=== PATIENT | male | born 1955 | race Caucasian/White ===

== ENCOUNTER 2016-10-11 18:08 | Inpatient (IN) ==
[2016-10-11] MEDS ORDERED: Ipratropium/Albuterol Neb 3 ML IH ONE ×2 (18:12→21:58)
[2016-10-11] MEDS ORDERED: methylPREDNISolone 125 MG/2 ML VIAL IVP ONE (18:12)
[2016-10-11] MEDS ORDERED: Albuterol 2.5 MG/3 ML NEBULIZER IH ONE (18:12)
--- NOTE | 2016-10-11 18:16 | Emergency Department Note ---
Disposition Clinical Impression: Respiratory failure with hypercapnia Qualifiers: Chronicity: acute on chronic Qualified Code(s): J96.22 - Acute and chronic respiratory failure with hypercapnia Pneumonia Qualifiers: Pneumonia type: due to unspecified organism Laterality: left Lung location: lower lobe of lung Qualified Code(s): J18.1 - Lobar pneumonia, unspecified organism Disposition: Admitted As Inpatient Condition: Fair Referrals: Rowdy Tinajero DO [Primary Care Provider] - Forms: ED Satisfaction Letter Time of Disposition: 22:12 Altered Mental Status HPI - General Chief Complaint: ED Altered Mental Status Stated Complaint: AMS Time Seen by Provider: 10/11/16 18:11 Source: EMS Mode of arrival: EMS Limitations: altered mental status Nursing Notes Reviewed: Yes Vital Signs Reviewed: Yes - History of Present Illness HPI Narrative: 61-year-old white male was seen here earlier today for a headache. He followed up with his primary care provider outside the emergency department. He was discharged from there to home. He returns today with increased lethargy. He has severe COPD, he is on home oxygen. He is confused and lethargic and could not provide any additional history. 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 confirmed by: family member (Father) Context: COPD Associated symptoms: Reports: other Treatments prior to arrival: oxygen - Related Data Home Medications Medication Instructions Recorded Confirmed Albuterol Neb [Proventil Neb] 2.5 mg IH Q4HR PRN 08/28/15 10/11/16 Albuterol Sulfate [Albuterol 2 puff IH Q4H PRN 08/28/15 10/11/16 Inhaler] Fluticasone/Salmeterol [Advair 1 puff PO BID 08/28/15 10/11/16 100-50 Diskus] Lovastatin 40 mg PO DAILY 08/28/15 10/11/16 Omeprazole [PriLOSEC] 20 mg PO DAILY 08/28/15 10/11/16 Tiotropium [Spiriva] 18 mcg IH DAILY 08/28/15 10/11/16 traZODone [TraZODone] 50 mg PO HS PRN 08/28/15 10/11/16 Insulin Glargine [Lantus] 12 unit SQ HS 09/29/15 10/11/16 Ibuprofen [Motrin] 600 mg PO Q8HR PRN 12/02/15 10/11/16 Famotidine [Heartburn Prevention] 20 mg PO HS 05/24/16 10/11/16 Furosemide [Lasix] 80 mg PO BID 05/24/16 10/11/16 Potassium Chloride [K-Tab ER] 20 meq PO DAILY 05/24/16 10/11/16 Cetirizine HCl [All Day Allergy] 10 mg PO DAILY 05/25/16 10/11/16 Guaifenesin [Iophen Nr] 200 mg PO Q4H PRN 05/25/16 10/11/16 Sennosides [Senna] 17.2 mg PO HS 05/25/16 10/11/16 Previous Rx's Medication Instructions Recorded predniSONE [PredniSONE] 40 mg PO DAILY 5 Days 05/27/16 Albuterol Sulfate [Albuterol 2 puff IH Q6HR PRN #1 hfa.aer.ad 06/27/16 Inhaler] predniSONE [PredniSONE] 10 mg PO DAILY #20 tablet 06/27/16 Allergies Allergy/AdvReac Type Severity Reaction Status Date / Time No Known Allergies Allergy Verified 10/11/16 07:33 Limitations: ROS unobtainable due to patients medical condition (Altered mental status) Past Medical History - Past Medical History Medical history: Reports: cancer, CHF, COPD, diabetes, GERD, hyperlipidemia, hypertension, other Surgical history: Reports: sinus surgery, other Psychiatric history: Reports: anxiety, depression - Social History Smoking Status: Former smoker Smokeless Tobacco Status: No Alcohol use: Reports: none Drug use: Reports: none Physical Exam - General Limitations: altered mental status General appearance: lethargic, other (Arousable, hard of hearing,) - Head Head exam: atraumatic, normocephalic - Eye Eye exam: Present: PERRL, EOMI - ENT ENT exam: normal oropharynx, mucous membranes moist, TM's normal bilaterally - Neck Neck exam: Present: normal inspection, full ROM, trachea midline. Absent: tenderness - Respiratory Respiratory exam: Present: respiratory distress (Moderately dyspneic), wheezes ( Bilateral moderate expiratory), prolonged expiratory phase - Cardiovascular Cardiovascular exam: Present: regular rate, normal rhythm, normal heart sounds - Abdominal Exam Abdominal exam: Present: soft, Non-Tender, normal bowel sounds. Absent: organomegaly, mass - Extremities Exam Extremities exam: Present: normal inspection. Absent: calf tenderness - Back Exam Back exam: Present: normal inspection - Neurological Exam Neurological exam: Present: other (Allergic but arousable. Hard of hearing. Mumbles a few words that are understandable. No facial asymmetry. Tongue is midline. He moves all extremities spontaneously.) - Psychiatric Psychiatric exam: Present: depressed, flat affect - Skin Skin exam: Present: warm, dry. Absent: cyanosis, diaphoresis Course - Reevaluation(s) Reevaluation #1: Clinically improved. His blood gases improved. He is more alert and asking for something to eat. His heart rate is still around 125 to 1:30. He is moving air better. I spoke with Dr. Roberts. He has accepted the patient for admission. Time: 22:10 Vital Signs Temperature 98.7 F 10/11/16 18:10 Pulse Rate 138 10/11/16 18:10 Respiratory Rate 22 10/11/16 18:10 Blood Pressure 133/98 10/11/16 18:10 O2 Sat by Pulse Oximetry 94 10/11/16 18:10 Temperature 98.7 F 10/11/16 20:53 Pulse Rate 137 10/11/16 20:53 Respiratory Rate 20 10/11/16 20:53 Blood Pressure 137/86 10/11/16 20:53 O2 Sat by Pulse Oximetry 94 10/11/16 20:53 Oxygen Delivery Oxygen Delivery Bipap Altered Mental Status - MDM Narrative Medical decision making narrative: Differential includes but is not limited to intracerebral hemorrhage, subarachnoid hemorrhage, respiratory failure, overmedicated - Lab Data Lab results reviewed: Yes I reviewed the patient's lab results. Result diagrams: 10/11/16 18:26 10/11/16 18:26 Lab Results 10/11/16 10/11/16 10/11/16 Range/Units 18:26 18:26 19:20 WBC 9.7 (4.3-11.1) K/mcL RBC 4.91 (4.19-5.50) M/mcL Hgb 14.0 (12.9-16.9) g/dL Hct 45.5 (37.5-50.1) % MCV 92.7 (83.0-100.0) fL MCH 28.5 (28.0-33.3) pg MCHC 30.8 L (31.6-35.5) g/dL RDW 13.6 (11.5-14.5) % Plt Count 229 (140-400) K/mcL MPV 9.6 (9.4-12.4) fL Immature Gran % 0.4 (0-4) % Seg Neutrophils % 79.1 % Lymphocytes % 11.9 % Monocytes % 7.0 % Eosinophils % 1.3 % Basophils % 0.3 % Neutrophils # 7.7 (1.6-8.9) K/mcL Lymphocytes # 1.2 (0.6-4.6) K/mcL Monocytes # 0.7 (0.0-1.3) K/mcL Eosinophils # 0.1 (0.0-0.6) K/mcL Basophils # 0.0 (0.0-0.2) K/mcL ABG pH 7.24 L (7.32-7.45) pH Units ABG pCO2 100 H* (35-45) mmHg ABG pO2 77 L (85-104) mmHg ABG HCO3 42.3 H (21-27) mEQ/L ABG Total CO2 45.3 H (20-26) mEq/L ABG O2 Saturation 91 L (95-98) % ABG Base Excess 14.8 H (-2.0 to 3.0) mEq/L VBG Lactic Acid (0.5-2.2) mmol/L Respiration Rate Liter Flow 4 L/MIN Blood Gas Modality NC Inspired O2 36 % Inspiratory BiPAP cm H2O Expiratory BiPAP cm H2O Sodium 144 (136-145) mEq/L Potassium 4.7 H (3.5-4.5) mEq/L Chloride 96 L (98-109) mEq/L Carbon Dioxide 39 H (19-29) mEq/L BUN 15 (8-26) mg/dL Creatinine 0.84 (0.72-1.25) mg/dL Est GFR ( Amer) > 60 (> 60) Est GFR (Non-Af Amer) > 60 (> 60) BUN/Creatinine Ratio 18 (6-26) Glucose 215 H (70-99) mg/dL Calculated Osmolality 305 H (280-300) Calcium 9.4 (8.6-10.8) mg/dL Total Bilirubin 0.3 (0.2-1.2) mg/dL AST 26 (5-34) Units/L ALT 29 (0-55) Units/L Alkaline Phosphatase 86 (38-126) Units/L Serum Total Protein 7.1 (6.0-8.3) g/dL Albumin 3.6 (3.5-5.0) g/dL Globulin 3.5 (2.4-3.5) g/dL Albumin/Globulin Ratio 1.0 L (1.1-2.2) 10/11/16 10/11/16 Range/Units 21:13 21:41 WBC (4.3-11.1) K/mcL RBC (4.19-5.50) M/mcL Hgb (12.9-16.9) g/dL Hct (37.5-50.1) % MCV (83.0-100.0) fL MCH (28.0-33.3) pg MCHC (31.6-35.5) g/dL RDW (11.5-14.5) % Plt Count (140-400) K/mcL MPV (9.4-12.4) fL Immature Gran % (0-4) % Seg Neutrophils % % Lymphocytes % % Monocytes % % Eosinophils % % Basophils % % Neutrophils # (1.6-8.9) K/mcL Lymphocytes # (0.6-4.6) K/mcL Monocytes # (0.0-1.3) K/mcL Eosinophils # (0.0-0.6) K/mcL Basophils # (0.0-0.2) K/mcL ABG pH 7.27 L (7.32-7.45) pH Units ABG pCO2 93 H* (35-45) mmHg ABG pO2 70 L (85-104) mmHg ABG HCO3 42.5 H (21-27) mEQ/L ABG Total CO2 45.4 H (20-26) mEq/L ABG O2 Saturation 89 L (95-98) % ABG Base Excess 15.6 H (-2.0 to 3.0) mEq/L VBG Lactic Acid 1.2 (0.5-2.2) mmol/L Respiration Rate 14 Liter Flow L/MIN Blood Gas Modality Bipap Inspired O2 40 % Inspiratory BiPAP 14 cm H2O Expiratory BiPAP 6 cm H2O Sodium (136-145) mEq/L Potassium (3.5-4.5) mEq/L Chloride (98-109) mEq/L Carbon Dioxide (19-29) mEq/L BUN (8-26) mg/dL Creatinine (0.72-1.25) mg/dL Est GFR ( Amer) (> 60) Est GFR (Non-Af Amer) (> 60) BUN/Creatinine Ratio (6-26) Glucose (70-99) mg/dL Calculated Osmolality (280-300) Calcium (8.6-10.8) mg/dL Total Bilirubin (0.2-1.2) mg/dL AST (5-34) Units/L ALT (0-55) Units/L Alkaline Phosphatase (38-126) Units/L Serum Total Protein (6.0-8.3) g/dL Albumin (3.5-5.0) g/dL Globulin (2.4-3.5) g/dL Albumin/Globulin Ratio (1.1-2.2) - Radiology Data Radiology results reviewed: Yes I reviewed the patient's radiology results. ITS Impressions Chest X-Ray 10/11/16 18:12 IMPRESSION: Interval increase in partially loculated right pleural effusion with basilar volume loss. Probable left basilar infiltrate. D/ / Felipe Goetz MD / Felipe Goetz MD Interpreting Provider: Felipe Goetz MD Head CT 10/11/16 18:12 IMPRESSION: No acute intracranial abnormality. D/ / Dru Mayo MD / Dru Mayo MD Interpreting Provider: Dru Mayo MD - EKG Data EKG attestation: Yes I reviewed and interpreted this EKG. EKG results narrative: His tachycardia, rate of 140, right ventricular hypertrophy, age indeterminate anterior infarct. Rhythm strip shows sinus tachycardia with rate 140, MI interval 131 ms, QRS of 94 ms with no other ectopy as interpreted by me. TPA Checklist - LKW: 3-4.5 hrs Add. Contraindications Patient/family understanding: The patient/family members have been counseled and understood the risk, benefit , and alternatives of treatment. Critical Care Time Critical Care Time: Yes Total Critical Care Time: 30 Attestation: Critical care time includes my initial evaluation, reevaluation, consultation with the hospitalist, review of lab, ABGs, EKG, x-ray. No procedures were performed.
[2016-10-11 18:36] LABS: Basophils % 0.3 %; Eosinophils # 0.1 K/mcL (0.0-0.6); Eosinophils % 1.3 %; Hematocrit 45.5 % (37.5-50.1); Immature Granulocytes % 0.4 % (0-4); Lymphocytes # 1.2 K/mcL (0.6-4.6); Lymphocytes % 11.9 %; Mean Corpuscular HGB Conc 30.8 g/dL (31.6-35.5); Mean Corpuscular Hemoglobin 28.5 pg (28.0-33.3); Mean Corpuscular Volume 92.7 fL (83.0-100.0); Mean Platelet Volume 9.6 fL (9.4-12.4); Monocytes # 0.7 K/mcL (0.0-1.3); Neutrophils # 7.7 K/mcL (1.6-8.9); Platelet Count 229 K/mcL (140-400); Red Blood Count 4.91 M/mcL (4.19-5.50); Red Cell Distribution Width 13.6 % (11.5-14.5); Segmented Neutrophils % 79.1 %
[2016-10-11 18:54] LABS: Alanine Aminotransferase 29 Units/L (0-55); Albumin 3.6 g/dL (3.5-5.0); Alkaline Phosphatase 86 Units/L (38-126); Aspartate Amino Transferase 26 Units/L (5-34); BUN/Creatinine Ratio 18 (6-26); Bilirubin,Total 0.3 mg/dL (0.2-1.2); Blood Urea Nitrogen 15 mg/dL (8-26); Calcium 9.4 mg/dL (8.6-10.8); Carbon Dioxide 39 mEq/L (19-29); Chloride 96 mEq/L (98-109); Globulin 3.5 g/dL (2.4-3.5); Glucose 215 mg/dL (70-99); Osmolality,Calculated 305 (280-300); Potassium 4.7 mEq/L (3.5-4.5); Sodium 144 mEq/L (136-145); Total Protein 7.1 g/dL (6.0-8.3); eGFR For African Americans > 60 (> 60); eGFR For Non-African Americans > 60 (> 60)
[2016-10-11 19:29] LABS: ABG PH 7.24 pH Units (7.32-7.45)
[2016-10-11 19:31] LABS: ABG Base Excess 14.8 mEq/L (-2.0 to 3.0); ABG HCO3 42.3 mEQ/L (21-27); ABG Oxygen Saturation 91 % (95-98); ABG PCO2 100 mmHg (35-45); ABG PO2 77 mmHg (85-104); ABG TCO2 45.3 mEq/L (20-26); Blood Gas FiO2 36 %; Blood Gas Liter Flow 4 L/MIN
[2016-10-11] MEDS ORDERED: Azithromycin 500 MG in D5% in Water 250 ML IVPB ONE (20:58)
[2016-10-11 21:52] LABS: ABG PH 7.27 pH Units (7.32-7.45)
[2016-10-11 21:54] LABS: ABG PCO2 93 mmHg (35-45); ABG PO2 70 mmHg (85-104)
[2016-10-11 21:55] LABS: ABG Base Excess 15.6 mEq/L (-2.0 to 3.0); ABG HCO3 42.5 mEQ/L (21-27); ABG Oxygen Saturation 89 % (95-98); ABG TCO2 45.4 mEq/L (20-26); Blood Gas BiPAP(E) 6 cm H2O; Blood Gas BiPAP(I) 14 cm H2O; Blood Gas FiO2 40 %; Blood Gas Respiration Rate 14
[2016-10-12] MEDS ORDERED: Albuterol 2.5 MG/3 ML NEBULIZER IH PRN (00:04)
[2016-10-12] MEDS ORDERED: Naloxone 0.4 MG/ML INJ IVP PRN (00:04)
[2016-10-12] MEDS ORDERED: Ipratropium/Albuterol Neb 3 ML AER SCH (00:04)
[2016-10-12] MEDS ORDERED: traZODone 50 MG TABLET PO PRN (00:04)
[2016-10-12] MEDS ORDERED: Azithromycin 500 MG in D5% in Water 250 ML IVPB SCH ×2 (00:04→22:00)
[2016-10-12] MEDS ORDERED: MethylPREDNISolone 40 MG/ML VIAL IVP ONE (00:04)
[2016-10-12] MEDS ORDERED: Loratadine 10 MG TABLET PO SCH (09:00)
[2016-10-12] MEDS: Acetaminophen 325 MG TABLET PO PRN ×2 (09:27→18:11)
[2016-10-12] MEDS: Furosemide 40 MG TABLET PO SCH ×2 (09:28→17:47)
[2016-10-12] MEDS: Ipratropium/Albuterol Neb 3 ML AER PRN ×3 (09:29→22:09)
--- NOTE | 2016-10-12 12:32 | Internal Med History&Physical ---
Date of Encounter: 10/12/16 Time of Encounter: 11:40 Assessment and Plan (1) Acute respiratory failure with hypercapnia Current visit: No Status: Acute He has been started on Rocephin and Zithromax. I will order chest CT to further evaluate. (2) HTN (hypertension) Current visit: No Status: Chronic Blood pressures are well controlled on Lasix. Qualifiers: Hypertension type: essential hypertension Qualified Code(s): I10 - Essential (primary) hypertension (3) Type 2 diabetes mellitus Current visit: No Status: Chronic We will check hemoglobin A1c in a.m. We will do Accu-Cheks with SSI. 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 [facility] We will do repeat chest CT as per above. Qualifiers: Laterality: right Lung location: unspecified part of lung Qualified Code( s): C34.91 - Malignant neoplasm of unspecified part of right bronchus or lung Internal Medicine - H&P: HPI Chief complaint: Dyspnea Admitted From: Home Plans for Post Hospital Care: Home History of present illness: Mr. Tamez is a 61 year old male who came to emergency room earlier the day of admission complaining of dyspnea. He was directed to go to his PCP office. He was seen there but reports no treatment given. He returned to emergency room a few hours later complaining of worsening dyspnea. He was evaluated and found to have right pleural effusion and evidence acute respiratory insufficiency with hypercapnia on ABG. [facility]. He was hospitalized last at [facility] December 2015 with dyspnea. He was hospitalized May 2016 at [facility] with exacerbation of COPD. He has history of lung cancer but does not know the cell type. He reported he had chemotherapy and radiation therapy at [facility]. He does not recall when his last appointment was at [facility] and does not think he has a future appointment pending. He smoked from age [age] up to 4 packs per day. He has a diagnosis of COPD and wears oxygen 29/11. He describes what seems to be a thoracentesis procedure done at [facility] several months ago but was told there was no malignancy found in cytology of fluid. Past Med Surg Social Fam HX - Past Medical History Medical history: cancer, CHF, COPD, diabetes, GERD, hyperlipidemia, hypertension , other Psychiatric history: anxiety, depression - Past Surgical History Surgical History: sinus surgery, other - Social History Smoking Status: Former smoker Smokeless Tobacco Status: No Alcohol use: none Drug use: none - Family History Father Adopted: No Family Member Ethnicity: Non- Living Status: Hx Family Cardiac Disorders: No Hx Family Respiratory Disorders: Yes Hx Family Cancer: No Hx Family GI Disorders: No Hx Family Endocrine Disorder: No Hx Family Neuromuscular Disorders: No Hx Family Neurologic Disorders: No Hx Family HEENT Disorders: No Hx Family Autoimmune Disorders: No Internal Medicine - H&P: Meds Albuterol Neb [Proventil Neb] 2.5 mg IH Q4HR PRN 08/28/15 [History] Albuterol Sulfate [Albuterol Inhaler] 2 puff IH Q4H PRN 08/28/15 [History] Fluticasone/Salmeterol [Advair 100-50 Diskus] 1 puff PO BID 08/28/15 [History] Lovastatin 40 mg PO DAILY 08/28/15 [History] Omeprazole [PriLOSEC] 20 mg PO DAILY 08/28/15 [History] Tiotropium [Spiriva] 18 mcg IH DAILY 08/28/15 [History] traZODone [TraZODone] 50 mg PO HS PRN 08/28/15 [History] Insulin Glargine [Lantus] 12 unit SQ HS 09/29/15 [History] Ibuprofen [Motrin] 600 mg PO Q8HR PRN 12/02/15 [History] Famotidine [Heartburn Prevention] 20 mg PO HS 05/24/16 [History] Furosemide [Lasix] 80 mg PO BID 05/24/16 [History] Potassium Chloride [K-Tab ER] 20 meq PO DAILY 05/24/16 [History] Cetirizine HCl [All Day Allergy] 10 mg PO DAILY 05/25/16 [History] Sennosides [Senna] 17.2 mg PO HS 05/25/16 [History] Albuterol Sulfate [Albuterol Inhaler] 2 puff IH Q6HR PRN #1 hfa.aer.ad 06/27/16 [Rx] Allergies No Known Allergies Allergy (Verified 10/11/16 07:33) All Systems PM: A 10-system review of systems was performed and is negative for pertinent findings except as documented above in the HPI. Review of systems: Review of systems is obtained primarily from old records. He is very hard of hearing. Gen.: His weight had increased from 81.647 kg at the February 2015 [facility] hospitalization to admission weight of 99.337 kg December 2015. It has declined to 90.718 kg now.. Cardiovascular: He denies MT hypertension heart failure angina DVT or pulmonary embolus Respiratory: As per history of present illness GI: He has no known disorder of his liver gallbladder or exocrine pancreas : There is no known hematuria dysuria or kidney stones Neurologic: No history of large distribution strokes or seizures. He does have severe hearing loss Endocrine: He has been diagnosed with DM 2 with his most recent hemoglobin A1c being 8.5% on 08/30/2015. He has hyperlipidemia. TSH was suppressed at 0.277 on 08/30/2015. Hematology/oncology: There is no known blood disorders. He had lung cancer as per history of present illness. There are no other known malignancies. Psychiatric: He has major depressive disorder and panic attacks. Musk skeletal: He has DJD but no known gout or osteoporosis - Constitutional Vitals: Temp Pulse Resp BP Pulse Ox 98.3 F 117 18 106/68 91 10/12/16 10:21 10/12/16 10:21 10/12/16 10:21 10/12/16 10:21 10/12/16 10:21 Exam: Gen.: He is a well-developed overweight male lying in bed who appears in mild respiratory distress, especially when talking HEENT: Head is atraumatic and normal cephalic. Eyes: EOMI. There is no scleral icterus. Mouth: Mucosa is moist. Neck: Supple and nontender. There is no thyromegaly or adenopathy noted. He has a large jowl Heart: Regular and tachycardic at a rate approximately 116/m Lungs: No wheezes or crackles are heard. He has diminished breath sounds diffusely. Abdomen: He has a large abdomen. It is nontender to palpation. No masses or guarding noted. Extremities: There is no cyanosis edema or clubbing noted. Dorsalis pedis and posterior tibial pulses are trace to 1+ palpable bilaterally. His feet are warm to touch. Neurologic: Mental status: He is very hard of hearing making conversation difficult. He seems to be a fair historian at best. He does not remember several details of his history. Cranial nerves: Smile is symmetric. Forehead wrinkles bilaterally. Tongue protrudes midline. EOMI. Motor: There is no pronator drift. Cerebellar: Finger to nose is intact bilaterally. Skin: Warm and dry. He has areas of scaling on his arms Internal Med - H&P Results - Labs CBC & Chem 7: 10/11/16 18:26 10/11/16 18:26
[2016-10-12] MEDS ORDERED: D5% in Water 1,000 ML IVC PRN (14:13)
[2016-10-12] MEDS ORDERED: Dextrose Gel 15 GM PO PRN ×2 (14:13)
[2016-10-12] MEDS ORDERED: *HR* Dextrose 50 % in Water (Syg) 50 ML SYRINGE IVP PRN (14:13)
[2016-10-12] MEDS ORDERED: Mag Hydrox/Al Hydrox/Simeth 30 ML UDC PO PRN (17:32)
[2016-10-12] MEDS: *HR* Enoxaparin 40 MG/0.4 ML SYRINGE SQ SCH (17:47)
[2016-10-12] MEDS: Insulin LISPRO 300 UNITS/3 ML VIAL SQ SCH (17:48)
[2016-10-12] MEDS ORDERED: Ondansetron 4 MG/2 ML VIAL IVP PRN (20:53)
[2016-10-12] MEDS ORDERED: Famotidine 20 MG TABLET PO SCH (21:00)
[2016-10-12] MEDS ORDERED: Insulin LISPRO 300 UNITS/3 ML VIAL SQ SCH (21:00)
[2016-10-12] MEDS ORDERED: Insulin DETEMIR 100 UNIT/ML X5UNITS SQ SCH (21:00)
[2016-10-12] MEDS ORDERED: NON-FORMULARY MEDICATION 1 EACH EACH (Insulin Glargine [Lantus] 12 UNIT) SQ SCH (21:00)
[2016-10-12] MEDS ORDERED: Sennosides 8.6 MG TABLET PO SCH (21:00)
[2016-10-12] MEDS: *HR* HYDROcodone/Acet 5/325 mg TABLET PO PRN (21:08)
--- NOTE | 2016-10-12 23:55 | Electrocardiograph Report ---
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
[2016-10-13] MEDS: *HR* HYDROcodone/Acet 5/325 mg TABLET PO PRN (05:02)
[2016-10-13] MEDS: *HR* Enoxaparin 40 MG/0.4 ML SYRINGE SQ SCH (05:02)
[2016-10-13 05:35] LABS: Basophils % 0.3 %; Eosinophils % 0.5 %; Hematocrit 40.3 % (37.5-50.1); Hemoglobin 12.5 g/dL (12.9-16.9); Immature Granulocytes % 0.2 % (0-4); Lymphocytes # 1.7 K/mcL (0.6-4.6); Lymphocytes % 19.2 %; Mean Corpuscular Hemoglobin 28.4 pg (28.0-33.3); Mean Corpuscular Volume 91.6 fL (83.0-100.0); Mean Platelet Volume 10.6 fL (9.4-12.4); Monocytes # 0.9 K/mcL (0.0-1.3); Monocytes % 9.6 %; Neutrophils # 6.2 K/mcL (1.6-8.9); Platelet Count 210 K/mcL (140-400); Red Cell Distribution Width 13.7 % (11.5-14.5); Segmented Neutrophils % 70.2 %
[2016-10-13 06:00] LABS: BUN/Creatinine Ratio 24 (6-26); Blood Urea Nitrogen 19 mg/dL (8-26); Calcium 9.3 mg/dL (8.6-10.8); Chloride 89 mEq/L (98-109); Glucose 159 mg/dL (70-99); Osmolality,Calculated 302 (280-300); Potassium 3.5 mEq/L (3.5-4.5); Sodium 143 mEq/L (136-145); eGFR For African Americans > 60 (> 60); eGFR For Non-African Americans > 60 (> 60)
[2016-10-13 06:21] LABS: Thyroid Stimulating Hormone 1.374 mcIU/mL (0.350-4.840)
[2016-10-13 06:47] LABS: Carbon Dioxide 42 mEq/L (19-29)
[2016-10-13 07:33] VITALS: BP 116/71
[2016-10-13] MEDS: Insulin LISPRO 300 UNITS/3 ML VIAL SQ SCH (07:39)
[2016-10-13] MEDS: Furosemide 40 MG TABLET PO SCH (07:39)
[2016-10-13 10:05] LABS: Hemoglobin A1C 8.3 %
--- NOTE | 2016-10-13 10:10 | Discharge Summary ---
Date of Encounter: 10/13/16 Time of Encounter: 09:55 - Discharge Diagnosis (1) Acute respiratory failure with hypercapnia Priority: Primary Status: Acute (2) HTN (hypertension) Priority: Secondary Status: Chronic Qualifiers: Hypertension type: essential hypertension Qualified Code(s): I10 - Essential (primary) hypertension (3) Type 2 diabetes mellitus Priority: Secondary Status: Chronic Qualifiers: Diabetes mellitus complication status: with hyperglycemia Diabetes mellitus intermediate card tender insulin use: with intermediate card tender use Qualified Code(s): E11.65 - Type 2 diabetes mellitus with hyperglycemia; 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 (4) Lung cancer Priority: Secondary Status: Chronic Qualifiers: Laterality: right Lung location: unspecified part of lung Qualified Code( s): C34.91 - Malignant neoplasm of unspecified part of right bronchus or lung - Discharge Medications Prescriptions: Cefuroxime PO [Ceftin] 500 mg PO Q12HR #6 tablet Azithromycin [Zithromax] 250 mg PO DAILY #3 tablet Lactobacillus [Culturelle] 1 each PO BID #6 cap.sprink Home Medications: Albuterol Neb [Proventil Neb] 2.5 mg IH Q4HR PRN 08/28/15 [History] Albuterol Sulfate [Albuterol Inhaler] 2 puff IH Q4H PRN 08/28/15 [History] Fluticasone/Salmeterol [Advair 100-50 Diskus] 1 puff PO BID 08/28/15 [History] Lovastatin 40 mg PO DAILY 08/28/15 [History] Omeprazole [PriLOSEC] 20 mg PO DAILY 08/28/15 [History] Tiotropium [Spiriva] 18 mcg IH DAILY 08/28/15 [History] traZODone [TraZODone] 50 mg PO HS PRN 08/28/15 [History] Insulin Glargine [Lantus] 12 unit SQ HS 09/29/15 [History] Ibuprofen [Motrin] 600 mg PO Q8HR PRN 12/02/15 [History] Famotidine [Heartburn Prevention] 20 mg PO HS 05/24/16 [History] Furosemide [Lasix] 80 mg PO BID 05/24/16 [History] Potassium Chloride [K-Tab ER] 20 meq PO DAILY 05/24/16 [History] Sennosides [Senna] 17.2 mg PO HS 05/25/16 [History] Albuterol Sulfate [Albuterol Inhaler] 2 puff IH Q6HR PRN #1 hfa.aer.ad 06/27/16 [Rx] Azithromycin [Zithromax] 250 mg PO DAILY #3 tablet 10/13/16 [Rx] Cefuroxime PO [Ceftin] 500 mg PO Q12HR #6 tablet 10/13/16 [Rx] Lactobacillus [Culturelle] 1 each PO BID #6 cap.sprink 10/13/16 [Rx] Allergies/Adverse Reactions: Allergies No Known Allergies Allergy (Verified 10/11/16 07:33) Date of admission: 10/12/16 14:06 Primary care physician: Rowdy Tinajero DO - Patient Status Disposition: Home, Self-Care Condition: Fair Overall status at discharge: patient is progressing back to baseline - Discharge Instructions Follow Up With: Rowdy Tinajero DO [Primary Care Provider] - 1 week - Diet and Activity Activity: resume usual activities as tolerated Diet: advance to your usual diet Hospital course: Mr. Tamez is a 61 year old male who came to emergency room earlier the day of admission complaining of dyspnea. He was directed to go to his PCP office. He was seen there but reports no treatment given. He returned to emergency room a few hours later complaining of worsening dyspnea. He was evaluated and found to have right pleural effusion and evidence acute respiratory insufficiency with hypercapnia on ABG. He was stabilized and admitted to [facility] floor for ongoing care needs. Initial orders were written by the emergency room physician. I saw him on October 12 and performed the history and physical. He was started on Rocephin and Zithromax. Chest CT was ordered to further evaluate. The CT showed a large right pleural effusion worsened from previous CT of 05/25/2016. There was a persistent somewhat masslike consolidation in the right middle and right lower lobes in the perihilar region mildly worsened from previous CT. Clinically the patient improved with less dyspnea when I saw him on October 13. Attempts made to obtain records from [facility] oncology were unsuccessful. When I saw him on October 13 I felt he was stable for discharge home. I recommended he follow with his PCP Dr. Tinajero within 1 week. He is uncertain about any future appointments with [facility] oncologists. He will receive 3 additional days of antibiotic and probiotics at discharge for possible pneumonia. - Time Spent with Patient Total time spent providing and/or coordinating discharge services: - Constitutional Vitals: Temp Pulse Resp BP Pulse Ox 98.7 F 104 20 116/71 94 10/13/16 06:36 10/13/16 07:32 10/13/16 07:32 10/13/16 07:32 10/13/16 07:32
== END 2016-10-13 11:39 | disposition home or self-care (01) | DRG 133 ==
LOC: EMEROOPIK 18:08 → INPPIK 18:08
PROVIDERS: ADMIT Internal Medicine; ATTEND Internal Medicine

== ENCOUNTER 2017-03-28 09:06 | Observation (INO) ==
[2017-03-28] MEDS ORDERED: Albuterol 2.5 MG/3 ML NEBULIZER IH ONE (09:13)
[2017-03-28] MEDS ORDERED: Ipratropium/Albuterol Neb 3 ML IH ONE (09:13)
[2017-03-28] MEDS ORDERED: methylPREDNISolone 125 MG/2 ML VIAL IVP ONE (09:13)
[2017-03-28] MEDS ORDERED: Ondansetron 4 MG/2 ML VIAL IVP ONE (09:13)
--- NOTE | 2017-03-28 09:18 | Emergency Department Note ---
Disposition Clinical Impression: COPD exacerbation UTI (urinary tract infection) Qualifiers: Urinary tract infection type: acute cystitis Hematuria presence: without hematuria Qualified Code(s): N30.00 - Acute cystitis without hematuria Disposition: Admitted As Inpatient Condition: Good Referrals: Rowdy Tinajero DO [Primary Care Provider] - Forms: ED Satisfaction Letter Time of Disposition: 13:53 SOB HPI - General Chief Complaint: ED Shortness of Breath/Dyspnea Stated Complaint: MADDISON Time Seen by Provider: 03/28/17 09:10 Source: patient, EMS Mode of arrival: EMS Limitations: no limitations Nursing Notes Reviewed: Yes Vital Signs Reviewed: Yes - History of Present Illness 61-year-old white male with history of COPD, CHF, cancer presents with a three- day history of increased difficulty breathing, increased cough. His cough is nonproductive. He denies chest pain. He states she is nauseated and sore in his upper abdomen. He states he has some numbness around his mouth. He is on 3 L of oxygen at home. He denies fever. Pt Subjective Complaint: shortness of breath, cough Onset (ago): day(s) Context: recent illness Severity: moderate Consistency/Duration: constant Improves with: oxygen Worsens with: lying flat Known history of: COPD, congestive heart failure, other (Cancer) Associated symptoms: Reports: nausea/vomiting Treatment prior to arrival: oxygen Cough present: Yes Cough Description: Involuntary Cough Frequency: Intermittent Sputum production: No Sputum Amount: None - Related Data Home oxygen amount: 3 liters Home Medications Medication Instructions Recorded Confirmed Albuterol Neb [Proventil Neb] 2.5 mg IH Q4HR PRN 08/28/15 03/28/17 Albuterol Sulfate [Albuterol 2 puff IH Q4H PRN 08/28/15 03/28/17 Inhaler] Fluticasone/Salmeterol [Advair 1 puff PO BID 08/28/15 03/28/17 100-50 Diskus] Lovastatin 40 mg PO DAILY 08/28/15 03/28/17 Omeprazole [PriLOSEC] 20 mg PO DAILY 08/28/15 03/28/17 Tiotropium [Spiriva] 18 mcg IH DAILY 08/28/15 03/28/17 traZODone [TraZODone] 50 mg PO HS PRN 08/28/15 03/28/17 Insulin Glargine [Lantus] 12 unit SQ HS 09/29/15 03/28/17 Ibuprofen [Motrin] 600 mg PO Q8HR PRN 12/02/15 03/28/17 Famotidine [Heartburn Prevention] 20 mg PO HS 05/24/16 03/28/17 Furosemide [Lasix] 80 mg PO BID 05/24/16 03/28/17 Potassium Chloride [K-Tab ER] 20 meq PO DAILY 05/24/16 03/28/17 Sennosides [Senna] 17.2 mg PO HS 05/25/16 03/28/17 Previous Rx's Medication Instructions Recorded Albuterol Sulfate [Albuterol 2 puff IH Q6HR PRN #1 hfa.aer.ad 06/27/16 Inhaler] Earl/Poly/Jaylan OINT [Triple 1 appl TP TID #30 tube 11/15/16 Antibiotic Ointment] Tramadol HCl [Ultram] 50 mg PO QID #8 tab 11/15/16 Azithromycin [Azithromycin 6-Tab 250 mg PO PER PKG DI #6 tab 12/30/16 Pack] Allergies Allergy/AdvReac Type Severity Reaction Status Date / Time No Known Allergies Allergy Verified 10/11/16 07:33 All systems ED: reviewed and negative except as stated. Constitutional: Denies: fever, chills Eyes: Denies: eye discharge ENT ED: Denies: ear pain, throat pain Cardiovascular: Denies: chest pain Respiratory: Reports: cough, dyspnea. Denies: sputum production Gastrointestinal: Reports: abdominal pain, nausea. Denies: vomiting Genitourinary: Denies: urgency, dysuria, frequency Musculoskeletal: Reports: back pain (Low back midline) Integumentary: Denies: rash Neurological: Reports: headache, weakness, numbness (Around his mouth) Past Medical History - Past Medical History Medical history: Reports: cancer, CHF, COPD, diabetes, GERD, hyperlipidemia, hypertension, other Surgical history: Reports: sinus surgery, other Psychiatric history: Reports: anxiety, depression - Social History Smoking Status: Former smoker Smokeless Tobacco Status: No Alcohol use: Reports: none Drug use: Reports: none Physical Exam - General Limitations: no limitations General appearance: alert, in no apparent distress - Head Head exam: atraumatic, normocephalic - Eye Eye exam: Present: PERRL, EOMI. Absent: scleral icterus, conjunctival injection - ENT ENT exam: normal oropharynx, mucous membranes moist, TM's normal bilaterally - Neck Neck exam: Present: normal inspection, full ROM, trachea midline. Absent: lymphadenopathy - Respiratory Respiratory exam: Present: wheezes (Mild bilateral expiratory), prolonged expiratory phase. Absent: respiratory distress, accessory muscle use - Cardiovascular Cardiovascular exam: Present: tachycardia. Absent: systolic murmur, diastolic murmur, gallop - Abdominal Exam Abdominal exam: Present: soft, Non-Tender, other (Obese). Absent: distention, guarding, rebound, organomegaly, mass - Extremities Exam Extremities exam: Present: normal inspection, full ROM, normal capillary refill. Absent: tenderness, pedal edema, calf tenderness - Neurological Exam Neurological exam: Present: alert, oriented X3. Absent: motor sensory deficit - Psychiatric Psychiatric exam: Present: normal affect, normal mood - Skin Skin exam: Present: warm, dry, intact, normal color. Absent: cyanosis, diaphoresis Course - Reevaluation(s) Reevaluation #1: Critical CO2 called of 44. Time: 10:23 Vital Signs Temperature 98.3 F 03/28/17 09:09 Pulse Rate 88 03/28/17 09:09 Respiratory Rate 18 03/28/17 09:09 Blood Pressure 130/79 03/28/17 09:09 O2 Sat by Pulse Oximetry 90 03/28/17 09:09 Temperature 98.3 F 03/28/17 09:09 Pulse Rate 75 03/28/17 12:23 Respiratory Rate 76 03/28/17 12:23 Blood Pressure 123/76 03/28/17 12:23 O2 Sat by Pulse Oximetry 98 03/28/17 12:23 Oxygen Delivery Oxygen Delivery Room Air Shortness of Breath/Dyspnea - Differential Diagnosis Likely: acute exacerbation of chronic obstructive airways disease, congestive heart failure, pneumonia, pulmonary embolism, pneumothorax, arrhythmia - Lab Data Lab results reviewed: Yes I reviewed the patient's lab results. Result diagrams: 03/28/17 09:31 03/28/17 09:31 Lab Results 03/28/17 03/28/17 03/28/17 Range/Units 09:31 09:31 09:31 WBC 9.8 (4.3-11.1) K/mcL RBC 4.57 (4.19-5.50) M/mcL Hgb 12.8 L (12.9-16.9) g/dL Hct 39.8 (37.5-50.1) % MCV 87.1 (83.0-100.0) fL MCH 28.0 (28.0-33.3) pg MCHC 32.2 (31.6-35.5) g/dL RDW 13.2 (11.5-14.5) % Plt Count 249 (140-400) K/mcL MPV 9.9 (9.4-12.4) fL Immature Gran % 0.5 (0-4) % Seg Neutrophils % 74.3 % Lymphocytes % 14.7 % Monocytes % 8.3 % Eosinophils % 1.9 % Basophils % 0.3 % Neutrophils # 7.3 (1.6-8.9) K/mcL Lymphocytes # 1.4 (0.6-4.6) K/mcL Monocytes # 0.8 (0.0-1.3) K/mcL Eosinophils # 0.2 (0.0-0.6) K/mcL Basophils # 0.0 (0.0-0.2) K/mcL Sodium 142 (136-145) mEq/L Potassium 4.2 (3.5-4.5) mEq/L Chloride 89 L (98-109) mEq/L Carbon Dioxide 44 H* (19-29) mEq/L BUN 10 (8-26) mg/dL Creatinine 0.73 (0.72-1.25) mg/dL Est GFR ( Amer) > 60 (> 60) Est GFR (Non-Af Amer) > 60 (> 60) BUN/Creatinine Ratio 14 (6-26) Glucose 209 H (70-99) mg/dL Calculated Osmolality 299 (280-300) Lactic Acid 1.1 (0.5-2.2) mmol/L Calcium 9.4 (8.6-10.8) mg/dL Total Bilirubin 0.4 (0.2-1.2) mg/dL AST 26 (5-34) Units/L ALT 18 (0-55) Units/L Alkaline Phosphatase 116 (38-126) Units/L Troponin I (0-0.03) ng/mL B-Natriuretic Peptide (0-100) pg/mL Serum Total Protein 7.3 (6.0-8.3) g/dL Albumin 3.1 L (3.5-5.0) g/dL Globulin 4.2 H (2.4-3.5) g/dL Albumin/Globulin Ratio 0.7 L (1.1-2.2) Lipase 7 L (8-78) Units/L Urine Color (Yellow) Urine Clarity (Clear) Urine pH (5.0-8.0) pH Units Ur Specific Estill (1.010-1.025) Urine Protein (Neg-Trace) mg/dL Urine Glucose (UA) (Normal) mg/dL Urine Ketones (Negative) mg/dL Urine Blood (Negative) Urine Nitrite (Negative) Urine Bilirubin (Negative) Urine Urobilinogen (Normal) mg/dL Ur Leukocyte Esterase (Negative) Urine Microscopic WBC (0-3) per hpf Ur Squamous Epith Cells (None-Few) per lpf Urine Bacteria (None-Few) per hpf Urine Mucus (Few) Ur Culture Indicated? (NO) 03/28/17 03/28/17 03/28/17 Range/Units 09:31 09:31 10:21 WBC (4.3-11.1) K/mcL RBC (4.19-5.50) M/mcL Hgb (12.9-16.9) g/dL Hct (37.5-50.1) % MCV (83.0-100.0) fL MCH (28.0-33.3) pg MCHC (31.6-35.5) g/dL RDW (11.5-14.5) % Plt Count (140-400) K/mcL MPV (9.4-12.4) fL Immature Gran % (0-4) % Seg Neutrophils % % Lymphocytes % % Monocytes % % Eosinophils % % Basophils % % Neutrophils # (1.6-8.9) K/mcL Lymphocytes # (0.6-4.6) K/mcL Monocytes # (0.0-1.3) K/mcL Eosinophils # (0.0-0.6) K/mcL Basophils # (0.0-0.2) K/mcL Sodium (136-145) mEq/L Potassium (3.5-4.5) mEq/L Chloride (98-109) mEq/L Carbon Dioxide (19-29) mEq/L BUN (8-26) mg/dL Creatinine (0.72-1.25) mg/dL Est GFR ( Amer) (> 60) Est GFR (Non-Af Amer) (> 60) BUN/Creatinine Ratio (6-26) Glucose (70-99) mg/dL Calculated Osmolality (280-300) Lactic Acid (0.5-2.2) mmol/L Calcium (8.6-10.8) mg/dL Total Bilirubin (0.2-1.2) mg/dL AST (5-34) Units/L ALT (0-55) Units/L Alkaline Phosphatase (38-126) Units/L Troponin I 0.00 (0-0.03) ng/mL B-Natriuretic Peptide 116 H (0-100) pg/mL Serum Total Protein (6.0-8.3) g/dL Albumin (3.5-5.0) g/dL Globulin (2.4-3.5) g/dL Albumin/Globulin Ratio (1.1-2.2) Lipase (8-78) Units/L Urine Color Yellow (Yellow) Urine Clarity Clear (Clear) Urine pH 8.5 H (5.0-8.0) pH Units Ur Specific Estill 1.015 (1.010-1.025) Urine Protein Negative (Neg-Trace) mg/dL Urine Glucose (UA) Normal (Normal) mg/dL Urine Ketones Negative (Negative) mg/dL Urine Blood Negative (Negative) Urine Nitrite Negative (Negative) Urine Bilirubin Negative (Negative) Urine Urobilinogen >=8.0 H (Normal) mg/dL Ur Leukocyte Esterase Trace H (Negative) Urine Microscopic WBC 5-15 H (0-3) per hpf Ur Squamous Epith Cells Few (None-Few) per lpf Urine Bacteria Few (None-Few) per hpf Urine Mucus Few (Few) Ur Culture Indicated? YES A (NO) - Radiology Data Radiology results reviewed: Yes I reviewed the patient's radiology results. Impressions Chest X-Ray 03/28/17 09:13 IMPRESSION: Stable chronic pleural-parenchymal changes, no acute process demonstrated D/ / Timbo Correa MD / Timbo Correa MD Interpreting Provider: Timbo Correa MD Chest CTA 03/28/17 11:19 IMPRESSION: 1. Limited study as discussed. There are no large central pulmonary emboli. Peripheral pulmonary emboli cannot be excluded 2. Stable CT appearance of the chest with large right pleural effusion, stable parenchymal opacities in the right lung, and postoperative changes on the left D/ / Timbo Correa MD / Timbo Correa MD Interpreting Provider: Timbo Correa MD - EKG Data EKG attestation: Yes I reviewed and interpreted this EKG. EKG results narrative: Sinus tachycardia, rate of 108, right ventricular hypertrophy, nonspecific ST-T changes. Rhythm strip shows sinus tachycardia with rate 108, [place] interval 140 ms , QRS of 84 ms with no other ectopy as interpreted by me. This is compared to a tracing dated 12/30/16, no significant change other than the sinus tachycardia.
[2017-03-28 09:43] LABS: Basophils % 0.3 %; Eosinophils # 0.2 K/mcL (0.0-0.6); Eosinophils % 1.9 %; Hematocrit 39.8 % (37.5-50.1); Hemoglobin 12.8 g/dL (12.9-16.9); Immature Granulocytes % 0.5 % (0-4); Lymphocytes # 1.4 K/mcL (0.6-4.6); Lymphocytes % 14.7 %; Mean Corpuscular HGB Conc 32.2 g/dL (31.6-35.5); Mean Corpuscular Volume 87.1 fL (83.0-100.0); Mean Platelet Volume 9.9 fL (9.4-12.4); Monocytes # 0.8 K/mcL (0.0-1.3); Monocytes % 8.3 %; Neutrophils # 7.3 K/mcL (1.6-8.9); Platelet Count 249 K/mcL (140-400); Red Blood Count 4.57 M/mcL (4.19-5.50); Red Cell Distribution Width 13.2 % (11.5-14.5); Segmented Neutrophils % 74.3 %
[2017-03-28 10:01] LABS: Alanine Aminotransferase 18 Units/L (0-55); Albumin 3.1 g/dL (3.5-5.0); Albumin/Globulin Ratio 0.7 (1.1-2.2); Alkaline Phosphatase 116 Units/L (38-126); Aspartate Amino Transferase 26 Units/L (5-34); BUN/Creatinine Ratio 14 (6-26); Bilirubin,Total 0.4 mg/dL (0.2-1.2); Blood Urea Nitrogen 10 mg/dL (8-26); Calcium 9.4 mg/dL (8.6-10.8); Chloride 89 mEq/L (98-109); Globulin 4.2 g/dL (2.4-3.5); Glucose 209 mg/dL (70-99); Lipase 7 Units/L (8-78); Osmolality,Calculated 299 (280-300); Potassium 4.2 mEq/L (3.5-4.5); Sodium 142 mEq/L (136-145); Total Protein 7.3 g/dL (6.0-8.3); eGFR For African Americans > 60 (> 60); eGFR For Non-African Americans > 60 (> 60)
[2017-03-28 10:22] LABS: Carbon Dioxide 44 mEq/L (19-29)
[2017-03-28 10:27] LABS: Bilirubin,Urine Negative (Negative); Blood,Urine Negative (Negative); Clarity,Urine Clear (Clear); Color,Urine Yellow (Yellow); Glucose,Urine (UA) Normal (Normal); Ketones,Urine Negative (Negative); Leukocyte Esterase,Urine Trace (Negative); Nitrite,Urine Negative (Negative); PH,Urine 8.5 pH Units (5.0-8.0); Protein,Urine Negative (Neg-Trace); Specific Gravity,Urine 1.015 (1.010-1.025); Urobilinogen,Urine >=8.0 mg/dL (Normal)
[2017-03-28 10:43] LABS: Bacteria,Urine Few per hpf (None-Few); Mucus,Urine Few (Few); Squamous Epithelial Cell,Urine Few per lpf (None-Few)
[2017-03-28] MEDS ORDERED: traZODone 50 MG TABLET PO PRN ×2 (15:16→15:32)
[2017-03-28] MEDS ORDERED: methylPREDNISolone 125 MG/2 ML VIAL IVP SCH (15:16)
[2017-03-28] MEDS ORDERED: Albuterol 2.5 MG/3 ML NEBULIZER IH PRN ×2 (15:16→16:00)
[2017-03-28] MEDS ORDERED: Ibuprofen 600 MG TABLET PO PRN ×2 (15:16→15:32)
[2017-03-28] MEDS ORDERED: Naloxone 0.4 MG/ML INJ IVP PRN (15:32)
--- NOTE | 2017-03-28 15:41 | Electrocardiograph Report ---
[address] [address] Test Date: 2017-03-28 Pat Name: Dru Tamez Department: [id number] Room: [facility] Gender: M Envelope Maker: [id number] : 1955 Requested By: Huang Crawley Order Number: [id number] Reading MD: Willie Dsouza Measurements Intervals [place] Rate: 108 P: 72 CT: 140 QRS: 136 QRSD: 84 T: 57 QT: 340 QTc: 403 Interpretive Statements SINUS TACHYCARDIA POSSIBLE RIGHT VENTRICULAR HYPERTROPHY Electronically Signed On 03-28-2017 15:39:39 EST by Willie Dsouza
[2017-03-28] MEDS ORDERED: traMADol 50 MG TABLET PO SCH (17:00)
[2017-03-28] MEDS ORDERED: Furosemide 40 MG TABLET PO SCH (17:00)
[2017-03-28] MEDS: Furosemide 40 MG TABLET PO SCH (17:15)
[2017-03-28] MEDS: traMADol 50 MG TABLET PO SCH ×2 (17:15→20:34)
[2017-03-28] MEDS: methylPREDNISolone 125 MG/2 ML VIAL IVP SCH (17:17)
[2017-03-28] MEDS ORDERED: Insulin DETEMIR 100 UNIT/ML X5UNITS SQ SCH ×2 (21:00)
[2017-03-28] MEDS ORDERED: Sennosides 8.6 MG TABLET PO SCH ×2 (21:00)
[2017-03-28] MEDS ORDERED: NON-FORMULARY MEDICATION 1 EACH EACH (Insulin Glargine [Lantus] 12 UNIT) SQ SCH (21:00)
[2017-03-28] MEDS ORDERED: Famotidine 20 MG TABLET PO SCH ×2 (21:00)
[2017-03-28] MEDS ORDERED: Insulin LISPRO 300 UNITS/3 ML VIAL SQ SCH (22:00)
[2017-03-29] MEDS: methylPREDNISolone 125 MG/2 ML VIAL IVP SCH ×2 (00:54→10:20)
[2017-03-29 07:00] VITALS: BP 118/68
[2017-03-29] MEDS ORDERED: Insulin LISPRO 300 UNITS/3 ML VIAL SQ SCH (07:30)
[2017-03-29] MEDS: Furosemide 40 MG TABLET PO SCH (08:10)
[2017-03-29] MEDS: traMADol 50 MG TABLET PO SCH (08:10)
--- NOTE | 2017-03-29 11:38 | Internal Med History&Physical ---
Date of Encounter: 03/29/17 Time of Encounter: 11:05 Assessment and Plan (1) COPD (chronic obstructive pulmonary disease) Current visit: No Status: Acute He was started on Rocephin and Solu-Medrol with nebulizer treatments through emergency room. Qualifiers: COPD type: COPD with acute exacerbation Qualified Code(s): J44.1 - Chronic obstructive pulmonary disease with (acute) exacerbation (2) UTI (urinary tract infection) Current visit: Yes Status: Acute He was started on Rocephin through emergency room. Qualifiers: Urinary tract infection type: acute cystitis Hematuria presence: without hematuria Qualified Code(s): N30.00 - Acute cystitis without hematuria Internal Medicine - H&P: HPI Chief complaint: Dyspnea Admitted From: Home Plans for Post Hospital Care: Home History of present illness: Mr. Tamez is a 61 year old male who came to emergency room stating he had increased dyspnea over the last 3 days. There was minimal cough and no chest pain. He was evaluated in emergency room and felt to have exacerbation of COPD and possible UTI. He was admitted to [facility] for ongoing care needs. Chest CT in the emergency room showed stable appearance compared to 10/30/2016 CT with large right pleural effusion. He has had 2 thoracentesis procedures the past for right pleural effusion but does not know definite results but believes he was told there was no malignancy found in cytology fluid. He has history of lung cancer but does not know the cell type. He reported he had chemotherapy and radiation therapy at [facility]. His family believes he was seen approximately 2 months ago by oncologists. He smoked from age [age] up to 4 packs per day. He has a diagnosis of COPD and wears oxygen 29/11. Past Med Surg Social Fam HX - Past Medical History Medical history: cancer, CHF, COPD, diabetes, GERD, hyperlipidemia, hypertension , other Psychiatric history: anxiety, depression - Past Surgical History Surgical History: sinus surgery, other - Social History Smoking Status: Former smoker Smokeless Tobacco Status: No Alcohol use: none Drug use: none - Family History Father Adopted: No Family Member Ethnicity: Non- Living Status: Hx Family Cardiac Disorders: No Hx Family Respiratory Disorders: Yes Hx Family Cancer: No Hx Family GI Disorders: No Hx Family Endocrine Disorder: No Hx Family Neuromuscular Disorders: No Hx Family Neurologic Disorders: No Hx Family HEENT Disorders: No Hx Family Autoimmune Disorders: No Internal Medicine - H&P: Meds Albuterol Neb [Proventil Neb] 2.5 mg IH Q4HR PRN 08/28/15 [History] Albuterol Sulfate [Albuterol Inhaler] 2 puff IH Q4H PRN 08/28/15 [History] Fluticasone/Salmeterol [Advair 100-50 Diskus] 1 puff PO BID 08/28/15 [History] Lovastatin 40 mg PO DAILY 08/28/15 [History] Omeprazole [PriLOSEC] 20 mg PO DAILY 08/28/15 [History] Tiotropium [Spiriva] 18 mcg IH DAILY 08/28/15 [History] traZODone [TraZODone] 50 mg PO HS PRN 08/28/15 [History] Insulin Glargine [Lantus] 12 unit SQ HS 09/29/15 [History] Ibuprofen [Motrin] 600 mg PO Q8HR PRN 12/02/15 [History] Famotidine [Heartburn Prevention] 20 mg PO HS 05/24/16 [History] Furosemide [Lasix] 80 mg PO BID 05/24/16 [History] Potassium Chloride [K-Tab ER] 20 meq PO DAILY 05/24/16 [History] Sennosides [Senna] 17.2 mg PO HS 05/25/16 [History] Albuterol Sulfate [Albuterol Inhaler] 2 puff IH Q6HR PRN #1 hfa.aer.ad 06/27/16 [Rx] Earl/Poly/Jaylan OINT [Triple Antibiotic Ointment] 1 appl TP TID #30 tube 11/15/16 [ Rx] Tramadol HCl [Ultram] 50 mg PO QID #8 tab 11/15/16 [Rx] Azithromycin [Azithromycin 6-Tab Pack] 250 mg PO PER PKG DI #6 tab 12/30/16 [Rx] 3 Allergy/AdvReac Type Severity Reaction Status Date / Time No Known Allergies Allergy Verified 10/11/16 07:33 All Systems PM: A 10-system review of systems was performed and is negative for pertinent findings except as documented above in the HPI. Review of systems: Review of systems from his October 2016 [facility] hospitalization were reviewed and revised as below Gen.: His weight has increased from 81.647 kg at the February 2015 [facility] hospitalization to admission weight of 100.471 kg on admission now Cardiovascular: He denies MD hypertension heart failure angina DVT or pulmonary embolus Respiratory: As per history of present illness GI: He has no known disorder of his liver gallbladder or exocrine pancreas : There is no known hematuria dysuria or kidney stones Neurologic: No history of large distribution strokes or seizures. He does have severe hearing loss Endocrine: He has been diagnosed with DM 2 approximately 2014 with his most recent hemoglobin A1c being 8.3% on 10/13/2016. He has hyperlipidemia. TSH was suppressed at 0.277 on 08/30/2015 but was normal at 1.374 on 10/13/2016. Hematology/oncology: There is no known blood disorders. He had lung cancer as per history of present illness. There are no other known malignancies. Psychiatric: He has major depressive disorder and panic attacks. [place] skeletal: He has DJD but no known gout or osteoporosis - Constitutional Vitals: Temp Pulse Resp BP Pulse Ox 98.1 F 111 16 118/68 93 03/29/17 06:59 03/29/17 06:59 03/29/17 06:59 03/29/17 06:59 03/29/17 06:59 Exam: Gen.: He is well-developed overweight male who appears in no severe distress HEENT: Head is atraumatic and normocephalic. Eyes: EOMI. There is no scleral icterus. Mouth: Mucosa is moist. Neck: Supple and nontender. There is no thyromegaly or adenopathy noted. Heart: Regular without murmurs gallops or ectopics Lungs: No wheezes or crackles are heard. Abdomen: Soft and nontender. No masses or guarding are noted. Extremities: There is no cyanosis edema or clubbing noted. Dorsalis pedis and posterior tibial pulses are trace palpable bilaterally. Neurologic: Mental status: He is able to answer a few questions but is extremely hard of hearing. Cranial nerves: Smile is symmetric. Forehead wrinkles bilaterally. Tongue protrudes midline. EOMI. Motor: There is no pronator drift. Cerebellar: Finger to nose is intact bilaterally. Skin: Warm and dry Internal Med - H&P Results - Labs CBC & Chem 7: 03/28/17 09:31 03/28/17 09:31
--- NOTE | 2017-03-29 11:57 | Discharge Summary ---
Date of Encounter: 03/29/17 Time of Encounter: 11:05 - Discharge Diagnosis (1) COPD (chronic obstructive pulmonary disease) Priority: Primary Status: Acute Qualifiers: COPD type: COPD with acute exacerbation Qualified Code(s): J44.1 - Chronic obstructive pulmonary disease with (acute) exacerbation (2) UTI (urinary tract infection) Priority: Secondary Status: Acute Qualifiers: Urinary tract infection type: acute cystitis Hematuria presence: without hematuria Qualified Code(s): N30.00 - Acute cystitis without hematuria - Discharge Medications Prescriptions: Lactobacillus [Culturelle] 1 each PO BID #6 cap.sprink levoFLOXacin [Levaquin] 500 mg PO DAILY #3 tablet Home Medications: Albuterol Neb [Proventil Neb] 2.5 mg IH Q4HR PRN 08/28/15 [History] Albuterol Sulfate [Albuterol Inhaler] 2 puff IH Q4H PRN 08/28/15 [History] Fluticasone/Salmeterol [Advair 100-50 Diskus] 1 puff PO BID 08/28/15 [History] Lovastatin 40 mg PO DAILY 08/28/15 [History] Omeprazole [PriLOSEC] 20 mg PO DAILY 08/28/15 [History] Tiotropium [Spiriva] 18 mcg IH DAILY 08/28/15 [History] traZODone [TraZODone] 50 mg PO HS PRN 08/28/15 [History] Insulin Glargine [Lantus] 12 unit SQ HS 09/29/15 [History] Ibuprofen [Motrin] 600 mg PO Q8HR PRN 12/02/15 [History] Famotidine [Heartburn Prevention] 20 mg PO HS 05/24/16 [History] Furosemide [Lasix] 80 mg PO BID 05/24/16 [History] Potassium Chloride [K-Tab ER] 20 meq PO DAILY 05/24/16 [History] Sennosides [Senna] 17.2 mg PO HS 05/25/16 [History] Albuterol Sulfate [Albuterol Inhaler] 2 puff IH Q6HR PRN #1 hfa.aer.ad 06/27/16 [Rx] Earl/Poly/Jaylan OINT [Triple Antibiotic Ointment] 1 appl TP TID #30 tube 11/15/16 [ Rx] Tramadol HCl [Ultram] 50 mg PO QID #8 tab 11/15/16 [Rx] Azithromycin [Azithromycin 6-Tab Pack] 250 mg PO PER PKG DI #6 tab 12/30/16 [Rx] Lactobacillus [Culturelle] 1 each PO BID #6 cap.sprink 03/29/17 [Rx] levoFLOXacin [Levaquin] 500 mg PO DAILY #3 tablet 03/29/17 [Rx] Allergies/Adverse Reactions: 3 Allergy/AdvReac Type Severity Reaction Status Date / Time No Known Allergies Allergy Verified 10/11/16 07:33 Date of admission: 03/28/17 13:59 Primary care physician: Rowdy Tinajero DO - Patient Status Disposition: Home, Self-Care Condition: Good Overall status at discharge: patient is progressing back to baseline - Discharge Instructions Follow Up With: Rowdy Tinajero DO [Primary Care Provider] - 1 week - Diet and Activity Activity: resume usual activities as tolerated Diet: advance to your usual diet Hospital course: Mr. Tamez is a 61 year old male who came to emergency room stating he had increased dyspnea over the last 3 days. There was minimal cough and no chest pain. He was evaluated in emergency room and felt to have exacerbation of COPD and possible UTI. He was admitted to [facility] floor for ongoing care needs. Initial orders were written by the emergency room physician. I saw him on March 29 and performed a history physical and discharge. He was started on Rocephin empirically through emergency room. Solu-Medrol was also given. When I saw him I felt he was likely near his baseline. I reviewed his lab work showing normal WBC without left shift on initial CBC. Reviewed his chest CT report showing stability since the October 2016 study. His vital signs remained stable during hospitalization. Urine culture was ordered but results were not back at time of discharge. He will discharged with Levaquin and lactobacillus for 3 additional days to treat UTI and possible pneumonia. I encouraged the patient and his family to obtain more information about his lung cancer status at his next visit with oncologist. They do not know the cell type or remission status etc. They are uncertain if previous thoracentesis showed malignant pleural effusion. He will follow with his PCP Dr. Tinajero within 1 week. - Time Spent with Patient Total time spent providing and/or coordinating discharge services: - Constitutional Vitals: Temp Pulse Resp BP Pulse Ox 98.1 F 111 16 118/68 93 03/29/17 06:59 03/29/17 06:59 03/29/17 06:59 03/29/17 06:59 03/29/17 06:59
== END 2017-03-29 13:05 | disposition home or self-care (01) ==
LOC: INPPIK 09:06 → EMEROOPIK 09:06 → INPPIK 15:05
PROVIDERS: ADMIT Internal Medicine; ATTEND Internal Medicine

== ENCOUNTER 2017-05-05 03:21 | Observation (INO) ==
[2017-05-05] MEDS ORDERED: Ipratropium/Albuterol Neb 3 ML IH ONE (03:46)
[2017-05-05] MEDS ORDERED: Albuterol 2.5 MG/3 ML NEBULIZER IH ONE (03:46)
[2017-05-05] MEDS ORDERED: methylPREDNISolone 125 MG/2 ML VIAL IVP ONE (03:46)
--- NOTE | 2017-05-05 03:50 | Emergency Department Note ---
Disposition Clinical Impression: COPD exacerbation Pneumonia Qualifiers: Pneumonia type: due to unspecified organism Laterality: bilateral Lung location : lower lobe of lung Qualified Code(s): J18.9 - Pneumonia, unspecified organism Disposition: Admitted As Inpatient Condition: Good Referrals: Rowdy Tinajero DO [Primary Care Provider] - Forms: ED Satisfaction Letter Time of Disposition: 05:38 SOB HPI - General Chief Complaint: ED Shortness of Breath/Dyspnea Stated Complaint: Dyspnea onset 2 weeks Time Seen by Provider: 05/05/17 03:45 Source: patient, EMS Mode of arrival: EMS Limitations: no limitations Nursing Notes Reviewed: Yes Vital Signs Reviewed: Yes - History of Present Illness 61-year-old male who presents with cough and difficulty breathing for 3 weeks. He states got gradually worse. He states his worse at night. He has sharp pain in his chest when he coughs when he breathes deep. His cough is nonproductive. Pt Subjective Complaint: shortness of breath, cough Onset (ago): week(s) (3) Context: recent illness Severity: severe Consistency/Duration: constant Improves with: oxygen, bronchodilators Worsens with: lying flat, exertion, coughing Known history of: COPD Associated symptoms: Reports: denies other symptoms Treatment prior to arrival: oxygen, bronchodilator Cough present: Yes Cough Description: Involuntary Cough Frequency: Intermittent Sputum production: No Sputum Amount: None - Related Data Home oxygen amount: 3 liters Home Medications Medication Instructions Recorded Confirmed Albuterol Neb [Proventil Neb] 2.5 mg IH Q4HR PRN 08/28/15 03/28/17 Albuterol Sulfate [Albuterol 2 puff IH Q4H PRN 08/28/15 03/28/17 Inhaler] Fluticasone/Salmeterol [Advair 1 puff PO BID 08/28/15 03/28/17 100-50 Diskus] Lovastatin 40 mg PO DAILY 08/28/15 03/28/17 Omeprazole [PriLOSEC] 20 mg PO DAILY 08/28/15 03/28/17 Tiotropium [Spiriva] 18 mcg IH DAILY 08/28/15 03/28/17 traZODone [TraZODone] 50 mg PO HS PRN 08/28/15 03/28/17 Insulin Glargine [Lantus] 12 unit SQ HS 09/29/15 03/28/17 Ibuprofen [Motrin] 600 mg PO Q8HR PRN 12/02/15 03/28/17 Famotidine [Heartburn Prevention] 20 mg PO HS 05/24/16 03/28/17 Furosemide [Lasix] 80 mg PO BID 05/24/16 03/28/17 Potassium Chloride [K-Tab ER] 20 meq PO DAILY 05/24/16 03/28/17 Sennosides [Senna] 17.2 mg PO HS 05/25/16 03/28/17 Previous Rx's Medication Instructions Recorded Albuterol Sulfate [Albuterol 2 puff IH Q6HR PRN #1 hfa.aer.ad 06/27/16 Inhaler] Earl/Poly/Jaylan OINT [Triple 1 appl TP TID #30 tube 11/15/16 Antibiotic Ointment] Tramadol HCl [Ultram] 50 mg PO QID #8 tab 11/15/16 Azithromycin [Azithromycin 6-Tab 250 mg PO PER PKG DI #6 tab 12/30/16 Pack] Lactobacillus [Culturelle] 1 each PO BID #6 cap.sprink 03/29/17 levoFLOXacin [Levaquin] 500 mg PO DAILY #3 tablet 03/29/17 Allergies Allergy/AdvReac Type Severity Reaction Status Date / Time No Known Allergies Allergy Verified 10/11/16 07:33 All systems ED: reviewed and negative except as stated. Constitutional: Denies: fever, chills Eyes: Denies: eye discharge ENT ED: Denies: ear pain, throat pain Cardiovascular: Reports: chest pain Respiratory: Reports: cough, dyspnea, wheezes. Denies: sputum production Gastrointestinal: Denies: abdominal pain, nausea, vomiting Musculoskeletal: Denies: back pain Integumentary: Denies: rash Neurological: Denies: headache, weakness, numbness, paresthesias Psychiatric: Reports: anxiety Past Medical History - Past Medical History Medical history: Reports: cancer, CHF, COPD, diabetes, GERD, hyperlipidemia, hypertension, other Surgical history: Reports: sinus surgery, other Psychiatric history: Reports: anxiety, depression - Social History Smoking Status: Former smoker Smokeless Tobacco Status: No Alcohol use: Reports: none Drug use: Reports: none Physical Exam - General Limitations: no limitations General appearance: alert, in no apparent distress - Head Head exam: atraumatic, normocephalic - Eye Eye exam: Present: PERRL, EOMI. Absent: scleral icterus, conjunctival injection - ENT ENT exam: normal oropharynx, mucous membranes moist, TM's normal bilaterally - Neck Neck exam: Present: normal inspection, full ROM, trachea midline. Absent: tenderness, lymphadenopathy - Respiratory Respiratory exam: Present: respiratory distress, wheezes (Moderate lateral expiratory diffuse), accessory muscle use, prolonged expiratory phase - Cardiovascular Cardiovascular exam: Present: normal rhythm, tachycardia. Absent: systolic murmur, diastolic murmur, gallop - Abdominal Exam Abdominal exam: Present: soft, Non-Tender, normal bowel sounds. Absent: distention, organomegaly, mass - Extremities Exam Extremities exam: Present: normal inspection, full ROM, normal capillary refill. Absent: tenderness, pedal edema, calf tenderness - Neurological Exam Neurological exam: Present: alert, oriented X3. Absent: motor sensory deficit - Psychiatric Psychiatric exam: Present: agitated, anxious - Skin Skin exam: Present: warm, dry, intact, normal color. Absent: cyanosis, diaphoresis Course - Reevaluation(s) Reevaluation #1: Moving air better, still has bronchospasm. He is tachycardic at 156. Discussed with Dr. Roberts. He accepts patient for admission. Time: 05:37 Vital Signs Temperature 97.5 F L 05/05/17 03:24 Pulse Rate 121 05/05/17 03:24 Respiratory Rate 20 05/05/17 03:24 Blood Pressure 115/83 05/05/17 03:24 O2 Sat by Pulse Oximetry 96 05/05/17 03:24 Temperature 97.5 F L 05/05/17 03:24 Pulse Rate 140 05/05/17 05:25 Respiratory Rate 16 05/05/17 05:25 Blood Pressure 133/95 05/05/17 05:25 O2 Sat by Pulse Oximetry 94 05/05/17 05:25 Oxygen Delivery Oxygen Delivery Nasal Cannula Shortness of Breath/Dyspnea - [facility] Narrative Medical decision making narrative: Clinically he has COPD exacerbation. He has some infiltrate changes which are consistent with pneumonia or atelectasis. He was given IV Rocephin and azithromycin. He has been given a total of 6 hand-held nebulizers and IV Solu- Medrol. He is moving air better, but he has persistent tachycardia and bronchospasm. He remained to [facility]. He will be admitted for further treatment. - Differential Diagnosis Likely: acute exacerbation of chronic obstructive airways disease, congestive heart failure, pneumonia, asthma with exacerbation, pulmonary embolism, pneumothorax, arrhythmia - Lab Data Result diagrams: 05/05/17 03:45 05/05/17 03:45 Lab Results 05/05/17 05/05/17 05/05/17 Range/Units 03:45 03:45 03:45 WBC 10.3 (4.3-11.1) K/mcL RBC 4.58 (4.19-5.50) M/mcL Hgb 12.5 L (12.9-16.9) g/dL Hct 39.9 (37.5-50.1) % MCV 87.1 (83.0-100.0) fL MCH 27.3 L (28.0-33.3) pg MCHC 31.3 L (31.6-35.5) g/dL RDW 14.0 (11.5-14.5) % Plt Count 247 (140-400) K/mcL MPV 10.4 (9.4-12.4) fL Immature Gran % 0.5 (0-4) % Seg Neutrophils % 74.9 % Lymphocytes % 10.4 % Monocytes % 11.7 % Eosinophils % 2.1 % Basophils % 0.4 % Neutrophils # 7.7 (1.6-8.9) K/mcL Lymphocytes # 1.1 (0.6-4.6) K/mcL Monocytes # 1.2 (0.0-1.3) K/mcL Eosinophils # 0.2 (0.0-0.6) K/mcL Basophils # 0.0 (0.0-0.2) K/mcL Sodium 142 (136-145) mEq/L Potassium 3.4 L (3.5-4.5) mEq/L Chloride 93 L (98-109) mEq/L Carbon Dioxide 37 H (19-29) mEq/L BUN 11 (8-26) mg/dL Creatinine 0.77 (0.72-1.25) mg/dL Est GFR ( Amer) > 60 (> 60) Est GFR (Non-Af Amer) > 60 (> 60) BUN/Creatinine Ratio 14 (6-26) Glucose 172 H (70-99) mg/dL Calculated Osmolality 297 (280-300) Lactic Acid 1.0 (0.5-2.2) mmol/L Calcium 9.4 (8.6-10.8) mg/dL Total Bilirubin 0.6 (0.2-1.2) mg/dL AST 25 (5-34) Units/L ALT 30 (0-55) Units/L Alkaline Phosphatase 107 (38-126) Units/L Troponin I (0-0.03) ng/mL B-Natriuretic Peptide (0-100) pg/mL Serum Total Protein 7.1 (6.0-8.3) g/dL Albumin 3.2 L (3.5-5.0) g/dL Globulin 3.9 H (2.4-3.5) g/dL Albumin/Globulin Ratio 0.8 L (1.1-2.2) 05/05/17 05/05/17 Range/Units 03:45 03:45 WBC (4.3-11.1) K/mcL RBC (4.19-5.50) M/mcL Hgb (12.9-16.9) g/dL Hct (37.5-50.1) % MCV (83.0-100.0) fL MCH (28.0-33.3) pg MCHC (31.6-35.5) g/dL RDW (11.5-14.5) % Plt Count (140-400) K/mcL MPV (9.4-12.4) fL Immature Gran % (0-4) % Seg Neutrophils % % Lymphocytes % % Monocytes % % Eosinophils % % Basophils % % Neutrophils # (1.6-8.9) K/mcL Lymphocytes # (0.6-4.6) K/mcL Monocytes # (0.0-1.3) K/mcL Eosinophils # (0.0-0.6) K/mcL Basophils # (0.0-0.2) K/mcL Sodium (136-145) mEq/L Potassium (3.5-4.5) mEq/L Chloride (98-109) mEq/L Carbon Dioxide (19-29) mEq/L BUN (8-26) mg/dL Creatinine (0.72-1.25) mg/dL Est GFR ( Amer) (> 60) Est GFR (Non-Af Amer) (> 60) BUN/Creatinine Ratio (6-26) Glucose (70-99) mg/dL Calculated Osmolality (280-300) Lactic Acid (0.5-2.2) mmol/L Calcium (8.6-10.8) mg/dL Total Bilirubin (0.2-1.2) mg/dL AST (5-34) Units/L ALT (0-55) Units/L Alkaline Phosphatase (38-126) Units/L Troponin I 0.01 (0-0.03) ng/mL B-Natriuretic Peptide 35 (0-100) pg/mL Serum Total Protein (6.0-8.3) g/dL Albumin (3.5-5.0) g/dL Globulin (2.4-3.5) g/dL Albumin/Globulin Ratio (1.1-2.2)
[2017-05-05 03:52] LABS: Basophils % 0.4 %; Eosinophils # 0.2 K/mcL (0.0-0.6); Eosinophils % 2.1 %; Hematocrit 39.9 % (37.5-50.1); Hemoglobin 12.5 g/dL (12.9-16.9); Immature Granulocytes % 0.5 % (0-4); Lymphocytes # 1.1 K/mcL (0.6-4.6); Lymphocytes % 10.4 %; Mean Corpuscular HGB Conc 31.3 g/dL (31.6-35.5); Mean Corpuscular Hemoglobin 27.3 pg (28.0-33.3); Mean Corpuscular Volume 87.1 fL (83.0-100.0); Mean Platelet Volume 10.4 fL (9.4-12.4); Monocytes # 1.2 K/mcL (0.0-1.3); Monocytes % 11.7 %; Neutrophils # 7.7 K/mcL (1.6-8.9); Platelet Count 247 K/mcL (140-400); Red Blood Count 4.58 M/mcL (4.19-5.50); Segmented Neutrophils % 74.9 %
[2017-05-05 04:10] LABS: Alanine Aminotransferase 30 Units/L (0-55); Albumin 3.2 g/dL (3.5-5.0); Albumin/Globulin Ratio 0.8 (1.1-2.2); Alkaline Phosphatase 107 Units/L (38-126); Aspartate Amino Transferase 25 Units/L (5-34); BUN/Creatinine Ratio 14 (6-26); Bilirubin,Total 0.6 mg/dL (0.2-1.2); Blood Urea Nitrogen 11 mg/dL (8-26); Calcium 9.4 mg/dL (8.6-10.8); Carbon Dioxide 37 mEq/L (19-29); Chloride 93 mEq/L (98-109); Globulin 3.9 g/dL (2.4-3.5); Glucose 172 mg/dL (70-99); Osmolality,Calculated 297 (280-300); Potassium 3.4 mEq/L (3.5-4.5); Sodium 142 mEq/L (136-145); Total Protein 7.1 g/dL (6.0-8.3); eGFR For African Americans > 60 (> 60); eGFR For Non-African Americans > 60 (> 60)
[2017-05-05] MEDS ORDERED: Ipratropium/Albuterol Neb 3 ML IH STA (04:58)
[2017-05-05] MEDS ORDERED: Albuterol 2.5 MG/3 ML NEBULIZER IH STA (04:58)
[2017-05-05] MEDS ORDERED: Azithromycin 500 MG in D5% in Water 250 ML IVPB ONE ×2 (05:33→06:08)
[2017-05-05] MEDS ORDERED: Ibuprofen 600 MG TABLET PO PRN (06:08)
[2017-05-05] MEDS ORDERED: traZODone 50 MG TABLET PO PRN (06:08)
[2017-05-05] MEDS: Furosemide 40 MG TABLET PO SCH ×2 (09:04→17:28)
[2017-05-05] MEDS: Lactobacillus 1 EACH CAP.SPRINK PO SCH ×2 (09:04→21:40)
[2017-05-05] MEDS: traMADol 50 MG TABLET PO SCH ×4 (09:05→21:40)
[2017-05-05] MEDS: Albuterol 2.5 MG/3 ML NEBULIZER IH PRN ×3 (10:30→22:38)
[2017-05-05] MEDS ORDERED: *HR* Propranolol 1 MG/ML VIAL IVP ONE (14:45)
--- NOTE | 2017-05-05 14:50 | Internal Med History&Physical ---
Date of Encounter: 05/05/17 Time of Encounter: 14:15 Assessment and Plan (1) COPD exacerbation Current visit: Yes Status: Acute He was given Rocephin, Solu-Medrol and Zithromax in the emergency room. We will continue these and monitor progress. (2) Anemia Current visit: Yes Status: Acute We will order anemia testing in a.m. Qualifiers: Anemia type: unspecified type Qualified Code(s): D64.9 - Anemia, unspecified (3) Tachycardia Current visit: No Status: Acute Give IV beta shell to slow rate and further assess. (4) Lung cancer Current visit: No Status: Chronic Cell type unknown. Remission status unknown Qualifiers: Laterality: right Lung location: unspecified part of lung Qualified Code( s): C34.91 - Malignant neoplasm of unspecified part of right bronchus or lung Internal Medicine - H&P: HPI Chief complaint: Dyspnea and cough Admitted From: Emergency Dept Plans for Post Hospital Care: Home History of present illness: Mr. Tamez is a 61 year old male came to emergency room stating had increased dyspnea and cough over the past 2 weeks. The cough is productive of white phlegm. He complains of sore throat and overall weakness. He was evaluated in emergency room and felt to have exacerbation of COPD with possible pneumonia. He was admitted to [facility] floor for ongoing care needs. He was hospitalized at [facility] approximately 5 weeks ago with diagnosis of COPD. He has history of lung cancer but does not know the cell type. He reports having chemotherapy and radiation therapy at [facility]. He was last seen approximately October 2016 by oncologist with next appointment October 2017. He smoked from age [age] up to 4 packs per day. He has a diagnosis of COPD and wears oxygen 24/7. He had chest CT scan done at the March 2017 admission showing stability since October 2016 CT scan with large right pleural effusion. He has had 2 thoracentesis procedures in the past but does not know definite results. He believes he was told there was no malignancy found on fluid cytology. Past Med Surg Social Fam HX - Past Medical History Medical history: cancer, CHF, COPD, diabetes, GERD, hyperlipidemia, hypertension , other Psychiatric history: anxiety, depression - Past Surgical History Surgical History: sinus surgery, other - Social History Smoking Status: Former smoker Smokeless Tobacco Status: No Alcohol use: none Drug use: none - Family History Father Adopted: No Family Member Ethnicity: Non- Living Status: Hx Family Cardiac Disorders: No Hx Family Respiratory Disorders: Yes Hx Family Cancer: No Hx Family GI Disorders: No Hx Family Endocrine Disorder: No Hx Family Neuromuscular Disorders: No Hx Family Neurologic Disorders: No Hx Family HEENT Disorders: No Hx Family Autoimmune Disorders: No Internal Medicine - H&P: Meds Albuterol Neb [Proventil Neb] 2.5 mg IH Q4HR PRN 08/28/15 [History] Fluticasone/Salmeterol [Advair 100-50 Diskus] 1 puff PO BID 08/28/15 [History] Lovastatin 40 mg PO DAILY 08/28/15 [History] Omeprazole [PriLOSEC] 20 mg PO DAILY 08/28/15 [History] Tiotropium [Spiriva] 18 mcg IH DAILY 08/28/15 [History] traZODone [TraZODone] 50 mg PO HS PRN 08/28/15 [History] Insulin Glargine [Lantus] 12 unit SQ HS 09/29/15 [History] Ibuprofen [Motrin] 600 mg PO Q8HR PRN 12/02/15 [History] Famotidine [Heartburn Prevention] 20 mg PO HS 05/24/16 [History] Furosemide [Lasix] 80 mg PO BID 05/24/16 [History] Potassium Chloride [K-Tab ER] 20 meq PO DAILY 05/24/16 [History] Sennosides [Senna] 17.2 mg PO HS 05/25/16 [History] Albuterol Sulfate [Albuterol Inhaler] 2 puff IH Q6HR PRN #1 hfa.aer.ad 06/27/16 [Rx] Tramadol HCl [Ultram] 50 mg PO QID #8 tab 11/15/16 [Rx] Lactobacillus [Culturelle] 1 each PO BID #6 cap.sprink 03/29/17 [Rx] 3 Allergy/AdvReac Type Severity Reaction Status Date / Time No Known Allergies Allergy Verified 05/05/17 05:39 All Systems PM: A 10-system review of systems was performed and is negative for pertinent findings except as documented above in the HPI. Review of systems: Review of systems from his March 2017 [facility] hospitalization were reviewed and revised as below Gen.: His weight has increased from 81.647 kg at the February 2015 [facility] hospitalization to admission weight of 96.388 kg on admission now Cardiovascular: He denies [place] hypertension heart failure angina DVT or pulmonary embolus Respiratory: As per history of present illness GI: He has no known disorder of his liver gallbladder or exocrine pancreas : There is no known hematuria dysuria or kidney stones Neurologic: No history of large distribution strokes or seizures. He does have severe hearing loss Endocrine: He has been diagnosed with DM 2 approximately 2014 with his most recent hemoglobin A1c being 8.3% on 10/13/2016. He has hyperlipidemia. TSH was suppressed at 0.277 on 08/30/2015 but was normal at 1.374 on 10/13/2016. Hematology/oncology: There is no known blood disorders. He had lung cancer as per history of present illness. There are no other known malignancies. Psychiatric: He has major depressive disorder and panic attacks. [place] skeletal: He has DJD but no known gout or osteoporosis - Constitutional Vitals: Temp Pulse Resp BP Pulse Ox 98.4 F 144 16 97/64 90 05/05/17 11:49 05/05/17 11:49 05/05/17 13:56 05/05/17 11:49 05/05/17 13:56 Exam: Gen.: He is well-developed overweight male sitting in bed who appears dyspneic and coughs frequently. HEENT: Head is atraumatic and normocephalic. Eyes: EOMI. There is no scleral icterus. Mouth: Mucosa is moist. Neck: Supple and nontender. There is no thyromegaly or adenopathy noted. Heart: Regular without murmurs gallops or ectopics. Rate is 140/m Lungs: He has diminished breath sounds diffusely. No egophony or wheezing is heard. Abdomen: Has a large abdomen. There is mild tenderness to palpation the right lower quadrant that appears to be in the wall musculature. There is a small umbilical hernia which is easily reducible. Extremities: He has trace edema bilaterally in the lower anterior shins. Dorsalis pedis and posterior tibial pulses are trace to 1+ palpable bilaterally. Neurologic: Mental status: He is talkative and a good historian. Cranial nerves : Smile is symmetric. Forehead wrinkles bilaterally. Tongue protrudes midline. EOMI. Motor: There is no pronator drift. Cerebellar: Finger to nose is intact bilaterally. Skin: Warm and dry Internal Med - H&P Results - Labs CBC & Chem 7: 05/05/17 03:45 05/05/17 03:45 - VTE Reasons for not Prescribing Prophylaxis: Refused by patient
[2017-05-05] MEDS: Benzonatate 100 MG CAPSULE PO SCH ×2 (17:25→21:40)
[2017-05-05] MEDS ORDERED: Insulin DETEMIR 100 UNIT/ML X5UNITS SQ SCH (21:00)
[2017-05-05] MEDS ORDERED: Famotidine 20 MG TABLET PO SCH (21:00)
[2017-05-05] MEDS ORDERED: NON-FORMULARY MEDICATION 1 EACH EACH (Insulin Glargine [Lantus] 12 UNIT) SQ SCH (21:00)
[2017-05-06] MEDS: Albuterol 2.5 MG/3 ML NEBULIZER IH PRN (02:18)
[2017-05-06 05:47] LABS: Basophils % 0.3 %; Eosinophils % 0.2 %; Hematocrit 35.8 % (37.5-50.1); Hemoglobin 11.4 g/dL (12.9-16.9); Immature Granulocytes % 0.5 % (0-4); Lymphocytes # 1.2 K/mcL (0.6-4.6); Mean Corpuscular HGB Conc 31.8 g/dL (31.6-35.5); Mean Corpuscular Hemoglobin 27.6 pg (28.0-33.3); Mean Corpuscular Volume 86.7 fL (83.0-100.0); Monocytes # 1.5 K/mcL (0.0-1.3); Monocytes % 14.6 %; Neutrophils # 7.5 K/mcL (1.6-8.9); Platelet Count 243 K/mcL (140-400); Red Blood Count 4.13 M/mcL (4.19-5.50); Red Cell Distribution Width 14.3 % (11.5-14.5); Segmented Neutrophils % 72.4 %
[2017-05-06 06:05] LABS: BUN/Creatinine Ratio 19 (6-26); Blood Urea Nitrogen 16 mg/dL (8-26); Calcium 9.4 mg/dL (8.6-10.8); Chloride 91 mEq/L (98-109); Glucose 209 mg/dL (70-99); Magnesium 1.8 mg/dL (1.6-2.6); Osmolality,Calculated 299 (280-300); Potassium 3.7 mEq/L (3.5-4.5); Sodium 141 mEq/L (136-145); eGFR For African Americans > 60 (> 60); eGFR For Non-African Americans > 60 (> 60)
[2017-05-06 06:30] LABS: Carbon Dioxide 41 mEq/L (19-29)
[2017-05-06] MEDS: Lactobacillus 1 EACH CAP.SPRINK PO SCH (07:28)
[2017-05-06] MEDS: Furosemide 40 MG TABLET PO SCH (07:28)
[2017-05-06] MEDS: Benzonatate 100 MG CAPSULE PO SCH (07:28)
[2017-05-06] MEDS: traMADol 50 MG TABLET PO SCH (07:28)
[2017-05-06] MEDS ORDERED: cefTRIAXone 1,000 MG in Water for inj. (sterile) 10 ML IVP SCH (09:00)
[2017-05-06] MEDS ORDERED: Azithromycin 500 MG in D5% in Water 250 ML IVPB SCH ×2 (09:00→10:00)
--- NOTE | 2017-05-06 09:22 | Electrocardiograph Report ---
[address] [address] Test Date: 2017-05-05 Pat Name: Dru Tamez Department: [id number] Room: [facility] Gender: M Drafter Refrigeration: [place] : 1955 Requested By: Huang Crawley Order Number: [id number] Reading MD: Giuliana Luke Measurements Intervals [place] Rate: 132 P: 57 CO: 141 QRS: 131 QRSD: 86 T: 48 QT: 301 QTc: 379 Interpretive Statements SINUS TACHYCARDIA PATTERN CONSISTENT WITH PULMONARY DISEASE POSSIBLE RIGHT VENTRICULAR HYPERTROPHY Electronically Signed On 05-06-2017 9:21:00 EST by Giuliana Luke
[2017-05-06 10:06] LABS: Folate 20.9 ng/mL (3.0-16.0)
[2017-05-06 10:27] VITALS: BP 123/73
[2017-05-06 11:09] LABS: % Iron Saturation 24 % (20-55); Ferritin > 1350 ng/ml (20-250); Iron 64 mcg/dL (65-175); Transferrin 194 mg/dL (203-362)
--- NOTE | 2017-05-06 12:07 | Discharge Summary ---
Date of Encounter: 05/06/17 Time of Encounter: 11:55 - Discharge Diagnosis (1) COPD exacerbation Priority: Primary Status: Acute (2) Anemia Priority: Secondary Status: Acute Qualifiers: Anemia type: unspecified type Qualified Code(s): D64.9 - Anemia, unspecified (3) Tachycardia Priority: Secondary Status: Acute (4) Lung cancer Priority: Secondary Status: Chronic Qualifiers: Laterality: right Lung location: unspecified part of lung Qualified Code( s): C34.91 - Malignant neoplasm of unspecified part of right bronchus or lung - Discharge Medications Prescriptions: Cefuroxime PO [Ceftin] 500 mg PO Q12HR #6 tablet Azithromycin [Zithromax] 250 mg PO DAILY #3 tablet Benzonatate [Tessalon] 100 mg PO TID #9 capsule Lactobacillus [Culturelle] 1 each PO BID #6 cap.sprink Metoprolol XL (24 HR) Succ [Toprol XL] 25 mg PO DAILY #30 tab.er.24h Home Medications: Albuterol Neb [Proventil Neb] 2.5 mg IH Q4HR PRN 08/28/15 [History] Fluticasone/Salmeterol [Advair 100-50 Diskus] 1 puff PO BID 08/28/15 [History] Lovastatin 40 mg PO DAILY 08/28/15 [History] Omeprazole [PriLOSEC] 20 mg PO DAILY 08/28/15 [History] Tiotropium [Spiriva] 18 mcg IH DAILY 08/28/15 [History] traZODone [TraZODone] 50 mg PO HS PRN 08/28/15 [History] Insulin Glargine [Lantus] 12 unit SQ HS 09/29/15 [History] Ibuprofen [Motrin] 600 mg PO Q8HR PRN 12/02/15 [History] Famotidine [Heartburn Prevention] 20 mg PO HS 05/24/16 [History] Potassium Chloride [K-Tab ER] 20 meq PO DAILY 05/24/16 [History] Sennosides [Senna] 17.2 mg PO HS 05/25/16 [History] Albuterol Sulfate [Albuterol Inhaler] 2 puff IH Q6HR PRN #1 hfa.aer.ad 06/27/16 [Rx] Tramadol HCl [Ultram] 50 mg PO QID #8 tab 07/10/17 [Rx] Azithromycin [Zithromax] 250 mg PO DAILY #3 tablet 05/06/17 [Rx] Benzonatate [Tessalon] 100 mg PO TID #9 capsule 05/06/17 [Rx] Cefuroxime PO [Ceftin] 500 mg PO Q12HR #6 tablet 05/06/17 [Rx] Furosemide [Lasix] 40 mg PO BID #0 05/06/17 [Rx] Lactobacillus [Culturelle] 1 each PO BID #6 cap.sprink 05/06/17 [Rx] Metoprolol XL (24 HR) Succ [Toprol XL] 25 mg PO DAILY #30 tab.er.24h 05/06/17 [ Rx] Allergies/Adverse Reactions: 3 Allergy/AdvReac Type Severity Reaction Status Date / Time No Known Allergies Allergy Verified 05/05/17 05:39 Date of admission: 05/05/17 05:47 Primary care physician: Rowdy Tinajero DO - Patient Status Disposition: Home, Self-Care Condition: Good Overall status at discharge: patient is progressing back to baseline - Discharge Instructions Follow Up With: Rowdy Tinajero DO [Primary Care Provider] - 1 week - Diet and Activity Activity: resume usual activities as tolerated, wear oxygen at all times Diet: advance to your usual diet Hospital course: Mr. Tamez is a 61 year old male who came to emergency room stating had increased dyspnea and cough over the past 2 weeks. The cough is productive of white phlegm. He complains of sore throat and overall weakness. He was evaluated in emergency room and felt to have exacerbation of COPD with possible pneumonia. He was admitted to [facility] floor for ongoing care needs. Initial orders were written by the emergency room physician. I saw him on May 05 and performed the history and physical. He was started on Rocephin , Zithromax, and Solu-Medrol in the emergency room. He remained afebrile during his hospital stay. He felt improved when I saw him on May 06 and will be discharged home. He will follow with his PCP Dr. Tinajero within 1 week. He will continue with antibiotic, probiotic and Tessalon Perles for 3 additional days at discharge. Anemia testing showed iron 64, transferrin saturation 24%, transferrin 194, ferritin greater than 1350, B12 171, and folate 20.9. He will be prescribed OTC B12 1000 mcg daily at discharge. He had tachycardia and was given IV beta shell which slowed his rate. He will continue with oral Toprol-XL 25 mg daily at discharge. Supplemental potassium was given and hypokalemia normalized with potassium 3.7 on day of discharge. His Lasix dose will be reduced to 40 mg twice a day since he has no evidence of failure and BNP peptide was normal at 35 on admission. On May 06 he was stable for discharge home. He will follow with Dr. Tinajero within 1 week. - Time Spent with Patient Total time spent providing and/or coordinating discharge services: - Constitutional Vitals: Temp Pulse Resp BP Pulse Ox 97.7 F 110 18 123/73 94 05/06/17 10:23 05/06/17 10:23 05/06/17 10:23 05/06/17 10:23 05/06/17 10:23 - VTE Reasons for not Prescribing Prophylaxis: Refused by patient
== END 2017-05-06 14:47 | disposition home or self-care (01) ==
LOC: EMEROOPIK 03:21 → INPPIK 03:21
PROVIDERS: ADMIT Internal Medicine; ATTEND Internal Medicine

== ENCOUNTER 2018-07-14 17:09 | Observation (INO) ==
[2018-07-14] MEDS ORDERED: Ipratropium/Albuterol Neb 3 ML IH ONE ×2 (17:33→19:15)
--- NOTE | 2018-07-14 17:35 | Emergency Department Note ---
Disposition Clinical Impression: Community acquired pneumonia Disposition: Admitted As Inpatient Condition: Fair Referrals: Nancy Gama CNP [Primary Care Provider] - Forms: ED Satisfaction Letter Time of Disposition: 18:56 SOB HPI - General Chief Complaint: ED Shortness of Breath/Dyspnea Stated Complaint: SHORT OF BREATH X1 WEEK Time Seen by Provider: 07/14/18 17:15 Source: patient Mode of arrival: ambulatory Limitations: no limitations Nursing Notes Reviewed: Yes Vital Signs Reviewed: Yes - History of Present Illness 63-year-old male who presents emergency room with increasing stress breath cough congestion fever chills aches he denies though any blurred vision double vision loss vision states she is bringing up yellow-green phlegm patient states he is not getting any relief with his aerosol treatments he denies diarrhea melena hematochezia hematemesis he denies numbness tingling weakness denies any recent weight gain or weight loss patient states is been getting worse over the past couple of days to the point today where he is unable to get out moving around he has get get been getting some relief with doing his aerosol treatments all review systems are they are otherwise negative with complete entire review Pt Subjective Complaint: shortness of breath, cough Onset (ago): day(s) Context: recent illness Severity: moderate Consistency/Duration: intermittent, gradually worsening Improves with: oxygen, bronchodilators Worsens with: exertion, movement Known history of: COPD, diabetes, recurrent pneumonia Associated symptoms: Reports: fever, cough, wheezing, sputum production. Denies: chest pain, pain with inspiration, orthopnea, lower extremity pain, polyuria, polydipsia, parasthesias, palpitations, hemoptysis, diaphoresis, nausea/vomiting, syncope, abdominal pain, sense of impending doom Treatment prior to arrival: oxygen, bronchodilator Cough present: Yes Cough Description: Involuntary, Productive, Strong Cough Frequency: Intermittent Sputum production: Yes Sputum Amount: Small Sputum Color: Yellow - Related Data Home Medications Medication Instructions Recorded Confirmed Albuterol Neb [Proventil Neb] 2.5 mg IH Q4HR PRN 08/28/15 12/10/17 Lovastatin 40 mg PO DAILY 08/28/15 12/10/17 Omeprazole [PriLOSEC] 20 mg PO DAILY 08/28/15 12/10/17 Tiotropium [Spiriva] 18 mcg IH DAILY 08/28/15 12/10/17 Insulin Glargine [Lantus] 25 unit SQ HS 09/29/15 12/10/17 Ibuprofen [Motrin] 600 mg PO Q8HR PRN 12/02/15 12/10/17 Sennosides [Senna] 17.2 mg PO HS 05/25/16 12/10/17 Bumetanide 2 mg PO DAILY 07/26/17 12/10/17 Guaifenesin [Mucinex] 600 mg PO BID 07/26/17 12/10/17 Amoxicillin/Clavulanate [Augmentin] 875 mg PO BIDWM 07/14/18 07/14/18 Benzonatate 100 mg PO TID 07/14/18 07/14/18 Furosemide [Lasix] 80 mg PO 07/14/18 Nystatin [Nystatin Suspension] 100,000 unit PO 07/14/18 07/14/18 Polyvinyl Alcohol [Artificial 1 drop RIGHT EYE QID 07/14/18 07/14/18 Tears] Previous Rx's Medication Instructions Recorded Albuterol Sulfate [Albuterol 2 puff IH Q6HR PRN #1 hfa.aer.ad 06/27/16 Inhaler] Metoprolol XL (24 HR) Succ [Toprol 25 mg PO DAILY #30 tab.er.24h 05/06/17 Xl] Potassium Chloride 10 meq PO BIDWM #60 tab.er.prt 07/28/17 Allergies Allergy/AdvReac Type Severity Reaction Status Date / Time No Known Allergies Allergy Verified 12/10/17 17:19 All systems ED: reviewed and negative except as stated. Review of Systems: As Per HPI Constitutional: Reports: fever, weakness. Denies: chills Eyes: Denies: eye pain, eye discharge ENT ED: Denies: ear pain, throat pain Cardiovascular: Reports: dyspnea on exertion. Denies: chest pain, palpitations Respiratory: Reports: cough, dyspnea, wheezes, sputum production. Denies: hemoptysis Gastrointestinal: Denies: abdominal pain, nausea Genitourinary: Denies: urgency, dysuria, frequency Musculoskeletal: Denies: back pain, neck pain Integumentary: Denies: rash, abrasion Neurological: Denies: headache, weakness Psychiatric: Denies: anxiety Endocrine: Denies: fatigue Hematological/Lymphatic: Denies: easy bleeding Allergic/Immunologic: Denies: facial swelling Past Medical History - Past Medical History Attestation: Yes The following information was validated with the patient. Source: patient, old records reviewed, nursing notes reviewed Medical history: Reports: cancer, CHF, COPD, diabetes, GERD, hyperlipidemia, hypertension, other Surgical history: Reports: sinus surgery Psychiatric history: Reports: anxiety, depression - Social History Smoking Status: Former smoker Smokeless Tobacco Status: No Alcohol use: Reports: none Drug use: Reports: none Physical Exam - General Limitations: no limitations General appearance: alert, in no apparent distress, anxious - Head Head exam: atraumatic, normocephalic, normal inspection - Eye Eye exam: Present: normal appearance, PERRL, EOMI - ENT ENT exam: normal exam, normal oropharynx, mucous membranes moist, TM's normal bilaterally, normal external ear exam - Neck Neck exam: Present: normal inspection, full ROM, trachea midline - Chest Chest inspection: Present: normal inspection, symmetric chest wall rise - Respiratory Respiratory exam: Present: wheezes, prolonged expiratory phase - Cardiovascular Cardiovascular exam: Present: tachycardia, normal heart sounds - Abdominal Exam Abdominal exam: Present: soft, Non-Tender, normal bowel sounds - Extremities Exam Extremities exam: Present: normal inspection, full ROM, normal capillary refill. Absent: tenderness, pedal edema, joint swelling, calf tenderness - Expanded Lower Extremity Exam Neurovascular/Tendon exam: Present: normal capillary refill, normal fine/light touch Gait: observed and normal - Back Exam Back exam: Present: normal inspection, full ROM. Absent: muscle spasm - Neurological Exam Neurological exam: Present: alert, oriented X3, CN II-XII intact - Psychiatric Psychiatric exam: Present: normal affect, normal mood - Skin Skin exam: Present: warm, dry, intact, normal color Course Course Narrative: Patient was seen and evaluated examinations performed she was given an aerosol treatment 2 patient's heart rate did go up a little bit with this he then started having the choking coughing to try to bring up some more phlegm and we gave him some additional treatments he was admitted transfer to [facility]. Lites were started he did not meet sepsis criteria as result we did give him fluid hydration upon his ideal body weight approximately 150 pounds transferred to [facility] service of Vital Signs Temperature 98.6 F 07/14/18 17:12 Pulse Rate 119 07/14/18 17:12 Respiratory Rate 18 07/14/18 17:12 Blood Pressure 150/92 07/14/18 17:12 O2 Sat by Pulse Oximetry 94 07/14/18 17:12 Temperature 98.2 F 07/14/18 18:18 Pulse Rate 123 07/14/18 19:02 Respiratory Rate 24 07/14/18 19:02 Blood Pressure 128/81 07/14/18 19:02 O2 Sat by Pulse Oximetry 91 07/14/18 19:02 Oxygen Delivery Oxygen Delivery Nasal Cannula Shortness of Breath/Dyspnea - Medical Records Medical records reviewed: Yes I reviewed the patient's medical records. - Lab Data Lab results reviewed: Yes I reviewed the patient's lab results. Result diagrams: 07/14/18 17:21 07/14/18 17:21 Lab Results 07/14/18 07/14/18 07/14/18 Range/Units 17:21 17:21 17:21 WBC 7.0 (4.3-11.1) K/mcL RBC 4.76 (4.19-5.50) M/mcL Hgb 13.6 (12.9-16.9) g/dL Hct 42.4 (37.5-50.1) % MCV 89.1 (83.0-100.0) fL MCH 28.6 (28.0-33.3) pg MCHC 32.1 (31.6-35.5) g/dL RDW 13.4 (11.5-14.5) % Plt Count 192 (140-400) K/mcL MPV 10.2 (9.4-12.4) fL Immature Gran % 0.6 (0-4) % Seg Neutrophils % 68.3 % Lymphocytes % 16.4 % Monocytes % 11.2 % Eosinophils % 2.9 % Basophils % 0.6 % Neutrophils # 4.8 (1.6-8.9) K/mcL Lymphocytes # 1.1 (0.6-4.6) K/mcL Monocytes # 0.8 (0.0-1.3) K/mcL Eosinophils # 0.2 (0.0-0.6) K/mcL Basophils # 0.0 (0.0-0.2) K/mcL PT 13.0 H (9.4-12.1) Seconds INR 1.2 APTT 34.8 (26.0-36.0) Seconds Sodium (136-145) mEq/L Potassium (3.5-5.1) mEq/L Chloride (98-107) mEq/L Carbon Dioxide (23-29) mEq/L BUN (8-23) mg/dL Creatinine (0.70-1.30) mg/dL Est GFR ( Amer) (> 60) Est GFR (Non-Af Amer) (> 60) BUN/Creatinine Ratio (6-26) Glucose (70-105) mg/dL Calculated Osmolality (280-300) Lactic Acid (0.5-2.2) mmol/L Calcium (8.6-10.3) mg/dL Total Bilirubin (0.3-1.0) mg/dL AST (13-39) Units/L ALT (7-52) Units/L Alkaline Phosphatase (34-104) Units/L Troponin I (< 0.04) ng/mL B-Natriuretic Peptide (Less than 100) pg/mL Serum Total Protein (6.4-8.9) g/dL Albumin (3.5-5.7) g/dL Globulin (2.4-3.5) g/dL Albumin/Globulin Ratio (1.1-2.2) TSH (0.340-5.600) mcIU/mL Urine Color (Yellow) Urine Clarity (Clear) Urine pH (5.0-8.0) pH Units Ur Specific [place] (1.010-1.025) Urine Protein (Neg-Trace) mg/dL Urine Glucose (UA) (Normal) mg/dL Urine Ketones (Negative) mg/dL Urine Blood (Negative) Urine Nitrite (Negative) Urine Bilirubin (Negative) Urine Urobilinogen (Normal) mg/dL Ur Leukocyte Esterase (Negative) Urine Microscopic WBC (0-3) per hpf Ur Squamous Epith Cells (None-Few) per lpf Urine Yeast (None Seen) per hpf Ur Culture Indicated? (NO) 07/14/18 07/14/18 07/14/18 Range/Units 17:21 17:21 17:21 WBC (4.3-11.1) K/mcL RBC (4.19-5.50) M/mcL Hgb (12.9-16.9) g/dL Hct (37.5-50.1) % MCV (83.0-100.0) fL MCH (28.0-33.3) pg MCHC (31.6-35.5) g/dL RDW (11.5-14.5) % Plt Count (140-400) K/mcL MPV (9.4-12.4) fL Immature Gran % (0-4) % Seg Neutrophils % % Lymphocytes % % Monocytes % % Eosinophils % % Basophils % % Neutrophils # (1.6-8.9) K/mcL Lymphocytes # (0.6-4.6) K/mcL Monocytes # (0.0-1.3) K/mcL Eosinophils # (0.0-0.6) K/mcL Basophils # (0.0-0.2) K/mcL PT (9.4-12.1) Seconds INR APTT (26.0-36.0) Seconds Sodium 141 (136-145) mEq/L Potassium 3.3 L (3.5-5.1) mEq/L Chloride 97 L (98-107) mEq/L Carbon Dioxide 37 H (23-29) mEq/L BUN 10 (8-23) mg/dL Creatinine 0.82 (0.70-1.30) mg/dL Est GFR ( Amer) > 60 (> 60) Est GFR (Non-Af Amer) > 60 (> 60) BUN/Creatinine Ratio 12 (6-26) Glucose 304 H (70-105) mg/dL Calculated Osmolality 302 H (280-300) Lactic Acid 2.1 (0.5-2.2) mmol/L Calcium 9.2 (8.6-10.3) mg/dL Total Bilirubin 0.3 (0.3-1.0) mg/dL AST 22 (13-39) Units/L ALT 23 (7-52) Units/L Alkaline Phosphatase 105 H (34-104) Units/L Troponin I < 0.03 (< 0.04) ng/mL B-Natriuretic Peptide 180 H (Less than 100) pg/mL Serum Total Protein 6.9 (6.4-8.9) g/dL Albumin 3.8 (3.5-5.7) g/dL Globulin 3.1 (2.4-3.5) g/dL Albumin/Globulin Ratio 1.2 (1.1-2.2) TSH 1.947 (0.340-5.600) mcIU/mL Urine Color (Yellow) Urine Clarity (Clear) Urine pH (5.0-8.0) pH Units Ur Specific [place] (1.010-1.025) Urine Protein (Neg-Trace) mg/dL Urine Glucose (UA) (Normal) mg/dL Urine Ketones (Negative) mg/dL Urine Blood (Negative) Urine Nitrite (Negative) Urine Bilirubin (Negative) Urine Urobilinogen (Normal) mg/dL Ur Leukocyte Esterase (Negative) Urine Microscopic WBC (0-3) per hpf Ur Squamous Epith Cells (None-Few) per lpf Urine Yeast (None Seen) per hpf Ur Culture Indicated? (NO) 07/14/18 Range/Units 17:40 WBC (4.3-11.1) K/mcL RBC (4.19-5.50) M/mcL Hgb (12.9-16.9) g/dL Hct (37.5-50.1) % MCV (83.0-100.0) fL MCH (28.0-33.3) pg MCHC (31.6-35.5) g/dL RDW (11.5-14.5) % Plt Count (140-400) K/mcL MPV (9.4-12.4) fL Immature Gran % (0-4) % Seg Neutrophils % % Lymphocytes % % Monocytes % % Eosinophils % % Basophils % % Neutrophils # (1.6-8.9) K/mcL Lymphocytes # (0.6-4.6) K/mcL Monocytes # (0.0-1.3) K/mcL Eosinophils # (0.0-0.6) K/mcL Basophils # (0.0-0.2) K/mcL PT (9.4-12.1) Seconds INR APTT (26.0-36.0) Seconds Sodium (136-145) mEq/L Potassium (3.5-5.1) mEq/L Chloride (98-107) mEq/L Carbon Dioxide (23-29) mEq/L BUN (8-23) mg/dL Creatinine (0.70-1.30) mg/dL Est GFR ( Amer) (> 60) Est GFR (Non-Af Amer) (> 60) BUN/Creatinine Ratio (6-26) Glucose (70-105) mg/dL Calculated Osmolality (280-300) Lactic Acid (0.5-2.2) mmol/L Calcium (8.6-10.3) mg/dL Total Bilirubin (0.3-1.0) mg/dL AST (13-39) Units/L ALT (7-52) Units/L Alkaline Phosphatase (34-104) Units/L Troponin I (< 0.04) ng/mL B-Natriuretic Peptide (Less than 100) pg/mL Serum Total Protein (6.4-8.9) g/dL Albumin (3.5-5.7) g/dL Globulin (2.4-3.5) g/dL Albumin/Globulin Ratio (1.1-2.2) TSH (0.340-5.600) mcIU/mL Urine Color Yellow (Yellow) Urine Clarity Clear (Clear) Urine pH 6.5 (5.0-8.0) pH Units Ur Specific [place] 1.010 (1.010-1.025) Urine Protein Negative (Neg-Trace) mg/dL Urine Glucose (UA) 500 H (Normal) mg/dL Urine Ketones Negative (Negative) mg/dL Urine Blood Negative (Negative) Urine Nitrite Negative (Negative) Urine Bilirubin Negative (Negative) Urine Urobilinogen Normal (Normal) mg/dL Ur Leukocyte Esterase Small H (Negative) Urine Microscopic WBC 3-5 H (0-3) per hpf Ur Squamous Epith Cells Few (None-Few) per lpf Urine Yeast Few H (None Seen) per hpf Ur Culture Indicated? YES A (NO) - Radiology Data Radiology results reviewed: Yes I reviewed the patient's radiology results. ITS Impressions Chest X-Ray 07/14/18 17:31 IMPRESSION: Bilateral airspace opacification in the lung bases could represent pneumonia. Unchanged blunting of the costophrenic angles most likely representing scarring D/ / Donato Ruff MD / Donato Ruff MD Interpreting Provider: Donato Ruff MD - EKG Data EKG attestation: Yes I reviewed and interpreted this EKG. EKG results narrative: Sinus tach rate 123 WA and 39 QRS 93 QT 3:30 access 207 Critical Care Time Critical Care Time: Yes Total Critical Care Time: 15 Attestation: Probably clinically significant life-threatening deterioration of this patient exclusive reportable procedures when he starts having chest choking episodes he starts desaturated concern is that he may be have some mucus plugging as result that he does respond well when given the aerosols patient will be transferred to [facility] Sepsis Event Note - Evaluation Sepsis Screen: No Definite Risk Current Stage of Suspected Sepsis: sepsis Possible Source of Sepsis: pulmonary - Focused Exam Date of Encounter: 07/14/18 Time of Encounter: 18:47 Vital Signs: Vital Signs Temp Pulse Resp BP Pulse Ox 07/14/18 19:02 123 24 128/81 91 07/14/18 18:18 98.2 F 135 20 154/96 92 07/14/18 17:46 18 93 07/14/18 17:12 98.6 F 119 18 150/92 94 Respiratory Exam: Present: wheezes, rhonchi Cardiovascular Exam: Present: tachycardia Capillary Refill: < 2 seconds Peripheral Pulse Strength: 3+ normal Peripheral Pulse Location: Radial Skin Exam: normal turgor - Bedside Monitoring Bedside Ultrasound Performed: No Passive Leg raise/fluid bolus: negative
[2018-07-14] MEDS ORDERED: 0.9 % Sodium Chloride 1,000 ML IVC SCH (17:45)
[2018-07-14 17:50] LABS: Bilirubin,Urine Negative (Negative); Blood,Urine Negative (Negative); Clarity,Urine Clear (Clear); Color,Urine Yellow (Yellow); Glucose,Urine (UA) 500 mg/dL (Normal); Ketones,Urine Negative (Negative); Leukocyte Esterase,Urine Small (Negative); Nitrite,Urine Negative (Negative); PH,Urine 6.5 pH Units (5.0-8.0); Protein,Urine Negative (Neg-Trace); Urobilinogen,Urine Normal (Normal)
[2018-07-14 17:57] LABS: Squamous Epithelial Cell,Urine Few per lpf (None-Few); Yeast,Urine Few per hpf (None Seen)
[2018-07-14 18:08] LABS: Basophils % 0.6 %; Eosinophils # 0.2 K/mcL (0.0-0.6); Eosinophils % 2.9 %; Hematocrit 42.4 % (37.5-50.1); Hemoglobin 13.6 g/dL (12.9-16.9); Immature Granulocytes % 0.6 % (0-4); Lymphocytes # 1.1 K/mcL (0.6-4.6); Lymphocytes % 16.4 %; Mean Corpuscular HGB Conc 32.1 g/dL (31.6-35.5); Mean Corpuscular Hemoglobin 28.6 pg (28.0-33.3); Mean Corpuscular Volume 89.1 fL (83.0-100.0); Mean Platelet Volume 10.2 fL (9.4-12.4); Monocytes # 0.8 K/mcL (0.0-1.3); Monocytes % 11.2 %; Neutrophils # 4.8 K/mcL (1.6-8.9); Platelet Count 192 K/mcL (140-400); Red Blood Count 4.76 M/mcL (4.19-5.50); Red Cell Distribution Width 13.4 % (11.5-14.5); Segmented Neutrophils % 68.3 %
[2018-07-14 18:15] LABS: INR 1.2
[2018-07-14 18:26] LABS: Alanine Aminotransferase 23 Units/L (7-52); Albumin 3.8 g/dL (3.5-5.7); Albumin/Globulin Ratio 1.2 (1.1-2.2); Alkaline Phosphatase 105 Units/L (34-104); Aspartate Amino Transferase 22 Units/L (13-39); BUN/Creatinine Ratio 12 (6-26); Bilirubin,Total 0.3 mg/dL (0.3-1.0); Blood Urea Nitrogen 10 mg/dL (8-23); Calcium 9.2 mg/dL (8.6-10.3); Carbon Dioxide 37 mEq/L (23-29); Chloride 97 mEq/L (98-107); Globulin 3.1 g/dL (2.4-3.5); Glucose 304 mg/dL (70-105); Osmolality,Calculated 302 (280-300); Potassium 3.3 mEq/L (3.5-5.1); Sodium 141 mEq/L (136-145); Total Protein 6.9 g/dL (6.4-8.9); Troponin I < 0.03 ng/mL (< 0.04); eGFR For Non-African Americans > 60 (> 60)
[2018-07-14 18:40] LABS: Thyroid Stimulating Hormone 1.947 mcIU/mL (0.340-5.600)
[2018-07-14] MEDS ORDERED: Azithromycin 500 MG in D5% in Water 250 ML IVPB ONE ×2 (18:46→20:00)
[2018-07-14] MEDS ORDERED: D5% in Water 1,000 ML IVC PRN (20:09)
[2018-07-14] MEDS ORDERED: Dextrose Gel 15 GM/37.5 ML TUBE PO PRN ×2 (20:09)
[2018-07-14] MEDS ORDERED: Dextrose 4 GM Chewable Tablets PO PRN ×2 (20:09)
[2018-07-14] MEDS ORDERED: *HR* Dextrose 50 % in Water (Syg) 50 ML SYRINGE IVP PRN (20:09)
[2018-07-14] MEDS ORDERED: Naloxone 0.4 MG/ML INJ IVP PRN (20:09)
[2018-07-14] MEDS ORDERED: Insulin DETEMIR 100 UNIT/ML per UNIT SQ ONE (21:00)
[2018-07-14] MEDS: Ibuprofen 600 MG TABLET PO PRN (22:22)
[2018-07-14] MEDS: Sennosides 8.6 MG TABLET PO SCH (22:23)
[2018-07-14] MEDS: Artificial Tears SOLN 15 ML BOTTLE RIGHT EYE SCH (22:23)
[2018-07-14] MEDS ORDERED: Albuterol 2.5 MG/3 ML NEBULIZER IH ONE (23:08)
[2018-07-14] MEDS ORDERED: Albuterol 2.5 MG/3 ML NEBULIZER ONE (23:13)
[2018-07-14] MEDS: 0.9 % Sodium Chloride 1,000 ML IVC SCH (23:39)
[2018-07-15] LABS: ABG Base Excess 8 mEq/L (-2 to 3); ABG HCO3 36 mEq/L (21-27); ABG Oxygen Saturation 98 % (95-98); ABG PCO2 65 mmHg (35-45); ABG PH 7.35 pH Units (7.32-7.45); ABG PO2 123 mmHg (85-104); ABG TCO2 38 mEq/L (20-26)
[2018-07-15] MEDS ORDERED: *HR* Dextrose 50 % in Water (Vial) 50 ML VIAL IVP PRN (08:30)
[2018-07-15] MEDS: Insulin LISPRO 300 UNITS/3 ML VIAL SQ SCH ×3 (08:50→16:40)
[2018-07-15] MEDS: Artificial Tears SOLN 15 ML BOTTLE RIGHT EYE SCH ×4 (08:50→20:45)
[2018-07-15] MEDS ORDERED: Bumetanide 1 MG TABLET PO SCH (09:00)
[2018-07-15] MEDS ORDERED: Metoprolol XL (24 HR) Succ 25 MG TAB.ER.24H PO SCH (09:00)
--- NOTE | 2018-07-15 10:01 | Internal Med History&Physical ---
Date of Encounter: 07/15/18 Time of Encounter: 09:30 Assessment and Plan (1) Community acquired pneumonia Current visit: Yes Status: Acute Equivocal evidence. Chest CT report May 2018 documented per history of present illness shows left lower lobe scarring. WBC normal with no left shift on differential. He has been started on empiric antibiotics. Qualifiers: Laterality: left Lung location: lower lobe of lung Qualified Code(s): J18.1 - Lobar pneumonia, unspecified organism (2) Hypokalemia Current visit: Yes Status: Acute Probably secondary to diuretic use. Supplemental potassium will be given. (3) Type 2 diabetes mellitus Current visit: No Status: Chronic Hemoglobin A1c 8.2% on 05/04/2018. Continue Lantus/Levemir and do Accu-Cheks with SSI. 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 Toprol will be continued. Qualifiers: Qualified Code(s): I50.33 - Acute on chronic diastolic (congestive) heart failure (5) Lung cancer Current visit: No Status: Chronic As per [facility] oncologists. Qualifiers: Laterality: right Lung location: unspecified part of lung Qualified Code(s): C34.91 - Malignant neoplasm of unspecified part of right bronchus or lung Internal Medicine - H&P: HPI Chief complaint: Cough and dyspnea Admitted From: Emergency Dept Plans for Post Hospital Care: Home History of present illness: Mr. Tamez is a 63 year old male who came to emergency room complaining of increased dyspnea for approximately one week. He had coughing with minimal productivity. He complained of a "fullness" in his stomach and sore throat. He had fevers and chills but denies vomiting or diarrhea. He came to emergency room for evaluation was felt to have pneumonia. He was admitted to [facility] for ongoing care needs. He smoked from age [age] up to 4 packs per day. He has history of non-small cell lung cancer but does not know the stage. He reports having chemotherapy and radiation therapy at [facility] and follows with oncology there. He had chest and abdomen CT 05/24/2018 at [facility]. There was no evidence of recurrent malignancy seen in the chest. Abdominal CT showed no evidence of metastatic disease in the abdomen. 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 He has a diagnosis of COPD and wears oxygen 24/. He has had 2 thoracentesis procedures in the past but does not know definite results. Past Med Surg Social Fam HX - Past Medical History Medical history: cancer, CHF, COPD, diabetes, GERD, hyperlipidemia, hypertension, other Additional medical history: Lung cancer Psychiatric history: anxiety, depression - Past Surgical History Surgical History: sinus surgery Additional surgical history: patrial lung removed, 20 years ago, family unsure of reason, maybe scar tissue - Social History Smoking Status: Former smoker Smokeless Tobacco Status: No Alcohol use: none Drug use: none - Family History Father History Unknown: Yes Adopted: No Family Member Ethnicity: Non- Living Status: Hx Family Cardiac Disorders: No Hx Family Respiratory Disorders: Yes Hx Family Cancer: No Hx Family GI Disorders: No Hx Family Endocrine Disorder: No Hx Family Neuromuscular Disorders: No Hx Family Neurologic Disorders: No Hx Family HEENT Disorders: No Hx Family Autoimmune Disorders: No Internal Medicine - H&P: Meds Albuterol Neb [Proventil Neb] 2.5 mg IH Q4HR PRN 08/28/15 [History] Lovastatin 40 mg PO DAILY 08/28/15 [History] Omeprazole [PriLOSEC] 20 mg PO DAILY 08/28/15 [History] Tiotropium [Spiriva] 18 mcg IH DAILY 08/28/15 [History] Insulin Glargine [Lantus] 25 unit SQ HS 09/29/15 [History] Ibuprofen [Motrin] 600 mg PO Q8HR PRN 12/02/15 [History] Sennosides [Senna] 17.2 mg PO HS 05/25/16 [History] Albuterol Sulfate [Albuterol Inhaler] 2 puff IH Q6HR PRN #1 hfa.aer.ad 06/27/16 [Rx] Metoprolol XL (24 HR) Succ [Toprol Xl] 25 mg PO DAILY #30 tab.er.24h 05/06/17 [Rx] Bumetanide 2 mg PO DAILY 07/26/17 [History] Guaifenesin [Mucinex] 600 mg PO BID 07/26/17 [History] Potassium Chloride 10 meq PO BIDWM #60 tab.er.prt 07/28/17 [Rx] Amoxicillin/Clavulanate [Augmentin] 875 mg PO BIDWM 07/14/18 [History] Benzonatate 100 mg PO TID 07/14/18 [History] Furosemide [Lasix] 80 mg PO 07/14/18 [History] Nystatin [Nystatin Suspension] 100,000 unit PO 07/14/18 [History] Polyvinyl Alcohol [Artificial Tears] 1 drop RIGHT EYE QID 07/14/18 [History] Allergy/AdvReac Type Severity Reaction Status Date / Time No Known Allergies Allergy Verified 12/10/17 17:19 All Systems PM: A 10-system review of systems was performed and is negative for pertinent findings except as documented above in the HPI. Review of systems: Review of systems from his December 2017 [facility] hospitalization were reviewed and revised as below Gen.: His weight increased from 81.647 kg at the February 2015 [facility] hospitalization to admission weight of 102.058 kg December 2014. It is minimally decreased to 99.79 kg at present time. Cardiovascular: He denies [place] hypertension heart failure angina DVT or pulmonary embolus. Echocardiogram 07/04/2017 showed LVEF of 55-60%. There is indeterminate diastolic function reported. E to A ratio was 1.2. There was severe pulmonary hypertension with estimated RVSP 68 mmHg. There is mild tricuspid and pulmonic regurgitation seen. The interventricular septum and posterior wall thickness measurements were 1.12 and 0.83 cm respectively. Respiratory: As per history of present illness GI: He has no known disorder of his liver gallbladder or exocrine pancreas : There is no known hematuria dysuria or kidney stones Neurologic: No history of large distribution strokes or seizures. He does have severe hearing loss. Endocrine: He has been diagnosed with DM 2 approximately 2014 with his most recent hemoglobin A1c being 8.2% on 05/04/2018. He has hyperlipidemia. TSH was suppressed at 0.277 on 08/30/2015 but was normal at 1.947 on 07/14/2018. Hematology/oncology: There is no known blood disorders. He had lung cancer as per history of present illness. There are no other known malignancies. Psychiatric: He has major depressive disorder and panic attacks. [place] skeletal: He has DJD but no known gout or osteoporosis - Constitutional Vitals: Temp Pulse Resp BP Pulse Ox 97.9 F 98 16 116/69 97 07/15/18 07:43 07/15/18 07:43 07/15/18 07:43 07/15/18 07:43 07/15/18 07:43 Exam: Gen.: He is a well-developed obese male sitting on the side of bed wearing BiPAP who appears in no acute distress at present time HEENT: Head is atraumatic and normocephalic. Eyes: EOMI. There is no scleral icterus. Mouth: Mucosa is moist. Neck: Supple and nontender. There is no thyromegaly or adenopathy noted. Heart: Regular without murmurs gallops or ectopics. Lungs: He has slightly diminished breath sounds bilaterally. No wheezes crackles or egophony are heard. Abdomen: He has an umbilical hernia which is easily reducible. No masses or guarding are noted. Abdomen is nontender to palpation. Extremities: He has trace edema of the dorsum of the feet and lower anterior shins bilaterally. Dorsalis pedis and posttibial pulses are trace palpable. Neurologic: Mental status: He is able to answer a few questions but is a fair historian at best. He is hard of hearing. Cranial nerves: Smile is symmetric. Forehead wrinkles bilaterally. Tongue protrudes midline. EOMI. Motor: There is no pronator drift. Cerebellar: Finger to nose is intact bilaterally. Skin: Warm and dry Internal Med - H&P Results - Labs CBC & Chem 7: 07/14/18 17:21 07/14/18 17:21 Labs: Short CBC 07/14/18 Range/Units 17:21 WBC 7.0 (4.3-11.1) K/mcL Hgb 13.6 (12.9-16.9) g/dL Hct 42.4 (37.5-50.1) % Plt Count 192 (140-400) K/mcL Neutrophils # 4.8 (1.6-8.9) K/mcL BMP 07/14/18 17:21 Sodium 141 Potassium 3.3 L Chloride 97 L Carbon Dioxide 37 H BUN 10 Creatinine 0.82 Glucose 304 H Calcium 9.2 Cardiac Enzymes 07/14/18 Range/Units 17:21 Troponin I < 0.03 (< 0.04) ng/mL Liver Function 07/14/18 Range/Units 17:21 Total Bilirubin 0.3 (0.3-1.0) mg/dL AST 22 (13-39) Units/L ALT 23 (7-52) Units/L Alkaline Phosphatase 105 H (34-104) Units/L Albumin 3.8 (3.5-5.7) g/dL Urine 07/14/18 Range/Units 17:40 Urine Color Yellow (Yellow) Urine Clarity Clear (Clear) Urine pH 6.5 (5.0-8.0) pH Units Ur Specific [place] 1.010 (1.010-1.025) Urine Protein Negative (Neg-Trace) mg/dL Urine Glucose (UA) 500 H (Normal) mg/dL - ABG Interpretation ABG results: 07/14/18 23:57 ABG pH 7.35 ABG pCO2 65 H ABG pO2 123 H ABG HCO3 36 H ABG Total CO2 38 H ABG O2 Saturation 98 ABG Base Excess 8 H - Impressions ITS Impressions Chest X-Ray 07/14/18 17:31 IMPRESSION: Bilateral airspace opacification in the lung bases could represent pneumonia. Unchanged blunting of the costophrenic angles most likely representing scarring D/ / Donato Ruff MD / Donato Ruff MD Interpreting Provider: Donato Ruff MD
[2018-07-15] MEDS: 0.9 % Sodium Chloride 1,000 ML IVC SCH ×5 (10:15→15:49)
[2018-07-15] MEDS: Tiotropium 18 MCG inhalation IH SCH (10:35)
[2018-07-15] MEDS: Albuterol 2.5 MG/3 ML NEBULIZER IH PRN ×3 (10:35→23:13)
[2018-07-15] MEDS: Furosemide 40 MG/4 ML VIAL IVP SCH (11:47)
[2018-07-15] MEDS: Nystatin SUSP 5 ML UD.LIQ PO SCH ×3 (11:48→20:47)
[2018-07-15] MEDS: Isosorbide MONOnitrate (24 HR) 30 MG TAB.ER.24H PO SCH (11:48)
[2018-07-15] MEDS: Ibuprofen 600 MG TABLET PO PRN (16:31)
[2018-07-15] MEDS: cefTRIAXone 1,000 MG in Water for inj. (sterile) 20 ML 10 ML IVP SCH (16:31)
[2018-07-15] MEDS ORDERED: Azithromycin 500 MG in D5% in Water 250 ML IVPB SCH (19:00)
[2018-07-15] MEDS: Lactobacillus 1 EACH CAP.SPRINK PO SCH (20:45)
[2018-07-15] MEDS: Insulin DETEMIR 100 UNIT/ML X5UNITS SQ SCH (20:46)
[2018-07-15] MEDS: Sennosides 8.6 MG TABLET PO SCH (20:46)
[2018-07-16 05:48] LABS: Basophils % 0.6 %; Eosinophils # 0.3 K/mcL (0.0-0.6); Eosinophils % 3.9 %; Hematocrit 38.3 % (37.5-50.1); Hemoglobin 11.7 g/dL (12.9-16.9); Immature Granulocytes % 0.7 % (0-4); Lymphocytes # 1.5 K/mcL (0.6-4.6); Lymphocytes % 20.3 %; Mean Corpuscular HGB Conc 30.5 g/dL (31.6-35.5); Mean Corpuscular Hemoglobin 28.2 pg (28.0-33.3); Mean Corpuscular Volume 92.3 fL (83.0-100.0); Mean Platelet Volume 10.6 fL (9.4-12.4); Monocytes # 0.9 K/mcL (0.0-1.3); Monocytes % 11.7 %; Neutrophils # 4.6 K/mcL (1.6-8.9); Platelet Count 180 K/mcL (140-400); Red Blood Count 4.15 M/mcL (4.19-5.50); Red Cell Distribution Width 13.8 % (11.5-14.5); Segmented Neutrophils % 62.8 %
[2018-07-16 06:14] LABS: BUN/Creatinine Ratio 16 (6-26); Blood Urea Nitrogen 13 mg/dL (8-23); Calcium 8.8 mg/dL (8.6-10.3); Carbon Dioxide 41 mEq/L (23-29); Chloride 96 mEq/L (98-107); Glucose 238 mg/dL (70-105); Osmolality,Calculated 298 (280-300); Potassium 3.4 mEq/L (3.5-5.1); Sodium 140 mEq/L (136-145); eGFR For Non-African Americans > 60 (> 60)
[2018-07-16] MEDS: Ibuprofen 600 MG TABLET PO PRN ×2 (06:44→15:22)
[2018-07-16] MEDS: *HR* Enoxaparin 40 MG/0.4 ML SYRINGE SQ SCH (06:45)
[2018-07-16] MEDS ORDERED: NON-FORMULARY MEDICATION 1 EACH EACH (Furosemide [Lasix] 80 MG) PO SCH (09:00)
[2018-07-16] MEDS: Furosemide 40 MG/4 ML VIAL IVP SCH (09:05)
[2018-07-16] MEDS: Nystatin SUSP 5 ML UD.LIQ PO SCH ×4 (09:06→22:24)
[2018-07-16] MEDS: Artificial Tears SOLN 15 ML BOTTLE RIGHT EYE SCH ×4 (09:06→22:25)
[2018-07-16] MEDS: Lactobacillus 1 EACH CAP.SPRINK PO SCH ×2 (09:07→22:24)
[2018-07-16] MEDS: Isosorbide MONOnitrate (24 HR) 30 MG TAB.ER.24H PO SCH (09:07)
[2018-07-16] MEDS: Insulin LISPRO 300 UNITS/3 ML VIAL SQ SCH ×3 (09:10→17:26)
--- NOTE | 2018-07-16 10:30 | Internal Med Progress Note ---
Date of Encounter: 07/16/18 Time of Encounter: 10:20 - Assessment and plan (1) Community acquired pneumonia Current Visit: Yes Status: Acute Assessment and plan: July 16. Equivocal evidence. Continue Rocephin. He developed arm itching with infusion of azithromycin and it was discontinued. Will start oral doxycycline. Anticipate discharge home tomorrow if stable. Qualifiers: Laterality: left Lung location: lower lobe of lung Qualified Code(s): J18.1 - Lobar pneumonia, unspecified organism (2) Hypokalemia Current Visit: Yes Status: Acute Assessment and plan: July 16. Potassium level slightly improved to 3.4. Continue potassium supple mentation. Recheck labs in a.m. (3) Type 2 diabetes mellitus Current Visit: No Status: Chronic Assessment and plan: July 16. Hemoglobin A1c 8.2% on 05/04/2018. Continue Lantus/Levemir and Accu- Cheks with SSI. 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 Clinically improved. BN peptide has decreased to 114. Continue Lopressor and IV Lasix. Qualifiers: Qualified Code(s): I50.33 - Acute on chronic diastolic (congestive) heart failure (5) Lung cancer Current Visit: No Status: Chronic Assessment and plan: July 16. As per [facility] oncologists. Qualifiers: Laterality: right Lung location: unspecified part of lung Qualified Code(s): C34.91 - Malignant neoplasm of unspecified part of right bronchus or lung (6) Anemia Current Visit: Yes Status: Acute Assessment and plan: July 16. Hemoglobin has decreased to 11.7. Order anemia testing in a.m. Qualifiers: Anemia type: unspecified type Qualified Code(s): D64.9 - Anemia, unspecified - Subjective Interval history: July 16. He has no new complaints and feels better. - Constitutional Vitals: Temp Pulse Resp BP Pulse Ox 98.1 F 89 20 120/77 97 07/16/18 07:29 07/16/18 07:29 07/16/18 07:29 07/16/18 07:29 07/16/18 07:29 Exam: He is resting comfortably on the side of the bed and appears in no acute distress. His affect is bright and cheerful. Lungs show very minimal wheezing. I reviewed his medications and lab results. Internal Medicine: Result - Labs CBC & Chem 7: 07/16/18 05:03 07/16/18 05:03 Labs: Short CBC 07/16/18 Range/Units 05:03 WBC 7.3 (4.3-11.1) K/mcL Hgb 11.7 L D (12.9-16.9) g/dL Hct 38.3 (37.5-50.1) % Plt Count 180 (140-400) K/mcL Neutrophils # 4.6 (1.6-8.9) K/mcL BMP 07/16/18 05:03 Sodium 140 Potassium 3.4 L Chloride 96 L Carbon Dioxide 41 H* BUN 13 Creatinine 0.79 Glucose 238 H Calcium 8.8 - ABG Interpretation ABG results: ABG ABG pH 7.35 pH Units (7.32-7.45) 07/14/18 23:57 ABG pCO2 65 mmHg (35-45) H 07/14/18 23:57 ABG pO2 123 mmHg (85-104) H 07/14/18 23:57 ABG O2 Saturation 98 % (95-98) 07/14/18 23:57 PT/INR, D-dimer PT 13.0 Seconds (9.4-12.1) H 07/14/18 17:21 Consult Discharge Plan - Plan Referrals: Nancy Gama, [employer] [Primary Care Provider] - 1 week
[2018-07-16] MEDS: Tiotropium 18 MCG inhalation IH SCH (10:47)
[2018-07-16] MEDS: Albuterol 2.5 MG/3 ML NEBULIZER IH PRN ×2 (10:47→23:19)
[2018-07-16] MEDS: Doxycycline 100 MG CAPSULE PO SCH ×2 (11:53→22:24)
[2018-07-16] MEDS: cefTRIAXone 1,000 MG in Water for inj. (sterile) 20 ML 10 ML IVP SCH (17:24)
[2018-07-16] MEDS: Sennosides 8.6 MG TABLET PO SCH (22:24)
[2018-07-16] MEDS: Insulin DETEMIR 100 UNIT/ML X5UNITS SQ SCH (22:25)
[2018-07-17 06:12] LABS: Basophils % 0.3 %; Eosinophils # 0.2 K/mcL (0.0-0.6); Eosinophils % 3.6 %; Hematocrit 42.1 % (37.5-50.1); Immature Granulocytes % 0.3 % (0-4); Lymphocytes # 1.4 K/mcL (0.6-4.6); Lymphocytes % 20.9 %; Mean Corpuscular HGB Conc 30.9 g/dL (31.6-35.5); Mean Corpuscular Hemoglobin 28.3 pg (28.0-33.3); Mean Corpuscular Volume 91.5 fL (83.0-100.0); Mean Platelet Volume 10.7 fL (9.4-12.4); Monocytes # 0.7 K/mcL (0.0-1.3); Monocytes % 9.8 %; Neutrophils # 4.3 K/mcL (1.6-8.9); Platelet Count 203 K/mcL (140-400); Red Cell Distribution Width 13.4 % (11.5-14.5); Segmented Neutrophils % 65.1 %
[2018-07-17] MEDS: Albuterol 2.5 MG/3 ML NEBULIZER IH PRN (08:41)
[2018-07-17] MEDS: Tiotropium 18 MCG inhalation IH SCH (08:42)
[2018-07-17] MEDS: *HR* Enoxaparin 40 MG/0.4 ML SYRINGE SQ SCH (09:03)
[2018-07-17] MEDS: Insulin LISPRO 300 UNITS/3 ML VIAL SQ SCH ×2 (09:07→12:17)
[2018-07-17] MEDS: Artificial Tears SOLN 15 ML BOTTLE RIGHT EYE SCH ×2 (09:07→12:17)
[2018-07-17] MEDS: Furosemide 40 MG/4 ML VIAL IVP SCH (09:08)
[2018-07-17] MEDS: Isosorbide MONOnitrate (24 HR) 30 MG TAB.ER.24H PO SCH (09:08)
[2018-07-17] MEDS: Nystatin SUSP 5 ML UD.LIQ PO SCH ×2 (09:08→12:17)
[2018-07-17] MEDS: Ibuprofen 600 MG TABLET PO PRN (09:08)
[2018-07-17] MEDS: Lactobacillus 1 EACH CAP.SPRINK PO SCH (09:08)
[2018-07-17] MEDS: Doxycycline 100 MG CAPSULE PO SCH (09:08)
[2018-07-17 09:30] LABS: % Iron Saturation 19 % (20-55); Ferritin 152 ng/mL (20-250); Iron 58 mcg/dL (65-175); Transferrin 217 mg/dL (203-362)
[2018-07-17 09:32] LABS: Folate 14.1 ng/mL (3.0-16.0)
[2018-07-17 10:41] LABS: BUN/Creatinine Ratio 19 (6-26); Blood Urea Nitrogen 15 mg/dL (8-23); Calcium 9.3 mg/dL (8.6-10.3); Carbon Dioxide 40 mEq/L (23-29); Chloride 96 mEq/L (98-107); Glucose 171 mg/dL (70-105); Osmolality,Calculated 301 (280-300); Potassium 3.6 mEq/L (3.5-5.1); Sodium 143 mEq/L (136-145); eGFR For Non-African Americans > 60 (> 60)
[2018-07-17 12:05] VITALS: BP 104/70
--- NOTE | 2018-07-17 14:42 | Discharge Summary ---
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 insulin use: with longterm use Diabetes mellitus complication status: without complication Qualified Code(s): E11.9 - Type 2 diabetes mellitus without complications; Z79.4 - deicer element winder machine (current) use of insulin (4) Lung cancer Priority: Secondary Status: Chronic Qualifiers: Laterality: right Lung location: unspecified part of lung Qualified Code(s): C34.91 - Malignant neoplasm of unspecified part of right bronchus or lung (5) Anemia Priority: Secondary Status: Acute Qualifiers: Anemia type: unspecified type Qualified Code(s): D64.9 - Anemia, unspecified (6) CHF (congestive heart failure) Priority: Secondary Status: Acute Qualifiers: Heart failure type: diastolic Heart failure chronicity: chronic Qualified Code(s): I50.32 - Chronic diastolic (congestive) heart failure Hospital course: Mr. Tamez is a 63 year old male who came to emergency room complaining of increased dyspnea for approximately one week. He had coughing with minimal productivity. He complained of a "fullness" in his stomach and sore throat. He had fevers and chills but denies vomiting or diarrhea. He came to emergency room for evaluation and was felt to have pneumonia. He was admitted to [facility] for ongoing care needs. Initial orders were written by the emergency room physician. I saw him on July 15 and performed a history and physical. He was started empirically on Rocephin and Zithromax. He developed pruritus after Zithromax infusion was started the second day so it was discontinued and he was placed on oral doxycycline. He had clinical improvement with less dyspnea by the end of hospitalization. He will continue with oral antibiotic and probiotic for 3 additional days at discharge. He required BiPAP almost continuously the first 24 hours of hospitalization for respiratory insufficiency. He improved and did not require additional BiPAP use after the second hospital day. Satisfactory oxygenation was maintained using oxygen per nasal cannula. Supplemental potassium was given and hypokalemia resolved. He was started on low-dose Lasix and Imdur. Toprol was continued. BN peptide improved to normal range at 54 on day of discharge. Records from [facility] were obtained. 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 He was not felt to be a surgical candidate. He received concurrent chemoradiation therapy with weekly carboplatin and Taxol with external beam XRT completed on 06/10/2015. He continues to follow at the cancer Center there. There were no other new problems and on July 17 he was stable for discharge home. He will follow with his PCP Nancy Gama CNP within 1 week. - Time Spent with Patient Total time spent providing and/or coordinating discharge services: - Discharge Medications Prescriptions: New Cefuroxime PO [Ceftin] 500 mg PO Q12HR #6 tablet Doxycycline 100 mg PO BID #6 capsule Isosorbide MONOnitrate (24 HR) [Imdur] 30 mg PO DAILY #30 tab.er.24h Lactobacillus [Culturelle] 1 each PO BID #6 cap.sprink Potassium Chloride 20 meq PO BIDWM #14 tab.er.prt Continue Albuterol Neb [Proventil Neb] 2.5 mg IH Q4HR PRN PRN Reason: Shortness Of Breath/Wheezing Omeprazole [PriLOSEC] 40 mg PO DAILY Tiotropium [Spiriva] 18 mcg IH DAILY Lovastatin 40 mg PO DAILY Insulin Glargine [Lantus] 25 unit SQ HS Ibuprofen [Motrin] 600 mg PO Q8HR PRN PRN Reason: Pain Sennosides [Senna] 17.2 mg PO HS Albuterol Sulfate [Albuterol Inhaler] 2 puff IH Q6HR PRN #1 hfa.aer.ad PRN Reason: Wheezing Metoprolol XL (24 HR) Succ [Toprol Xl] 25 mg PO DAILY #30 tab.er.24h Guaifenesin [Mucinex] 600 mg PO BID Bumetanide 1 mg PO DAILY Benzonatate 100 mg PO TID Nystatin [Nystatin Suspension] 100,000 unit PO QID Polyvinyl Alcohol [Artificial Tears] 1 drop RIGHT EYE QID Aspirin 81 mg PO DAILY Docusate Sodium [Dulcolax Stool Softener] 100 mg PO BID PRN PRN Reason: Constipation Nystatin POWDER [Nystop] 1 appl TP BID Discontinued Potassium Chloride 10 meq PO BIDWM #60 tab.er.prt Amoxicillin/Clavulanate [Augmentin] 875 mg PO BIDWM Furosemide [Lasix] 80 mg PO DAILY Potassium Chloride [Klor-Con 10] 10 meq PO DAILY Home Medications: Albuterol Neb [Proventil Neb] 2.5 mg IH Q4HR PRN 08/28/15 [History] Lovastatin 40 mg PO DAILY 08/28/15 [History] Omeprazole [PriLOSEC] 40 mg PO DAILY 08/28/15 [History] Tiotropium [Spiriva] 18 mcg IH DAILY 08/28/15 [History] Insulin Glargine [Lantus] 25 unit SQ HS 09/29/15 [History] Ibuprofen [Motrin] 600 mg PO Q8HR PRN 12/02/15 [History] Sennosides [Senna] 17.2 mg PO HS 05/25/16 [History] Albuterol Sulfate [Albuterol Inhaler] 2 puff IH Q6HR PRN #1 hfa.aer.ad 06/27/16 [Rx] Metoprolol XL (24 HR) Succ [Toprol Xl] 25 mg PO DAILY #30 tab.er.24h 05/06/17 [Rx] Bumetanide 1 mg PO DAILY 07/26/17 [History] Guaifenesin [Mucinex] 600 mg PO BID 07/26/17 [History] Benzonatate 100 mg PO TID 07/14/18 [History] Nystatin [Nystatin Suspension] 100,000 unit PO QID 07/14/18 [History] Polyvinyl Alcohol [Artificial Tears] 1 drop RIGHT EYE QID 07/14/18 [History] Aspirin 81 mg PO DAILY 07/15/18 [History] Docusate Sodium [Dulcolax Stool Softener] 100 mg PO BID PRN 07/15/18 [History] Nystatin POWDER [Nystop] 1 appl TP BID 07/15/18 [History] Cefuroxime PO [Ceftin] 500 mg PO Q12HR #6 tablet 07/17/18 [Rx] Doxycycline 100 mg PO BID #6 capsule 07/17/18 [Rx] Isosorbide MONOnitrate (24 HR) [Imdur] 30 mg PO DAILY #30 tab.er.24h 07/17/18 [Rx] Lactobacillus [Culturelle] 1 each PO BID #6 cap.sprink 07/17/18 [Rx] Potassium Chloride 20 meq PO BIDWM #14 tab.er.prt 07/17/18 [Rx] Allergies/Adverse Reactions: Allergy/AdvReac Type Severity Reaction Status Date / Time No Known Allergies Allergy Verified 12/10/17 17:19 Date of admission: 07/14/18 19:12 Primary care physician: Nancy Gama CNP Consults: 07/14/18 20:09 Consult to Nurse Navigator [CONS] Routine Comment: - Constitutional Vitals: Temp Pulse Resp BP Pulse Ox 98.3 F 100 16 104/70 92 07/17/18 10:00 07/17/18 10:00 07/17/18 10:00 07/17/18 10:00 07/17/18 10:00 - Patient Status Disposition: Home, Self-Care Condition: Fair - Discharge Instructions Follow Up With: Nancy Gama CNP [Primary Care Provider] - 1 week Additional Instructions: May go home by ambulance - Diet and Activity Activity: resume usual activities as tolerated, wear oxygen at all times Diet: advance to your usual diet (May go home by ambulance)
--- NOTE | 2018-07-17 21:09 | Electrocardiograph Report ---
[address] [address] Test Date: 2018-07-14 Pat Name: Dru Tamez Department: EDP-11 Room: [facility] Gender: M Lei Seller: : 1955 Requested By: Britni Fernandez Order Number: [id number] Reading MD: Ynes Sánchez Measurements Intervals [place] Rate: 123 P: 58 AL: 139 QRS: 207 QRSD: 93 T: 61 QT: 330 QTc: 472 Interpretive Statements Sinus tachycardia Right axis deviation Probable left atrial enlargement Probable right ventricular hypertrophy Poor R-wave progression Electronically Signed On 07-17-2018 21:07:50 EDT by Ynes Sánchez
== END 2018-07-17 16:04 | disposition home or self-care (01) ==
LOC: EMEROOPIK 17:09 → INPPIK 17:09
PROVIDERS: ADMIT Internal Medicine; ATTEND Internal Medicine

== ENCOUNTER 2018-08-14 15:33 | Observation (INO) ==
--- NOTE | 2018-08-14 15:43 | Emergency Department Note ---
Disposition Clinical Impression: Acute exacerbation of chronic obstructive airways disease CHF (congestive heart failure) Qualifiers: Heart failure type: unspecified Heart failure chronicity: chronic Qualified Code(s): I50.9 - Heart failure, unspecified Disposition: Admitted As Inpatient Condition: Good Referrals: Nancy Gama CNP [Primary Care Provider] - SOB HPI - General Chief Complaint: ED Shortness of Breath/Dyspnea Stated Complaint: Short of breath for a while Time Seen by Provider: 08/14/18 15:42 Source: patient, EMS Mode of arrival: EMS Limitations: no limitations Nursing Notes Reviewed: Yes Vital Signs Reviewed: Yes - History of Present Illness Patient presents to the ED via EMS complaining of difficulty breathing. He states it has been going on for a few weeks and it has been getting progressively worse causing him to call 911 today. He reports a cough that is productive of white, green and yellow sputum. He has a slight sore throat. He says he has some discomfort in his chest but this is from the phlegm that he cannot bring up. He denies any rhinorrhea or nasal congestion. He does complain of a mild headache. He reports subjective fever and chills. He has abdominal pain is states is chronic for 6 months and is from his hernia. No nausea, vomiting or diarrhea. Reports his legs always swollen and he is not aware of any change recently. He has a history of COPD and squamous cell lung cancer which she underwent chemoradiation for a few years ago. He wears home oxygen at 2 L and reports she has been compliant with this. He states he ran out of one of his inhalers 2 days ago. His other inhaler, "the reyes 1" he last used 5 hours ago. He last did a nebulizer treatment around noon. Records show he was admitted here in July for 4 days for pneumonia. He states he saw his PCP a few days after that and he thinks she gave him more antibiotics. He is not currently on antibiotics or steroids. He states he felt better for about a week after his last discharge but then started feeling bad again with progressive worsening of symptoms. - Related Data Home Medications Medication Instructions Recorded Confirmed Albuterol Neb [Proventil Neb] 2.5 mg IH Q4HR PRN 08/28/15 08/14/18 Lovastatin 40 mg PO DAILY 08/28/15 08/14/18 Omeprazole [PriLOSEC] 40 mg PO DAILY 08/28/15 08/14/18 Tiotropium [Spiriva] 18 mcg IH DAILY 08/28/15 08/14/18 Insulin Glargine [Lantus] 25 unit SQ HS 09/29/15 08/14/18 Sennosides [Senna] 17.2 mg PO HS 05/25/16 08/14/18 Bumetanide 1 mg PO DAILY 07/26/17 08/14/18 Polyvinyl Alcohol [Artificial 1 drop RIGHT EYE QID 07/14/18 08/14/18 Tears] Aspirin 81 mg PO DAILY 07/15/18 08/14/18 Docusate Sodium [Dulcolax Stool 100 mg PO BID PRN 07/15/18 08/14/18 Softener] Nystatin POWDER [Nystop] 1 appl TP BID 07/15/18 08/14/18 Previous Rx's Medication Instructions Recorded Albuterol Sulfate [Albuterol 2 puff IH Q6HR PRN #1 hfa.aer.ad 06/27/16 Inhaler] Metoprolol XL (24 HR) Succ [Toprol 25 mg PO DAILY #30 tab.er.24h 05/06/17 Xl] Isosorbide MONOnitrate (24 HR) 30 mg PO DAILY #30 tab.er.24h 07/17/18 [Imdur] Lactobacillus [Culturelle] 1 each PO BID #6 cap.sprink 07/17/18 Potassium Chloride 20 meq PO BIDWM #14 tab.er.prt 07/17/18 Allergies Allergy/AdvReac Type Severity Reaction Status Date / Time No Known Allergies Allergy Verified 12/10/17 17:19 Constitutional: Reports: fever (subjective), chills Eyes: Denies: eye pain, eye discharge, vision change ENT ED: Reports: throat pain (mild). Denies: ear pain, dental pain, hearing loss, epistaxis, congestion, dysphagia Cardiovascular: Reports: chest pain (tightness "from phlegm"). Denies: palpitations, dyspnea on exertion, edema, syncope Respiratory: Reports: cough, dyspnea, sputum production Gastrointestinal: Reports: abdominal pain (chronic from hernia). Denies: nausea, vomiting, diarrhea, constipation, hematemesis, melena, hematochezia Genitourinary: Denies: urgency, dysuria, frequency, hematuria Musculoskeletal: Denies: back pain, neck pain, arthralgia, myalgia Integumentary: Denies: rash, abrasion, lesions Neurological: Denies: headache, weakness, numbness, paresthesias, confusion, abnormal gait, vertigo Psychiatric: Denies: anxiety, depression, suicidal thoughts, homicidal thoughts, auditory hallucinations, visual hallucinations Endocrine: Denies: fatigue Hematological/Lymphatic: Denies: easy bleeding, easy bruising Allergic/Immunologic: Denies: facial swelling, urticaria Past Medical History - Past Medical History Medical history: Reports: cancer, CHF, COPD, diabetes, GERD, hyperlipidemia, hypertension, other Surgical history: Reports: sinus surgery Psychiatric history: Reports: anxiety, depression - Social History Smoking Status: Former smoker Smokeless Tobacco Status: No Alcohol use: Reports: none Drug use: Reports: none Physical Exam - General Limitations: no limitations, other (hard of hearing) General appearance: alert, in no apparent distress, obese - Head Head exam: atraumatic, normocephalic, normal inspection - Eye Eye exam: Present: normal appearance, PERRL, EOMI - ENT ENT exam: normal exam, normal oropharynx, mucous membranes moist - Neck Neck exam: Present: normal inspection, full ROM, trachea midline - Chest Chest inspection: Present: normal inspection, symmetric chest wall rise, other (non-tender soft tissue mass above L clavicle) - Respiratory Respiratory exam: Absent: respiratory distress, accessory muscle use - Expanded Respiratory Exam Location: rhonchi: Left, Lower, decreased breath sounds: Left, Right, Upper, Lower - Cardiovascular Cardiovascular exam: Present: regular rate, normal rhythm, normal heart sounds - Abdominal Exam Abdominal exam: Present: soft, Non-Tender, hernia (umbilical). Absent: tenderness, distention, guarding, rebound, rigidity - Extremities Exam Extremities exam: Present: normal inspection, full ROM, pedal edema (trace to 1+ bilat). Absent: tenderness - Neurological Exam Neurological exam: Present: alert, oriented X3 - Psychiatric Psychiatric exam: Present: normal affect, normal mood - Skin Skin exam: Present: warm, dry, intact, normal color Course Course Narrative: Patient presents to the ED complaining of progressively worsening shortness of breath over the past few weeks with a productive cough in the setting of history of COPD and previously treated right-sided lung cancer. At the end of my interview and exam he asked if he was going to be admitted. I told him it was too soon to tell and when I asked why he wanted to know he states he was hoping to be admitted because he is too weak to be at home. Updated medication list was obtained from the pharmacy which shows that his PCP did order an additional 5 day supply of doxycycline and cefuroxime on 07/21 which was his presumed follow-up after his admission from 07/14 to 07/17. The only inhaler listed on his list is Spiriva. That was most recently filled on August 03. - Reevaluation(s) Reevaluation #1: Chest x-ray shows possibility of some right-sided pneumonia although he has a past in this area from his known lung cancer as well. Laboratory studies showed a normal white count, negative troponin and normal lactic acid. Carbon dioxide is elevated at 41 but this appears to be near his baseline from his last discharge. BNP is once again of elevated over 200. On reassessment he states he is coughing more now after the breathing treatment. He has increased aeration now with some wheezing. Will give another neb treatment. Will start antibiotics and steroids. Patient is willing and desires to be admitted I feel he would benefit from a brief inpatient stay. I spoken to the hospital some Dr. Armando camarillo who has agreed to accept him. Time: 17:09 Vital Signs Temperature 98.4 F 08/14/18 15:37 Pulse Rate 111 08/14/18 15:37 Respiratory Rate 20 08/14/18 15:37 Blood Pressure 155/98 08/14/18 15:37 O2 Sat by Pulse Oximetry 96 08/14/18 15:37 Temperature 98.4 F 08/14/18 15:37 Pulse Rate 105 08/14/18 16:30 Respiratory Rate 18 08/14/18 16:30 Blood Pressure 140/87 08/14/18 16:30 O2 Sat by Pulse Oximetry 95 08/14/18 16:30 Oxygen Delivery Oxygen Delivery Nasal Cannula Shortness of Breath/Dyspnea - Differential Diagnosis Likely: acute exacerbation of chronic obstructive airways disease, congestive heart failure, pneumonia - Medical Records Medical records reviewed: Yes I reviewed the patient's medical records. - Lab Data Lab results reviewed: Yes I reviewed the patient's lab results. Result diagrams: 08/14/18 16:20 08/14/18 16:20 Lab Results 04/12/2508/14/18 08/14/18 Range/Units 16:20 16:20 16:20 WBC 7.4 (4.3-11.1) K/mcL RBC 4.47 (4.19-5.50) M/mcL Hgb 12.9 (12.9-16.9) g/dL Hct 40.4 (37.5-50.1) % MCV 90.4 (83.0-100.0) fL MCH 28.9 (28.0-33.3) pg MCHC 31.9 (31.6-35.5) g/dL RDW 13.2 (11.5-14.5) % Plt Count 181 (140-400) K/mcL MPV 10.0 (9.4-12.4) fL Immature Gran % 0.3 (0-4) % Seg Neutrophils % 71.7 % Lymphocytes % 14.4 % Monocytes % 10.2 % Eosinophils % 3.0 % Basophils % 0.4 % Neutrophils # 5.3 (1.6-8.9) K/mcL Lymphocytes # 1.1 (0.6-4.6) K/mcL Monocytes # 0.8 (0.0-1.3) K/mcL Eosinophils # 0.2 (0.0-0.6) K/mcL Basophils # 0.0 (0.0-0.2) K/mcL Sodium 142 (136-145) mEq/L Potassium 3.8 (3.5-5.1) mEq/L Chloride 98 (98-107) mEq/L Carbon Dioxide 41 H* (23-29) mEq/L BUN 13 (8-23) mg/dL Creatinine 0.76 (0.70-1.30) mg/dL Est GFR ( Amer) > 60 (> 60) Est GFR (Non-Af Amer) > 60 (> 60) BUN/Creatinine Ratio 17 (6-26) Glucose 212 H (70-105) mg/dL Calculated Osmolality 300 (280-300) Lactic Acid 1.2 (0.5-2.2) mmol/L Calcium 9.3 (8.6-10.3) mg/dL Troponin I < 0.03 (< 0.04) ng/mL B-Natriuretic Peptide (Less than 100) pg/mL 08/14/18 Range/Units 16:20 WBC (4.3-11.1) K/mcL RBC (4.19-5.50) M/mcL Hgb (12.9-16.9) g/dL Hct (37.5-50.1) % MCV (83.0-100.0) fL MCH (28.0-33.3) pg MCHC (31.6-35.5) g/dL RDW (11.5-14.5) % Plt Count (140-400) K/mcL MPV (9.4-12.4) fL Immature Gran % (0-4) % Seg Neutrophils % % Lymphocytes % % Monocytes % % Eosinophils % % Basophils % % Neutrophils # (1.6-8.9) K/mcL Lymphocytes # (0.6-4.6) K/mcL Monocytes # (0.0-1.3) K/mcL Eosinophils # (0.0-0.6) K/mcL Basophils # (0.0-0.2) K/mcL Sodium (136-145) mEq/L Potassium (3.5-5.1) mEq/L Chloride (98-107) mEq/L Carbon Dioxide (23-29) mEq/L BUN (8-23) mg/dL Creatinine (0.70-1.30) mg/dL Est GFR ( Amer) (> 60) Est GFR (Non-Af Amer) (> 60) BUN/Creatinine Ratio (6-26) Glucose (70-105) mg/dL Calculated Osmolality (280-300) Lactic Acid (0.5-2.2) mmol/L Calcium (8.6-10.3) mg/dL Troponin I (< 0.04) ng/mL B-Natriuretic Peptide 261 H (Less than 100) pg/mL - Radiology Data Radiology results reviewed: Yes I reviewed the patient's radiology results. ITS Impressions Chest X-Ray 08/14/18 16:05 IMPRESSION: Pulmonary edema remains with small bilateral pleural effusions. There is question of a developing opacity in the right mid lung, consider pneumonia. Focal right hilar opacity is re-identified. Consider CT imaging for further evaluation. If CT is not pursued at this time, follow-up CT is suggested to ensure stability of the right hilar appearance when compared to the 03/28/2017 CT exam. D/ / 08/14/2018 16:24:13 Matthew Jeffries MD / federico Interpreting Provider: Matthew Jeffries MD - EKG Data EKG attestation: Yes I reviewed and interpreted this EKG. EKG shows normal: Reports: sinus rhythm Rate: Reports: normal Rhythm: Reports: NSR [place]/QRS: Reports: normal Interpretation: Reports: no acute changes, normal EKG
[2018-08-14] MEDS ORDERED: Ipratropium/Albuterol Neb 3 ML IH ONE ×2 (16:05→17:05)
[2018-08-14 16:26] LABS: Basophils % 0.4 %; Eosinophils # 0.2 K/mcL (0.0-0.6); Hematocrit 40.4 % (37.5-50.1); Hemoglobin 12.9 g/dL (12.9-16.9); Immature Granulocytes % 0.3 % (0-4); Lymphocytes # 1.1 K/mcL (0.6-4.6); Lymphocytes % 14.4 %; Mean Corpuscular HGB Conc 31.9 g/dL (31.6-35.5); Mean Corpuscular Hemoglobin 28.9 pg (28.0-33.3); Mean Corpuscular Volume 90.4 fL (83.0-100.0); Monocytes # 0.8 K/mcL (0.0-1.3); Monocytes % 10.2 %; Neutrophils # 5.3 K/mcL (1.6-8.9); Platelet Count 181 K/mcL (140-400); Red Blood Count 4.47 M/mcL (4.19-5.50); Red Cell Distribution Width 13.2 % (11.5-14.5); Segmented Neutrophils % 71.7 %
[2018-08-14 16:47] LABS: BUN/Creatinine Ratio 17 (6-26); Blood Urea Nitrogen 13 mg/dL (8-23); Calcium 9.3 mg/dL (8.6-10.3); Carbon Dioxide 41 mEq/L (23-29); Chloride 98 mEq/L (98-107); Glucose 212 mg/dL (70-105); Osmolality,Calculated 300 (280-300); Potassium 3.8 mEq/L (3.5-5.1); Sodium 142 mEq/L (136-145); Troponin I < 0.03 ng/mL (< 0.04); eGFR For Non-African Americans > 60 (> 60)
[2018-08-14] MEDS ORDERED: methylPREDNISolone 125 MG/2 ML VIAL IVP ONE (17:04)
[2018-08-14] MEDS ORDERED: Doxycycline 100 MG in 0.9 % Sodium Chloride Mini Bag 100 ML IVPB ONE (17:04)
[2018-08-14] MEDS ORDERED: Naloxone 0.4 MG/ML INJ IVP PRN ×2 (17:10→20:35)
[2018-08-14] MEDS: Ipratropium/Albuterol Neb 3 ML IH SCH ×2 (17:38→20:08)
[2018-08-14] MEDS ORDERED: *HR* Dextrose 50 % in Water (Syg) 50 ML SYRINGE IVP PRN (20:35)
[2018-08-14] MEDS ORDERED: Dextrose Gel 15 GM/37.5 ML TUBE PO PRN ×2 (20:35)
[2018-08-14] MEDS ORDERED: D5% in Water 1,000 ML IVC PRN (20:35)
[2018-08-14] MEDS ORDERED: Insulin LISPRO 300 UNITS/3 ML VIAL SQ SCH (21:00)
[2018-08-14] MEDS ORDERED: Insulin DETEMIR 100 UNIT/ML per UNIT SQ SCH (21:00)
[2018-08-14] MEDS ORDERED: *HR* Dextrose 50 % in Water (Vial) 50 ML VIAL IVP PRN (21:30)
[2018-08-14] MEDS ORDERED: Mag Hydrox/Al Hydrox/Simeth 30 ML UDC PO PRN (21:50)
[2018-08-14] MEDS: Artificial Tears SOLN 15 ML BOTTLE RIGHT EYE SCH (22:10)
[2018-08-14] MEDS: Sennosides 8.6 MG TABLET PO SCH (22:10)
[2018-08-14] MEDS: Acetaminophen 325 MG TABLET PO PRN (22:10)
[2018-08-14] MEDS: Insulin LISPRO 300 UNITS/3 ML VIAL SQ SCH (22:11)
[2018-08-14] MEDS: Nystatin POWDER 30 GM BOTTLE TP SCH (22:15)
[2018-08-15] MEDS: Ipratropium/Albuterol Neb 3 ML IH SCH ×3 (00:16→08:21)
[2018-08-15] MEDS: Insulin LISPRO 300 UNITS/3 ML VIAL SQ SCH ×4 (05:49→18:04)
[2018-08-15] MEDS: Aspirin 81 MG TAB.CHEW PO SCH (08:01)
[2018-08-15] MEDS: Isosorbide MONOnitrate (24 HR) 30 MG TAB.ER.24H PO SCH (08:01)
[2018-08-15] MEDS: Artificial Tears SOLN 15 ML BOTTLE RIGHT EYE SCH ×4 (08:01→20:39)
[2018-08-15] MEDS: Tiotropium 18 MCG inhalation IH SCH (08:21)
[2018-08-15] MEDS ORDERED: Bumetanide 1 MG TABLET PO SCH (09:00)
[2018-08-15] MEDS ORDERED: Metoprolol XL (24 HR) Succ 25 MG TAB.ER.24H PO SCH (09:00)
[2018-08-15] MEDS: Nystatin POWDER 30 GM BOTTLE TP SCH ×2 (09:05→20:40)
[2018-08-15] MEDS: Acetaminophen 325 MG TABLET PO PRN (10:04)
--- NOTE | 2018-08-15 10:25 | Internal Med History&Physical ---
Date of Encounter: 08/15/18 Time of Encounter: 10:00 Assessment and Plan (1) Acute exacerbation of chronic obstructive airways disease Current visit: Yes Status: Acute He was given IV doxycycline in emergency room. I will start him on Rocephin and Zithromax with lactobacillus. Continue Spiriva and albuterol. Add Symbicort. He was previously on Advair but it was discontinued for unknown reasons. (2) CHF (congestive heart failure) Current visit: Yes Status: Acute BN peptide elevated at 261 in emergency room. He will be given additional Bumex and higher dose Toprol-XL. Recheck labs in a.m. Qualifiers: Heart failure type: unspecified Heart failure chronicity: chronic Qualified Code(s): I50.9 - Heart failure, unspecified (3) HTN (hypertension) Current visit: No Status: Chronic Increase Toprol-XL as above. Qualifiers: Hypertension type: essential hypertension Qualified Code(s): I10 - Essential (primary) hypertension (4) Type 2 diabetes mellitus Current visit: No Status: Chronic Hemoglobin A1c was 8.2% on 05/04/2018. Recheck in a.m. Qualifiers: Diabetes mellitus chcf insulin use: with chcf use Diabetes mellitus complication status: without complication Qualified Code(s): E11.9 - Type 2 diabetes mellitus without complications; Z79.4 - half-way (current) use of insulin Internal Medicine - H&P: HPI Chief complaint: Cough and dyspnea Admitted From: Emergency Dept Plans for Post Hospital Care: Home History of present illness: Mr. Tamez is a 63 year old male came to emergency room with 2-3 day history of increased cough and dyspnea. He reports the cough is productive occasionally of yellow/green sputum. In emergency room and felt to have exacerbation of COPD and CHF. He was admitted to [facility] floor for ongoing care needs. He smoked from age [age] up to 4 packs per day. 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 He was not felt to be a surgical candidate. He received concurrent chemoradiation therapy with weekly carboplatin and Taxol with external beam XRT completed on 06/10/2015. He had chest and abdomen CT 05/24/2018 at [facility]. There was no evidence of recurrent malignancy seen in the chest. Abdominal CT showed no evidence of metastatic disease in the abdomen. 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 He has a diagnosis of COPD and wears oxygen 24/. He has had 2 thoracentesis procedures in the past but does not know definite results. He states his breathing has improved since admission but he does not feel back to his baseline yet. He denies ND hypertension heart failure angina DVT or pulmonary embolus. Echo cardiogram 07/04/2017 showed LVEF of 55-60%. There is indeterminate diastolic function reported. E to A ratio was 1.2. There was severe pulmonary hypertension with estimated RVSP 68 mmHg. There was mild tricuspid and pulmonic regurgitation seen. The interventricular septum and posterior wall thickness measurements were 1.12 and 0.83 cm respectively. He ambulates very little at home and uses a motorized scooter. He denies missing any of his cardiovascular medications. Past Med Surg Social Fam HX - Past Medical History Medical history: cancer, CHF, COPD, diabetes, GERD, hyperlipidemia, hypertension, other Additional medical history: Lung cancer Psychiatric history: anxiety, depression - Past Surgical History Surgical History: sinus surgery Additional surgical history: patrial lung removed, 20 years ago, family unsure of reason, maybe scar tissue - Social History Smoking Status: Former smoker Smokeless Tobacco Status: No Alcohol use: none Drug use: none - Family History Father Adopted: No Family Member Ethnicity: Non- Living Status: Hx Family Cardiac Disorders: No Hx Family Respiratory Disorders: Yes Hx Family Cancer: No Hx Family GI Disorders: No Hx Family Endocrine Disorder: No Hx Family Neuromuscular Disorders: No Hx Family Neurologic Disorders: No Hx Family HEENT Disorders: No Hx Family Autoimmune Disorders: No Internal Medicine - H&P: Meds Albuterol Neb [Proventil Neb] 2.5 mg IH Q4HR PRN 08/28/15 [History] Lovastatin 40 mg PO DAILY 08/28/15 [History] Omeprazole [PriLOSEC] 40 mg PO DAILY 08/28/15 [History] Tiotropium [Spiriva] 18 mcg IH DAILY 08/28/15 [History] Insulin Glargine [Lantus] 25 unit SQ HS 09/29/15 [History] Sennosides [Senna] 17.2 mg PO HS 05/25/16 [History] Albuterol Sulfate [Albuterol Inhaler] 2 puff IH Q6HR PRN #1 hfa.aer.ad 06/27/16 [Rx] Metoprolol XL (24 HR) Succ [Toprol Xl] 25 mg PO DAILY #30 tab.er.24h 05/06/17 [Rx] Bumetanide 1 mg PO DAILY 07/26/17 [History] Polyvinyl Alcohol [Artificial Tears] 1 drop RIGHT EYE QID 07/14/18 [History] Aspirin 81 mg PO DAILY 07/15/18 [History] Docusate Sodium [Dulcolax Stool Softener] 100 mg PO BID PRN 07/15/18 [History] Nystatin POWDER [Nystop] 1 appl TP BID 07/15/18 [History] Isosorbide MONOnitrate (24 HR) [Imdur] 30 mg PO DAILY #30 tab.er.24h 07/17/18 [Rx] Lactobacillus [Culturelle] 1 each PO BID #6 cap.sprink 07/17/18 [Rx] Potassium Chloride 20 meq PO BIDWM #14 tab.er.prt 07/17/18 [Rx] Allergy/AdvReac Type Severity Reaction Status Date / Time No Known Allergies Allergy Verified 12/10/17 17:19 All Systems PM: A 10-system review of systems was performed and is negative for pertinent findings except as documented above in the HPI. Review of systems: Review of systems from his July 2018 [facility] hospitalization were reviewed and revised as below Gen.: His weight increased from 81.647 kg at the February 2015 [facility] hospital ization to admission weight of 102.058 kg December 2014. It is minimally decreased to 99.972 kg at present time. Cardiovascular: As per history of present illness Respiratory: As per history of present illness GI: He has no known disorder of his liver gallbladder or exocrine pancreas : There is no known hematuria dysuria or kidney stones Neurologic: No history of large distribution strokes or seizures. He does have severe hearing loss. Endocrine: He has been diagnosed with DM 2 approximately 2014 with his most recent hemoglobin A1c being 8.2% on 05/04/2018. He has hyperlipidemia. TSH was suppressed at 0.277 on 08/30/2015 but was normal at 1.947 on 07/14/2018. Hematology/oncology: There is no known blood disorders. He had lung cancer as per history of present illness. There are no other known malignancies. Psychiatric: He has major depressive disorder and panic attacks. [place] skeletal: He has DJD but no known gout or osteoporosis - Constitutional Vitals: Temp Pulse Resp BP Pulse Ox 97.9 F 100 16 116/77 91 08/15/18 09:51 08/15/18 09:51 08/15/18 09:51 08/15/18 09:51 08/15/18 09:51 Exam: Neuro: He is a well-developed well-nourished male sitting on the side of bed who appears slightly dyspneic HEENT: Head is atraumatic and normal cephalic. Eyes: EOMI. There is no scleral icterus. Mouth: Mucosa is moist. Neck: There is no thyromegaly or adenopathy noted. Heart: Regular with rate approximately 96/m. No murmurs or gallops are heard. Lungs: No inspiratory crackles or expiratory wheezing is heard. Abdomen: He has a small umbilical hernia which is easily reducible. There is no significant tenderness to palpation. Exam is limited because he is in the upright position. Extremities: He has 1+ edema of the dorsum of the left foot and lower leg. There is trace edema of the right dorsum of the foot and lower leg. He has minimal DJD changes of his hands. Neurologic: Mental status: He is able to answer some questions but is very hard of hearing. He seems to be a reliable historian. The history is obtained primarily from his girlfriend and mother. Cranial nerves: Smile is symmetric. Forehead wrinkles bilaterally. Tongue protrudes midline. EOMI. Motor: There is no pronator drift. Cerebellar: Finger to nose is intact bilaterally. Skin: Warm and dry Internal Med - H&P Results - Labs CBC & Chem 7: 08/14/18 16:20 08/14/18 16:20 Labs: Short CBC 08/14/18 Range/Units 16:20 WBC 7.4 (4.3-11.1) K/mcL Hgb 12.9 (12.9-16.9) g/dL Hct 40.4 (37.5-50.1) % Plt Count 181 (140-400) K/mcL Neutrophils # 5.3 (1.6-8.9) K/mcL BMP 08/14/18 16:20 Sodium 142 Potassium 3.8 Chloride 98 Carbon Dioxide 41 H* BUN 13 Creatinine 0.76 Glucose 212 H Calcium 9.3 Cardiac Enzymes 08/14/18 Range/Units 16:20 Troponin I < 0.03 (< 0.04) ng/mL - Impressions ITS Impressions Chest X-Ray 08/14/18 16:05 IMPRESSION: Pulmonary edema remains with small bilateral pleural effusions. There is question of a developing opacity in the right mid lung, consider pneumonia. Focal right hilar opacity is re-identified. Consider CT imaging for further evaluation. If CT is not pursued at this time, follow-up CT is suggested to ensure stability of the right hilar appearance when compared to the 03/28/2017 CT exam. D/ / 08/14/2018 16:24:13 Matthew Jeffries MD / federico Interpreting Provider: Matthew Jeffries MD - VTE Reasons for not Prescribing Prophylaxis: Treatment not Indicated - Low risk for VTE
[2018-08-15] MEDS: Budesonide/Formoterol 160/4.5 1 PUFF INH IH SCH ×2 (11:30→21:28)
[2018-08-15] MEDS: Albuterol 2.5 MG/3 ML NEBULIZER IH PRN ×3 (11:30→21:32)
[2018-08-15] MEDS ORDERED: Azithromycin 500 MG in D5% in Water 250 ML IVPB SCH (12:00)
[2018-08-15] MEDS: cefTRIAXone 1,000 MG in Water for inj. (sterile) 20 ML 10 ML IVP SCH (12:36)
--- NOTE | 2018-08-15 16:46 | Electrocardiograph Report ---
[place] [id number] Test Date: 2018-08-14 Pat Name: Dru Tamez Department: EDP-16 Room: [facility] Gender: M Director Digital Strategy: : 1955 Requested By: Joy Feliz Order Number: [id number] Reading MD: Ynes Sánchez Measurements Intervals [place] Rate: 92 P: 69 TX: 135 QRS: 179 QRSD: 91 T: 59 QT: 377 QTc: 467 Interpretive Statements Sinus rhythm Right axis deviation Probable right ventricular hypertrophy Electronically Signed On 08-15-2018 16:45:14 EDT by Ynes Sánchez
[2018-08-15] MEDS: Sennosides 8.6 MG TABLET PO SCH (20:39)
[2018-08-15] MEDS: Lactobacillus 1 EACH CAP.SPRINK PO SCH (20:39)
[2018-08-15] MEDS ORDERED: Insulin DETEMIR 100 UNIT/ML X5UNITS SQ SCH (21:00)
[2018-08-15] MEDS ORDERED: Insulin LISPRO 300 UNITS/3 ML VIAL SQ SCH (21:00)
[2018-08-16] MEDS: Acetaminophen 325 MG TABLET PO PRN (03:33)
[2018-08-16] MEDS: Albuterol 2.5 MG/3 ML NEBULIZER IH PRN ×2 (05:37→09:08)
[2018-08-16 06:09] LABS: Basophils % 0.3 %; Eosinophils # 0.2 K/mcL (0.0-0.6); Eosinophils % 1.9 %; Hematocrit 40.6 % (37.5-50.1); Hemoglobin 12.8 g/dL (12.9-16.9); Immature Granulocytes % 0.2 % (0-4); Lymphocytes # 1.7 K/mcL (0.6-4.6); Mean Corpuscular HGB Conc 31.5 g/dL (31.6-35.5); Mean Corpuscular Hemoglobin 28.6 pg (28.0-33.3); Mean Corpuscular Volume 90.8 fL (83.0-100.0); Mean Platelet Volume 10.6 fL (9.4-12.4); Monocytes # 0.8 K/mcL (0.0-1.3); Monocytes % 8.4 %; Neutrophils # 6.3 K/mcL (1.6-8.9); Platelet Count 210 K/mcL (140-400); Red Blood Count 4.47 M/mcL (4.19-5.50); Red Cell Distribution Width 13.5 % (11.5-14.5); Segmented Neutrophils % 70.2 %
[2018-08-16 06:35] LABS: BUN/Creatinine Ratio 23 (6-26); Blood Urea Nitrogen 17 mg/dL (8-23); Carbon Dioxide 39 mEq/L (23-29); Chloride 98 mEq/L (98-107); Glucose 158 mg/dL (70-105); Osmolality,Calculated 299 (280-300); Potassium 3.4 mEq/L (3.5-5.1); Sodium 142 mEq/L (136-145); eGFR For Non-African Americans > 60 (> 60)
[2018-08-16 07:57] VITALS: BP 137/72
[2018-08-16] MEDS: Insulin LISPRO 300 UNITS/3 ML VIAL SQ SCH (08:25)
[2018-08-16] MEDS: Isosorbide MONOnitrate (24 HR) 30 MG TAB.ER.24H PO SCH (08:41)
[2018-08-16] MEDS: Lactobacillus 1 EACH CAP.SPRINK PO SCH (08:41)
[2018-08-16] MEDS: Aspirin 81 MG TAB.CHEW PO SCH (08:41)
[2018-08-16] MEDS: cefTRIAXone 1,000 MG in Water for inj. (sterile) 20 ML 10 ML IVP SCH (08:42)
[2018-08-16] MEDS: Nystatin POWDER 30 GM BOTTLE TP SCH (08:43)
[2018-08-16] MEDS: Artificial Tears SOLN 15 ML BOTTLE RIGHT EYE SCH (08:49)
[2018-08-16] MEDS ORDERED: Bumetanide 1 MG TABLET PO SCH (09:00)
[2018-08-16] MEDS ORDERED: Metoprolol XL (24 HR) Succ 50 MG TAB.ER.24H PO SCH (09:00)
[2018-08-16] MEDS: Budesonide/Formoterol 160/4.5 1 PUFF INH IH SCH (09:08)
[2018-08-16] MEDS: Tiotropium 18 MCG inhalation IH SCH (09:09)
--- NOTE | 2018-08-16 09:41 | Discharge Summary ---
Orders not resulted at time of discharge: Pending orders 08/16/18 05:03 Hgb A1C AM 0400 Date of Encounter: 08/16/18 Time of Encounter: 09:30 - Discharge Diagnosis (1) Acute exacerbation of chronic obstructive airways disease Priority: Primary Status: Acute (2) CHF (congestive heart failure) Priority: Secondary Status: Acute Qualifiers: Heart failure type: unspecified Heart failure chronicity: chronic Qualified Code(s): I50.9 - Heart failure, unspecified (3) HTN (hypertension) Priority: Secondary Status: Chronic Qualifiers: Hypertension type: essential hypertension Qualified Code(s): I10 - Essential (primary) hypertension (4) Type 2 diabetes mellitus Priority: Secondary Status: Chronic Qualifiers: Diabetes mellitus salvage determiner insulin use: with fpc use Diabetes mellitus complication status: without complication Qualified Code(s): E11.9 - Type 2 diabetes mellitus without complications; Z79.4 - manager intermediate (current) use of insulin Hospital course: Mr. Tamez is a 63 year old male who came to emergency room with 2-3 day history of increased cough and dyspnea. He reports the cough is productive occasionally of yellow/green sputum. He was evaluated in emergency room and was felt to have exacerbation of COPD and CHF. He was admitted to [facility] floor for ongoing care needs. Initial orders were written by the emergency room physician. I saw him on August 15 and performed a history and physical. He was given IV doxycycline in emergency room. I started him on Rocephin and Zithromax with lactobacillus. Symbicort was added. He was given additional Bumex and higher dose Toprol for heart failure. When I saw him on August 16 he felt significantly improved and back to his baseline. He wished to be discharged home which I felt was re asonable. BN peptide had decreased 132 by day of discharge. He will follow with his PCP Nancy Gama CNP within 1 week. He will remain on Symbicort and higher dose Toprol XL. He will continue with antibiotics and probiotic for 3 additional days at discharge. - Time Spent with Patient Total time spent providing and/or coordinating discharge services: - Discharge Medications Prescriptions: New Cefuroxime PO [Ceftin] 500 mg PO Q12HR #6 tablet Azithromycin [Zithromax] 250 mg PO DAILY #3 tablet Budesonide/Formoterol 160/4.5 [Symbicort 160/4.5] 2 puff IH BIDR #1 hfa.aer.ad Lactobacillus [Culturelle] 1 each PO BID #6 cap.sprink Metoprolol XL (24 HR) Succ [Toprol XL] 50 mg PO DAILY #30 tab.er.24h Continue Albuterol Neb [Proventil Neb] 2.5 mg IH Q4HR PRN PRN Reason: Shortness Of Breath/Wheezing Omeprazole [PriLOSEC] 40 mg PO DAILY Tiotropium [Spiriva] 18 mcg IH DAILY Lovastatin 40 mg PO DAILY Insulin Glargine [Lantus] 25 unit SQ HS Sennosides [Senna] 17.2 mg PO HS Albuterol Sulfate [Albuterol Inhaler] 2 puff IH Q6HR PRN #1 hfa.aer.ad PRN Reason: Wheezing Bumetanide 1 mg PO DAILY Polyvinyl Alcohol [Artificial Tears] 1 drop RIGHT EYE QID Aspirin 81 mg PO DAILY Docusate Sodium [Dulcolax Stool Softener] 100 mg PO BID PRN PRN Reason: Constipation Nystatin POWDER [Nystop] 1 appl TP BID Isosorbide MONOnitrate (24 HR) [Imdur] 30 mg PO DAILY #30 tab.er.24h Lactobacillus [Culturelle] 1 each PO BID #6 cap.sprink Potassium Chloride 20 meq PO BIDWM #14 tab.er.prt Discontinued Metoprolol XL (24 HR) Succ [Toprol Xl] 25 mg PO DAILY #30 tab.er.24h Home Medications: Albuterol Neb [Proventil Neb] 2.5 mg IH Q4HR PRN 08/28/15 [History] Lovastatin 40 mg PO DAILY 08/28/15 [History] Omeprazole [PriLOSEC] 40 mg PO DAILY 08/28/15 [History] Tiotropium [Spiriva] 18 mcg IH DAILY 08/28/15 [History] Insulin Glargine [Lantus] 25 unit SQ HS 09/29/15 [History] Sennosides [Senna] 17.2 mg PO HS 05/25/16 [History] Albuterol Sulfate [Albuterol Inhaler] 2 puff IH Q6HR PRN #1 hfa.aer.ad 06/27/16 [Rx] Bumetanide 1 mg PO DAILY 07/26/17 [History] Polyvinyl Alcohol [Artificial Tears] 1 drop RIGHT EYE QID 07/14/18 [History] Aspirin 81 mg PO DAILY 07/15/18 [History] Docusate Sodium [Dulcolax Stool Softener] 100 mg PO BID PRN 07/15/18 [History] Nystatin POWDER [Nystop] 1 appl TP BID 07/15/18 [History] Isosorbide MONOnitrate (24 HR) [Imdur] 30 mg PO DAILY #30 tab.er.24h 07/17/18 [Rx] Lactobacillus [Culturelle] 1 each PO BID #6 cap.sprink 07/17/18 [Rx] Potassium Chloride 20 meq PO BIDWM #14 tab.er.prt 07/17/18 [Rx] Azithromycin [Zithromax] 250 mg PO DAILY #3 tablet 08/16/18 [Rx] Budesonide/Formoterol 160/4.5 [Symbicort 160/4.5] 2 puff IH BIDR #1 hfa.aer.ad 08/16/18 [Rx] Cefuroxime PO [Ceftin] 500 mg PO Q12HR #6 tablet 08/16/18 [Rx] Lactobacillus [Culturelle] 1 each PO BID #6 cap.sprink 08/16/18 [Rx] Metoprolol XL (24 HR) Succ [Toprol XL] 50 mg PO DAILY #30 tab.er.24h 08/16/18 [Rx] Allergies/Adverse Reactions: Allergy/AdvReac Type Severity Reaction Status Date / Time No Known Allergies Allergy Verified 12/10/17 17:19 Date of admission: 08/14/18 17:45 Primary care physician: Nancy Gama CNP - Constitutional Vitals: Temp Pulse Resp BP Pulse Ox 98.4 F 72 14 137/72 94 08/16/18 07:56 08/16/18 07:56 08/16/18 09:08 08/16/18 07:56 08/16/18 09:08 - Patient Status Disposition: Home Health Service Condition: Good - Discharge Instructions Follow Up With: Nancy Gama CNP [Primary Care Provider] - 1 week Forms: ED Satisfaction Letter - Diet and Activity Activity: resume usual activities as tolerated, wear oxygen at all times Diet: advance to your usual diet - VTE Reasons for not Prescribing Prophylaxis: Treatment not Indicated - Low risk for VTE
--- NOTE | 2018-08-16 09:51 | Physician Discharge Referral ---
Home Health/Hosp Referral Info Transfer to: Home Health Attending Provider: Armando Provider in Charge Post Discharge: PCP (Nancy Gama CNP) - Diagnosis (1) Acute exacerbation of chronic obstructive airways disease Priority: Primary Status: Acute (2) CHF (congestive heart failure) Priority: Secondary Status: Acute (3) HTN (hypertension) Priority: Secondary Status: Chronic (4) Type 2 diabetes mellitus Priority: Secondary Status: Chronic - Respiratory Orders Oxygen / L per min (2 L/m 24/7) Smoking Cessation: Smoking cessation has been advised. For more information, call the [place] Tobacco Quit Line at 5-317-WIMK-NOW. - Diet/Nutrition Diet/Nutrition Orders: Cardiac - Activity Activity Orders: Ambulate - Services Needed Following services are medically necessary services: Nursing, Home Health Aide, Physical Therapy, Occupational Therapy - Transfer Medications Prescriptions: Cefuroxime PO [Ceftin] 500 mg PO Q12HR #6 tablet Azithromycin [Zithromax] 250 mg PO DAILY #3 tablet Budesonide/Formoterol 160/4.5 [Symbicort 160/4.5] 2 puff IH BIDR #1 hfa.aer.ad Lactobacillus [Culturelle] 1 each PO BID #6 cap.sprink Metoprolol XL (24 HR) Succ [Toprol XL] 50 mg PO DAILY #30 tab.er.24h Home Medications: Albuterol Neb [Proventil Neb] 2.5 mg IH Q4HR PRN 08/28/15 [History] Lovastatin 40 mg PO DAILY 08/28/15 [History] Omeprazole [PriLOSEC] 40 mg PO DAILY 08/28/15 [History] Tiotropium [Spiriva] 18 mcg IH DAILY 08/28/15 [History] Insulin Glargine [Lantus] 25 unit SQ HS 09/29/15 [History] Sennosides [Senna] 17.2 mg PO HS 05/25/16 [History] Albuterol Sulfate [Albuterol Inhaler] 2 puff IH Q6HR PRN #1 hfa.aer.ad 06/27/16 [Rx] Bumetanide 1 mg PO DAILY 07/26/17 [History] Polyvinyl Alcohol [Artificial Tears] 1 drop RIGHT EYE QID 07/14/18 [History] Aspirin 81 mg PO DAILY 07/15/18 [History] Docusate Sodium [Dulcolax Stool Softener] 100 mg PO BID PRN 07/15/18 [History] Nystatin POWDER [Nystop] 1 appl TP BID 07/15/18 [History] Isosorbide MONOnitrate (24 HR) [Imdur] 30 mg PO DAILY #30 tab.er.24h 07/17/18 [Rx] Lactobacillus [Culturelle] 1 each PO BID #6 cap.sprink 07/17/18 [Rx] Potassium Chloride 20 meq PO BIDWM #14 tab.er.prt 07/17/18 [Rx] Azithromycin [Zithromax] 250 mg PO DAILY #3 tablet 08/16/18 [Rx] Budesonide/Formoterol 160/4.5 [Symbicort 160/4.5] 2 puff IH BIDR #1 hfa.aer.ad 08/16/18 [Rx] Cefuroxime PO [Ceftin] 500 mg PO Q12HR #6 tablet 08/16/18 [Rx] Lactobacillus [Culturelle] 1 each PO BID #6 cap.sprink 08/16/18 [Rx] Metoprolol XL (24 HR) Succ [Toprol XL] 50 mg PO DAILY #30 tab.er.24h 08/16/18 [Rx] Allergies/Adverse Reactions: Allergy/AdvReac Type Severity Reaction Status Date / Time No Known Allergies Allergy Verified 12/10/17 17:19 Certification: Further, I certify that my clinical findings support that this patient is homebound (i.e. absences from home require considerable and taxing effort and are for medical reasons or baptism services or infrequently or short duration when for other reasons) because: Homebound Reason: Leaving home requires considerable and taxing effort due to condition (Severe COPD, oxygen dependent) Attestation: My signature below is to certify that this patient is under my care and that I, or nurse practitioner, or a physician's television production assistant working with me, has a [id number] encounter with this patient.
[2018-08-16 11:29] LABS: Estimated Average Glucose 192 mg/dl; Hemoglobin A1C 8.3 %
== END 2018-08-16 11:45 | disposition home health service (06) ==
LOC: EMEROOPIK 15:33 → INPPIK 15:33
PROVIDERS: ADMIT Internal Medicine; ATTEND Internal Medicine

== ENCOUNTER 2018-12-05 13:08 | Observation (INO) ==
[2018-12-05] MEDS ORDERED: Ipratropium/Albuterol Neb 3 ML IH ONE (13:11)
--- NOTE | 2018-12-05 13:13 | Emergency Department Note ---
Disposition Clinical Impression: Acute and chronic respiratory failure Qualifiers: Respiratory failure complication: hypoxia and hypercapnia Qualified Code(s): J96.21 - Acute and chronic respiratory failure with hypoxia Pulmonary edema Qualifiers: Chronicity: acute Qualified Code(s): J81.0 - Acute pulmonary edema Disposition: Admitted As Inpatient Condition: Fair Referrals: NONE,PCP [Non-Partnered Physician] - Forms: ED Satisfaction Letter Time of Disposition: 14:10 SOB HPI - General Chief Complaint: ED Shortness of Breath/Dyspnea Stated Complaint: Short of breath/ abdominal swelling Time Seen by Provider: 12/05/18 13:11 Source: patient, EMS Mode of arrival: EMS Limitations: physical limitation (Hard of hearing) Nursing Notes Reviewed: Yes Vital Signs Reviewed: Yes - History of Present Illness Patient arrives by EMS with complaint of shortness of breath. He is on oxygen at home has been brought in from about a mile from the hospital on supplemental oxygen. Accu-Chek is 170. History is difficult from the patient as he is very hard of hearing. Indicates his shortness of breath has been going on for "a w hile". Relates usually gets more short of breath when he gets fluid on his abdomen and he feels like his abdomen is more distended. He has been on his same oxygen by concentrator. He states he cannot lay down flat without having increased shortness of breath. He denies that he is having increasing cough or fevers. He denies chest pain or palpitation. He does have history of diabetes and he states "my girlfriend gives me shots" and was "I do not know what they are". He states they are for his blood sugar, for times a day and "she quit helping me". He cannot say how long he has been off any of his diabetic medications or injections. Denies lower extremity swelling or pain. He is dysp neic and irascible. EMS did transmit an EKG performed at 12:58 PM. This showed a sinus rhythm with rate of 95, axis of 176 him a NH interval of 122 and a QT/QTC 368/429. There are no acute ST or T-wave changes for ischemia or infarction. This is on my interpretation. Pt Subjective Complaint: shortness of breath Onset (ago): unknown ("A while") - Related Data Home Medications Medication Instructions Recorded Confirmed Albuterol Neb [Proventil Neb] 2.5 mg IH Q4HR PRN 08/28/15 12/05/18 Lovastatin 40 mg PO DAILY 08/28/15 12/05/18 Omeprazole [PriLOSEC] 40 mg PO DAILY 08/28/15 12/05/18 Tiotropium [Spiriva] 18 mcg IH DAILY 08/28/15 12/05/18 Insulin Glargine [Lantus] 25 unit SQ HS 09/29/15 12/05/18 Sennosides [Senna] 17.2 mg PO HS 05/25/16 12/05/18 Bumetanide 1 mg PO DAILY 07/26/17 12/05/18 Polyvinyl Alcohol [Artificial 1 drop RIGHT EYE QID 07/14/18 12/05/18 Tears] Aspirin 81 mg PO DAILY 07/15/18 12/05/18 Docusate Sodium [Dulcolax Stool 100 mg PO BID PRN 07/15/18 12/05/18 Softener] Nystatin POWDER [Nystop] 1 appl TP BID 07/15/18 12/05/18 Previous Rx's Medication Instructions Recorded Albuterol Sulfate [Proventil 2 puff IH Q6HR PRN #1 hfa.aer.ad 06/27/16 Inhaler] Isosorbide MONOnitrate (24 HR) 30 mg PO DAILY #30 tab.er.24h 07/17/18 [Imdur] Lactobacillus [Culturelle] 1 each PO BID #6 cap.sprink 07/17/18 Potassium Chloride 20 meq PO BIDWM #14 tab.er.prt 07/17/18 Azithromycin [Zithromax] 250 mg PO DAILY #3 tablet 08/16/18 Budesonide/Formoterol 160/4.5 2 puff IH BIDR #1 hfa.aer.ad 08/16/18 [Symbicort 160/4.5] Cefuroxime PO [Ceftin] 500 mg PO Q12HR #6 tablet 08/16/18 Lactobacillus [Culturelle] 1 each PO BID #6 cap.sprink 08/16/18 Metoprolol XL (24 HR) Succ [Toprol 50 mg PO DAILY #30 tab.er.24h 08/16/18 XL] Allergies Allergy/AdvReac Type Severity Reaction Status Date / Time No Known Allergies Allergy Verified 12/10/17 17:19 All systems ED: reviewed and negative except as stated. Past Medical History - Past Medical History Attestation: Yes The following information was validated with the patient. Source: patient, old records reviewed, nursing notes reviewed Medical history: Reports: cancer, CHF, COPD, diabetes, GERD, hyperlipidemia, hypertension, other Surgical history: Reports: sinus surgery Psychiatric history: Reports: anxiety, depression - Social History Smoking Status: Former smoker Smokeless Tobacco Status: No Alcohol use: Reports: none Drug use: Reports: none Physical Exam - General Limitations: physical limitation (Hard of hearing) General appearance: alert, in distress (Moderately dyspneic) - Head Head exam: atraumatic, normocephalic, normal inspection - Eye Eye exam: Present: normal appearance, PERRL, EOMI - ENT ENT exam: normal exam, normal oropharynx, mucous membranes moist - Neck Neck exam: Present: normal inspection, full ROM, trachea midline - Chest Chest inspection: Present: normal inspection, symmetric chest wall rise - Respiratory Respiratory exam: Present: respiratory distress, prolonged expiratory phase, other (Diminished breath sounds bilaterally). Absent: wheezes - Cardiovascular Cardiovascular exam: Present: regular rate, normal rhythm, normal heart sounds - Abdominal Exam Abdominal exam: Present: soft, tenderness (Mild diffuse), distention, normal bowel sounds, hernia (Small umbilical). Absent: guarding, rebound, rigidity - Extremities Exam Extremities exam: Present: normal inspection, full ROM, normal capillary refill, pedal edema (1+). Absent: tenderness, calf tenderness - Expanded Lower Extremity Exam Neurovascular/Tendon exam: Present: normal capillary refill. Absent: motor deficit, sensory deficit, tendon deficit Gait: not tested/not observed - Back Exam Back exam: Present: normal inspection, full ROM. Absent: tenderness - Neurological Exam Neurological exam: Present: alert, CN II-XII intact - Psychiatric Psychiatric exam: Present: agitated - Skin Skin exam: Present: warm, dry, intact, normal color. Absent: cyanosis, tien phoresis, pallor Course Course Narrative: 1330: Patient is CO2 retaining an ABG and his chest x-ray shows patchy increased markings consistent with some pulmonary edema. He has been written to receive a dose of Lasix as well as start BiPAP. 1411: With return of all testing, care is discussed with Dr. Roberts. Verbal orders are obtained for inpatient observation. Patient is improved on BiPAP. His symptoms are most consistent with fluid overload. I do not see evidence for pneumonia or COPD exacerbation to initiate steroids or antibiotics. Dr. Roberts is comfortable going without and reevaluating the patient on the floor. 1417: We have contacted the floor for bed assignment. Advised that two hospice patients and a swing bed that will be arriving. They do not believe they will staff to accept this patient. We are waiting at this time to see if we have a bed to admit this patient at our facility. 1437: Care has been discussed with the patient. He does wish to stay at this hospital if possible. He understands that we are trying to secure an but he may need to go elsewhere. He states that he would want to go to [facility] if he is unable to stay here. 1445: Floor advises that he will have an inpatient bed. Verbal orders have been placed for Dr. Roberts's request for admission. Vital Signs Temperature 98 F 12/05/18 13:11 Pulse Rate 100 12/05/18 13:11 Respiratory Rate 20 12/05/18 13:11 Blood Pressure 102/68 12/05/18 13:11 O2 Sat by Pulse Oximetry 100 12/05/18 13:11 Temperature 98 F 12/05/18 13:11 Pulse Rate 101 12/05/18 14:37 Respiratory Rate 18 12/05/18 14:37 Blood Pressure 129/90 12/05/18 14:37 O2 Sat by Pulse Oximetry 95 12/05/18 14:37 Oxygen Delivery Oxygen Delivery Bipap Shortness of Breath/Dyspnea - Differential Diagnosis Likely: acute exacerbation of chronic obstructive airways disease, congestive heart failure, pneumonia, asthma with exacerbation - Medical Records Medical records reviewed: Yes I reviewed the patient's medical records. - Lab Data Lab results reviewed: Yes I reviewed the patient's lab results. Result diagrams: 12/05/18 13:32 12/05/18 13:32 Lab Results 12/05/18 12/05/18 12/05/18 Range/Units 13:28 13:32 13:32 WBC 10.1 (4.3-11.1) K/mcL RBC 4.91 (4.19-5.50) M/mcL Hgb 13.5 (12.9-16.9) g/dL Hct 44.9 (37.5-50.1) % MCV 91.4 (83.0-100.0) fL MCH 27.5 L (28.0-33.3) pg MCHC 30.1 L (31.6-35.5) g/dL RDW 14.1 (11.5-14.5) % Plt Count 275 (140-400) K/mcL MPV 10.1 (9.4-12.4) fL Immature Gran % 0.4 (0-4) % Seg Neutrophils % 76.4 % Lymphocytes % 12.1 % Monocytes % 8.8 % Eosinophils % 1.9 % Basophils % 0.4 % Neutrophils # 7.7 (1.6-8.9) K/mcL Lymphocytes # 1.2 (0.6-4.6) K/mcL Monocytes # 0.9 (0.0-1.3) K/mcL Eosinophils # 0.2 (0.0-0.6) K/mcL Basophils # 0.0 (0.0-0.2) K/mcL PT 14.2 H (9.4-12.1) Seconds INR 1.3 APTT 31.4 (26.0-36.0) Seconds Sample Site R Radial ABG pH 7.41 (7.32-7.45) pH Units ABG pCO2 81 H* (35-45) mmHg ABG pO2 65 L (85-104) mmHg ABG HCO3 51 H (21-27) mEq/L ABG Total CO2 > 50 H (20-26) mEq/L ABG O2 Saturation 91 L (95-98) % ABG Base Excess 21 H (-2 to 3) mEq/L Higinio Test Positive O2 Delivery Device Cannula Blood Gas Modality 3 Sodium (136-145) mEq/L Potassium (3.5-5.1) mEq/L Chloride (98-107) mEq/L Carbon Dioxide (23-29) mEq/L BUN (8-23) mg/dL Creatinine (0.70-1.30) mg/dL Est GFR ( Amer) (> 60) Est GFR (Non-Af Amer) (> 60) BUN/Creatinine Ratio (6-26) Glucose (70-105) mg/dL Calculated Osmolality (280-300) Lactic Acid (0.5-2.2) mmol/L Calcium (8.6-10.3) mg/dL Troponin I (< 0.04) ng/mL B-Natriuretic Peptide (Less than 100) pg/mL Person Notif of Crit DR MELE SAEED 12/05/18 12/05/18 12/05/18 Range/Units 13:32 13:32 13:32 WBC (4.3-11.1) K/mcL RBC (4.19-5.50) M/mcL Hgb (12.9-16.9) g/dL Hct (37.5-50.1) % MCV (83.0-100.0) fL MCH (28.0-33.3) pg MCHC (31.6-35.5) g/dL RDW (11.5-14.5) % Plt Count (140-400) K/mcL MPV (9.4-12.4) fL Immature Gran % (0-4) % Seg Neutrophils % % Lymphocytes % % Monocytes % % Eosinophils % % Basophils % % Neutrophils # (1.6-8.9) K/mcL Lymphocytes # (0.6-4.6) K/mcL Monocytes # (0.0-1.3) K/mcL Eosinophils # (0.0-0.6) K/mcL Basophils # (0.0-0.2) K/mcL PT (9.4-12.1) Seconds INR APTT (26.0-36.0) Seconds Sample Site ABG pH (7.32-7.45) pH Units ABG pCO2 (35-45) mmHg ABG pO2 (85-104) mmHg ABG HCO3 (21-27) mEq/L ABG Total CO2 (20-26) mEq/L ABG O2 Saturation (95-98) % ABG Base Excess (-2 to 3) mEq/L Higinio Test O2 Delivery Device Blood Gas Modality Sodium 142 (136-145) mEq/L Potassium 3.6 (3.5-5.1) mEq/L Chloride 86 L (98-107) mEq/L Carbon Dioxide > 45 H* (23-29) mEq/L BUN 14 (8-23) mg/dL Creatinine 0.75 (0.70-1.30) mg/dL Est GFR ( Amer) > 60 (> 60) Est GFR (Non-Af Amer) > 60 (> 60) BUN/Creatinine Ratio 19 (6-26) Glucose 171 H (70-105) mg/dL Calculated Osmolality 299 (280-300) Lactic Acid 1.0 (0.5-2.2) mmol/L Calcium 9.3 (8.6-10.3) mg/dL Troponin I < 0.03 (< 0.04) ng/mL B-Natriuretic Peptide 592 H (Less than 100) pg/mL Person Notif of Crit - Radiology Data Radiology results reviewed: Yes I reviewed the patient's radiology results. Single view chest x-ray is performed. This demonstrates some mild increase interstitial markings consistent with some pulmonary edema. I do not see U diffusion, pneumothorax or infiltrate. No other acute abnormality is seen. This is on my interpretation. Impressions Chest X-Ray 12/05/18 13:11 IMPRESSION: Technically suboptimal exam excluding portions of the right and left lower hemithoraces. Pulmonary findings typical of congestive heart failure. Pneumonitis is a consideration in areas of infiltrate. D/ / Bo Reis / Bo Reis Interpreting Provider: Bo Reis - EKG Data EKG attestation: Yes I reviewed and interpreted this EKG. EKG shows normal: Reports: sinus rhythm (98), axis, intervals, QRS complexes, ST-T waves Rate: Reports: normal P waves: Reports: GENNA Interpretation: Reports: no acute changes, other (Consistent with right ventricular hypertrophy. No acute ST or T-wave changes to suggest ischemia.)
[2018-12-05] MEDS ORDERED: Furosemide 40 MG/4 ML VIAL IVP ONE (13:30)
[2018-12-05 13:33] LABS: ABG Base Excess 21 mEq/L (-2 to 3); ABG HCO3 51 mEq/L (21-27); ABG Oxygen Saturation 91 % (95-98); ABG PCO2 81 mmHg (35-45); ABG PH 7.41 pH Units (7.32-7.45); ABG PO2 65 mmHg (85-104); ABG TCO2 > 50 mEq/L (20-26); Blood Gas Modality 3
[2018-12-05 13:46] LABS: Basophils % 0.4 %; Eosinophils # 0.2 K/mcL (0.0-0.6); Eosinophils % 1.9 %; Hematocrit 44.9 % (37.5-50.1); Hemoglobin 13.5 g/dL (12.9-16.9); Immature Granulocytes % 0.4 % (0-4); Lymphocytes # 1.2 K/mcL (0.6-4.6); Lymphocytes % 12.1 %; Mean Corpuscular HGB Conc 30.1 g/dL (31.6-35.5); Mean Corpuscular Hemoglobin 27.5 pg (28.0-33.3); Mean Corpuscular Volume 91.4 fL (83.0-100.0); Mean Platelet Volume 10.1 fL (9.4-12.4); Monocytes # 0.9 K/mcL (0.0-1.3); Monocytes % 8.8 %; Neutrophils # 7.7 K/mcL (1.6-8.9); Platelet Count 275 K/mcL (140-400); Red Blood Count 4.91 M/mcL (4.19-5.50); Red Cell Distribution Width 14.1 % (11.5-14.5); Segmented Neutrophils % 76.4 %; White Blood Count 10.1 K/mcL (4.3-11.1)
[2018-12-05 13:49] LABS: INR 1.3; Prothrombin Time 14.2 Seconds (9.4-12.1)
[2018-12-05 13:51] LABS: Activated Partial Thrombo Time 31.4 Seconds (26.0-36.0)
[2018-12-05 14:03] LABS: BUN/Creatinine Ratio 19 (6-26); Blood Urea Nitrogen 14 mg/dL (8-23); Calcium 9.3 mg/dL (8.6-10.3); Carbon Dioxide > 45 mEq/L (23-29); Chloride 86 mEq/L (98-107); Glucose 171 mg/dL (70-105); Osmolality,Calculated 299 (280-300); Potassium 3.6 mEq/L (3.5-5.1); Sodium 142 mEq/L (136-145); Troponin I < 0.03 ng/mL (< 0.04); eGFR For African Americans > 60 (> 60); eGFR For Non-African Americans > 60 (> 60)
[2018-12-05] MEDS ORDERED: Albuterol 2.5 MG/3 ML NEBULIZER IH PRN (17:13)
[2018-12-05] MEDS ORDERED: Naloxone 0.4 MG/ML INJ IVP PRN (17:13)
[2018-12-05] MEDS ORDERED: Dextrose Gel 15 GM/37.5 ML TUBE PO PRN ×2 (17:13)
[2018-12-05] MEDS ORDERED: D5% in Water 1,000 ML IVC PRN (17:13)
[2018-12-05] MEDS ORDERED: Ondansetron 4 MG/2 ML VIAL IVP PRN (17:13)
[2018-12-05] MEDS ORDERED: *HR* Dextrose 50 % in Water (Syg) 50 ML SYRINGE IVP PRN (17:13)
[2018-12-05] MEDS: Insulin LISPRO 300 UNITS/3 ML VIAL SQ SCH (17:57)
[2018-12-05] MEDS: Artificial Tears SOLN 15 ML BOTTLE RIGHT EYE SCH ×2 (18:09→22:46)
[2018-12-05] MEDS: Lactobacillus 1 EACH CAP.SPRINK PO SCH (22:46)
[2018-12-05] MEDS: traMADol 50 MG TABLET PO PRN (22:46)
[2018-12-05] MEDS: Sennosides 8.6 MG TABLET PO SCH (22:46)
[2018-12-05] MEDS: Nystatin POWDER 30 GM BOTTLE TP SCH (22:55)
[2018-12-05] MEDS: Insulin DETEMIR 100 UNIT/ML X5UNITS SQ SCH (22:56)
[2018-12-06] MEDS: Insulin LISPRO 300 UNITS/3 ML VIAL SQ SCH ×3 (07:34→18:10)
[2018-12-06] MEDS: traMADol 50 MG TABLET PO PRN (08:43)
[2018-12-06] MEDS: Artificial Tears SOLN 15 ML BOTTLE RIGHT EYE SCH ×4 (08:44→21:04)
[2018-12-06] MEDS: Aspirin 81 MG TAB.CHEW PO SCH (08:44)
[2018-12-06] MEDS: Lactobacillus 1 EACH CAP.SPRINK PO SCH ×2 (08:44→21:08)
[2018-12-06] MEDS ORDERED: Metoprolol XL (24 HR) Succ 50 MG TAB.ER.24H PO SCH (09:00)
[2018-12-06] MEDS ORDERED: Isosorbide MONOnitrate (24 HR) 30 MG TAB.ER.24H PO SCH (09:00)
[2018-12-06] MEDS ORDERED: Bumetanide 1 MG TABLET PO SCH (09:00)
[2018-12-06] MEDS: Nystatin POWDER 30 GM BOTTLE TP SCH ×2 (12:49→21:09)
--- NOTE | 2018-12-06 15:00 | Internal Med History&Physical ---
Date of Encounter: 12/06/18 Time of Encounter: 14:35 Assessment and Plan (1) CHF (congestive heart failure) Current visit: No Status: Acute Now improved. Continue Bumex, Toprol XL, and Imdur. Recheck labs in a.m. Qualifiers: Heart failure type: diastolic Heart failure chronicity: chronic Qualified Code(s): I50.32 - Chronic diastolic (congestive) heart failure (2) Acute exacerbation of chronic obstructive airways disease Current visit: No Status: Acute Continue Symbicort, Spiriva, and albuterol [facility] Internal Medicine - H&P: HPI Chief complaint: Dyspnea and cough Admitted From: Emergency Dept Plans for Post Hospital Care: Home History of present illness: Mr. Tamez is a 63 year old male who came to emergency room stating he had increasing dyspnea with cough productive of yellow/green sputum for the last 3-4 weeks. He was evaluated in emergency room and was found to have evidence of CHF with possible pneumonia. He was admitted to [facility] floor for ongoing care needs. He smoked from age [age] up to 4 packs per day. 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 He was not felt to be a surgical candidate. He received concurrent chemoradiation therapy with weekly carboplatin and Taxol with external beam XRT completed on 06/10/2015. He had chest and abdomen CT 05/24/2018 at [facility]. There was no evidence of recurrent malignancy seen in the chest. Abdominal CT showed no evidence of metastatic disease in the abdomen. 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 Chest CTA 10/03/2018 at [facility] emergency room showed no additional abnormalities. He has a diagnosis of COPD and wears oxygen /. He has had 2 thoracentesis procedures in the past but does not know definite results. He states his breathing has improved since admission but he does not feel back to his baseline yet. He denies IN hypertension heart failure angina DVT or pulmonary embolus. Echocardiogram 07/04/2017 showed LVEF of 55-60%. There was indeterminate diastolic function reported. E to A ratio was 1.2. There was severe pulmonary hypertension with estimated RVSP 68 mmHg. There was mild tricuspid and pulmonic regurgitation seen. The interventricular septum and posterior wall thickness measurements were 1.12 and 0.83 cm respectively. He ambulates very little at home and uses a motorized scooter. He denies missing any of his cardiovascular medications. Past Med Surg Social Fam HX - Past Medical History Medical history: cancer, CHF, COPD, diabetes, GERD, hyperlipidemia, hypertension, other Additional medical history: Lung cancer Psychiatric history: anxiety, depression - Past Surgical History Surgical History: sinus surgery Additional surgical history: patrial lung removed, 20 years ago, family unsure of reason, maybe scar tissue - Social History Smoking Status: Former smoker Smokeless Tobacco Status: No Alcohol use: none Drug use: none - Family History Father Adopted: No Family Member Ethnicity: Non- Living Status: Hx Family Cardiac Disorders: No Hx Family Respiratory Disorders: Yes Hx Family Cancer: No Hx Family GI Disorders: No Hx Family Endocrine Disorder: No Hx Family Neuromuscular Disorders: No Hx Family Neurologic Disorders: No Hx Family HEENT Disorders: No Hx Family Autoimmune Disorders: No Internal Medicine - H&P: Meds Albuterol Neb [Proventil Neb] 2.5 mg IH Q4HR PRN 08/28/15 [History] Lovastatin 40 mg PO DAILY 08/28/15 [History] Omeprazole [PriLOSEC] 40 mg PO DAILY 08/28/15 [History] Tiotropium [Spiriva] 18 mcg IH DAILY 08/28/15 [History] Insulin Glargine [Lantus] 25 unit SQ HS 09/29/15 [History] Sennosides [Senna] 17.2 mg PO HS 05/25/16 [History] Albuterol Sulfate [Proventil Inhaler] 2 puff IH Q6HR PRN #1 hfa.aer.ad 06/27/16 [Rx] Bumetanide 1 mg PO DAILY 07/26/17 [History] Polyvinyl Alcohol [Artificial Tears] 1 drop RIGHT EYE QID 07/14/18 [History] Aspirin 81 mg PO DAILY 07/15/18 [History] Docusate Sodium [Dulcolax Stool Softener] 100 mg PO BID PRN 07/15/18 [History] Nystatin POWDER [Nystop] 1 appl TP BID 07/15/18 [History] Isosorbide MONOnitrate (24 HR) [Imdur] 30 mg PO DAILY #30 tab.er.24h 07/17/18 [Rx] Lactobacillus [Culturelle] 1 each PO BID #6 cap.sprink 07/17/18 [Rx] Potassium Chloride 20 meq PO BIDWM #14 tab.er.prt 07/17/18 [Rx] Azithromycin [Zithromax] 250 mg PO DAILY #3 tablet 08/16/18 [Rx] Budesonide/Formoterol 160/4.5 [Symbicort 160/4.5] 2 puff IH BIDR #1 hfa.aer.ad 08/16/18 [Rx] Cefuroxime PO [Ceftin] 500 mg PO Q12HR #6 tablet 08/16/18 [Rx] Lactobacillus [Culturelle] 1 each PO BID #6 cap.sprink 08/16/18 [Rx] Metoprolol XL (24 HR) Succ [Toprol XL] 50 mg PO DAILY #30 tab.er.24h 08/16/18 [Rx] Allergy/AdvReac Type Severity Reaction Status Date / Time No Known Allergies Allergy Verified 12/10/17 17:19 All Systems PM: A 10-system review of systems was performed and is negative for pertinent findings except as documented above in the HPI. Review of systems: Review of systems from his August 2018 [facility] hospitalization were reviewed and revised as below Gen.: His weight has decreased from 99.972 kg at August 2018 hospitalization to 93.939 kg on admission now. Cardiovascular: As per history of present illness Respiratory: As per history of present illness GI: He has no known disorder of his liver gallbladder or exocrine pancreas : There is no known hematuria dysuria or kidney stones Neurologic: No history of large distribution strokes or seizures. He does have severe hearing loss. Endocrine: He has been diagnosed with DM 2 approximately 2014 with his most recent hemoglobin A1c 7.4% on 10/09/2018. He has hyperlipidemia. TSH was suppressed at 0.277 on 08/30/2015 but was normal at 1.947 on 07/14/2018. Hematology/oncology: There is no known blood disorders. He had lung cancer as per history of present illness. There are no other known malignancies. Psychiatric: He has major depressive disorder and panic attacks. Musk skeletal: He has DJD but no known gout or osteoporosis - Constitutional Vitals: Temp Pulse Resp BP Pulse Ox 98.6 F 91 16 104/70 92 12/06/18 11:15 12/06/18 11:15 12/06/18 11:15 12/06/18 11:15 12/06/18 11:15 Exam: Gen.: He is a well-developed well-nourished male sitting on the side of bed who appears in no acute distress HEENT: Head is atraumatic and normocephalic. Eyes: EOMI. There is no scleral icterus. Mouth: Mucosa is moist. Neck: Supple and nontender. There is no thyromegaly or adenopathy noted. Heart: Regular without murmurs gallops or ectopics Lungs: No wheezes or crackles are heard. Abdomen: He has a 2-3 cm umbilical hernia that is reducible. Abdomen is nontender to palpation. Bowel sounds are present. Extremities: There is no cyanosis edema or clubbing noted. Dorsalis pedis and posterior tibial pulses are 1-2 over 2 bilaterally. Neurologic: Mental status: He is talkative and a good historian. Cranial nerves: Smile is symmetric. Forehead wrinkles bilaterally. Tongue protrudes midline. EOMI. Motor: There is no pronator drift. Cerebellar: Fair to nose is intact bilaterally. Skin: Warm and dry Internal Med - H&P Results - Labs CBC & Chem 7: 12/05/18 13:32 12/05/18 13:32 - ABG Interpretation ABG results: 12/05/18 13:28 ABG pH 7.41 ABG pCO2 81 H* ABG pO2 65 L ABG HCO3 51 H ABG Total CO2 > 50 H ABG O2 Saturation 91 L ABG Base Excess 21 H - Impressions ITS Impressions Chest X-Ray 12/05/18 13:11 IMPRESSION: Technically suboptimal exam excluding portions of the right and left lower hemithoraces. Pulmonary findings typical of congestive heart failure. Pneumonitis is a consideration in areas of infiltrate. D/ / Bo Reis / Bo Reis Interpreting Provider: Bo Reis
[2018-12-06] MEDS ORDERED: Albuterol 2.5 MG/3 ML NEBULIZER IH PRN (15:21)
[2018-12-06] MEDS: Sennosides 8.6 MG TABLET PO SCH (21:03)
[2018-12-06] MEDS: Insulin DETEMIR 100 UNIT/ML X5UNITS SQ SCH (21:04)
[2018-12-06] MEDS: Budesonide/Formoterol 160/4.5 1 PUFF INH IH SCH (21:39)
[2018-12-07] MEDS ORDERED: Mag Hydrox/Al Hydrox/Simeth 30 ML UDC PO PRN (01:54)
[2018-12-07] MEDS ORDERED: Tiotropium 18 MCG inhalation IH SCH (07:00)
[2018-12-07 07:03] LABS: Basophils # 0.1 K/mcL (0.0-0.2); Basophils % 0.6 %; Eosinophils # 0.2 K/mcL (0.0-0.6); Eosinophils % 1.9 %; Hematocrit 41.8 % (37.5-50.1); Immature Granulocytes % 0.4 % (0-4); Lymphocytes # 1.2 K/mcL (0.6-4.6); Lymphocytes % 14.1 %; Mean Corpuscular HGB Conc 31.1 g/dL (31.6-35.5); Mean Corpuscular Volume 89.9 fL (83.0-100.0); Mean Platelet Volume 10.5 fL (9.4-12.4); Monocytes # 0.9 K/mcL (0.0-1.3); Monocytes % 10.5 %; Neutrophils # 6.2 K/mcL (1.6-8.9); Platelet Count 248 K/mcL (140-400); Red Blood Count 4.65 M/mcL (4.19-5.50); Red Cell Distribution Width 13.9 % (11.5-14.5); Segmented Neutrophils % 72.5 %; White Blood Count 8.5 K/mcL (4.3-11.1)
[2018-12-07 07:14] VITALS: BP 94/67
[2018-12-07 07:55] LABS: Chloride 88 mEq/L (98-107); Potassium 3.6 mEq/L (3.5-5.1); Sodium 141 mEq/L (136-145)
[2018-12-07 07:56] LABS: BUN/Creatinine Ratio 22 (6-26); Blood Urea Nitrogen 16 mg/dL (8-23); Calcium 9.3 mg/dL (8.6-10.3); Glucose 197 mg/dL (70-105); Magnesium 2.1 mg/dL (1.6-2.6); Osmolality,Calculated 299 (280-300); eGFR For African Americans > 60 (> 60); eGFR For Non-African Americans > 60 (> 60)
[2018-12-07 07:58] LABS: Carbon Dioxide > 45 mEq/L (23-29)
[2018-12-07] MEDS: Aspirin 81 MG TAB.CHEW PO SCH (08:17)
[2018-12-07] MEDS: Lactobacillus 1 EACH CAP.SPRINK PO SCH (08:17)
[2018-12-07] MEDS: Insulin LISPRO 300 UNITS/3 ML VIAL SQ SCH (08:17)
[2018-12-07] MEDS: Artificial Tears SOLN 15 ML BOTTLE RIGHT EYE SCH (08:22)
[2018-12-07] MEDS ORDERED: Isosorbide MONOnitrate (24 HR) 30 MG TAB.ER.24H PO SCH (09:00)
--- NOTE | 2018-12-07 09:52 | Discharge Summary ---
Orders not resulted at time of discharge: Pending orders 12/05/18 13:32 Culture,Blood [BC] Stat Date of Encounter: 12/07/18 Time of Encounter: 09:40 - Discharge Diagnosis (1) CHF (congestive heart failure) Priority: Primary Status: Acute Qualifiers: Heart failure type: diastolic Heart failure chronicity: chronic Qualified Code(s): I50.32 - Chronic diastolic (congestive) heart failure (2) Acute exacerbation of chronic obstructive airways disease Priority: Secondary Status: Acute Hospital course: Mr. Tamez is a 63 year old male who came to emergency room stating he had increasing dyspnea with cough productive of yellow/green sputum for the last 3-4 weeks. He was evaluated in emergency room and was found to have evidence of CHF with possible pneumonia. He was admitted to [facility] floor for ongoing care needs. Initial orders were written by the emergency room physician. I saw him on December 06 and performed a history and physical. He was given a dose of IV Lasix in emergency room. When I saw him and performed a history and physical he stated his breathing was significantly improved. I increased Imdur to 60 mg daily to assist in heart failure. Follow-up lab work on December 07 showed BN peptide decreased to 257. Pro-calcitonin level returned WNL at 0.06. On December 07 he felt improved and stable for discharge home. He will follow with his PCP Dr. Tinajero within 1 week. He will continue home oxygen 29/11. - Time Spent with Patient Total time spent providing and/or coordinating discharge services: - Discharge Medications Prescriptions: New Isosorbide MONOnitrate (24 HR) [Imdur] 60 mg PO DAILY #30 tab.er.24h Continued Albuterol Neb [Proventil Neb] 2.5 mg IH Q4HR PRN PRN Reason: Shortness Of Breath/Wheezing Omeprazole [PriLOSEC] 40 mg PO DAILY Tiotropium [Spiriva] 18 mcg IH DAILY Lovastatin 40 mg PO DAILY Insulin Glargine [Lantus] 25 unit SQ HS Sennosides [Senna] 17.2 mg PO HS Albuterol Sulfate [Proventil Inhaler] 2 puff IH Q6HR PRN #1 hfa.aer.ad PRN Reason: Wheezing Bumetanide 1 mg PO DAILY Polyvinyl Alcohol [Artificial Tears] 1 drop RIGHT EYE QID Aspirin 81 mg PO DAILY Docusate Sodium [Dulcolax Stool Softener] 100 mg PO BID PRN PRN Reason: Constipation Nystatin POWDER [Nystop] 1 appl TP BID Lactobacillus [Culturelle] 1 each PO BID #6 cap.sprink Potassium Chloride 20 meq PO BIDWM #14 tab.er.prt Azithromycin [Zithromax] 250 mg PO DAILY #3 tablet Budesonide/Formoterol 160/4.5 [Symbicort 160/4.5] 2 puff IH BIDR #1 hfa.aer.ad Lactobacillus [Culturelle] 1 each PO BID #6 cap.sprink Metoprolol XL (24 HR) Succ [Toprol Xl] 50 mg PO DAILY #30 tab.er.24h Discontinued Isosorbide MONOnitrate (24 HR) [Imdur] 30 mg PO DAILY #30 tab.er.24h Cefuroxime PO [Ceftin] 500 mg PO Q12HR #6 tablet Home Medications: Albuterol Neb [Proventil Neb] 2.5 mg IH Q4HR PRN 08/28/15 [History] Lovastatin 40 mg PO DAILY 08/28/15 [History] Omeprazole [PriLOSEC] 40 mg PO DAILY 08/28/15 [History] Tiotropium [Spiriva] 18 mcg IH DAILY 08/28/15 [History] Insulin Glargine [Lantus] 25 unit SQ HS 09/29/15 [History] Sennosides [Senna] 17.2 mg PO HS 05/25/16 [History] Albuterol Sulfate [Proventil Inhaler] 2 puff IH Q6HR PRN #1 hfa.aer.ad 06/27/16 [Rx] Bumetanide 1 mg PO DAILY 07/26/17 [History] Polyvinyl Alcohol [Artificial Tears] 1 drop RIGHT EYE QID 07/14/18 [History] Aspirin 81 mg PO DAILY 07/15/18 [History] Docusate Sodium [Dulcolax Stool Softener] 100 mg PO BID PRN 07/15/18 [History] Nystatin POWDER [Nystop] 1 appl TP BID 07/15/18 [History] Lactobacillus [Culturelle] 1 each PO BID #6 cap.sprink 07/17/18 [Rx] Potassium Chloride 20 meq PO BIDWM #14 tab.er.prt 07/17/18 [Rx] Azithromycin [Zithromax] 250 mg PO DAILY #3 tablet 08/16/18 [Rx] Budesonide/Formoterol 160/4.5 [Symbicort 160/4.5] 2 puff IH BIDR #1 hfa.aer.ad 08/16/18 [Rx] Lactobacillus [Culturelle] 1 each PO BID #6 cap.sprink 08/16/18 [Rx] Metoprolol XL (24 HR) Succ [Toprol Xl] 50 mg PO DAILY #30 tab.er.24h 08/16/18 [Rx] Isosorbide MONOnitrate (24 HR) [Imdur] 60 mg PO DAILY #30 tab.er.24h 12/07/18 [Rx] Allergies/Adverse Reactions: Allergy/AdvReac Type Severity Reaction Status Date / Time No Known Allergies Allergy Verified 12/10/17 17:19 Date of admission: 12/05/18 16:46 Primary care physician: Rowdy Tinajero DO - Constitutional Vitals: Temp Pulse Resp BP Pulse Ox 98.3 F 91 16 94/67 92 12/07/18 07:13 12/07/18 07:13 12/07/18 08:20 12/07/18 07:13 12/07/18 08:20 - Patient Status Disposition: Home, Self-Care Condition: Fair - Discharge Instructions Follow Up With: Rowdy Tinajero DO [Primary Care Provider] - 1 week - Diet and Activity Activity: resume usual activities as tolerated, wear oxygen at all times Diet: advance to your usual diet
[2018-12-07] MEDS: Budesonide/Formoterol 160/4.5 1 PUFF INH IH SCH (10:05)
--- NOTE | 2018-12-07 13:18 | Electrocardiograph Report ---
[place] [id number] Test Date: 2018-12-05 Pat Name: Dru Tamez Department: EDP-14 Room: [facility] Gender: M Motion Picture Director: : 1955 Requested By: Neil López Order Number: [id number] Reading MD: Baltazar Du Measurements Intervals [place] Rate: 98 P: 76 [place]: 126 QRS: 202 QRSD: 96 T: 65 QT: 370 QTc: 473 Interpretive Statements Sinus rhythm Consider right atrial enlargement Right ventricular hypertrophy Electronically Signed On 12-07-2018 13:17:00 EDT by Baltazar Du
== END 2018-12-07 11:02 | disposition home or self-care (01) ==
LOC: EMEROOPIK 13:08 → INPPIK 13:08
PROVIDERS: ADMIT Internal Medicine; ATTEND Internal Medicine

== ENCOUNTER 2019-01-12 16:04 | Observation (INO) ==
[2019-01-12] MEDS ORDERED: Ipratropium/Albuterol Neb 3 ML IH ONE (16:38)
--- NOTE | 2019-01-12 16:42 | Emergency Department Note ---
Disposition Clinical Impression: Acute congestive heart failure Qualifiers: Heart failure type: unspecified Qualified Code(s): I50.9 - Heart failure, unspecified Disposition: Admitted As Inpatient Condition: Fair Referrals: Rowdy Tinajero DO [Primary Care Provider] - Forms: ED Satisfaction Letter Time of Disposition: 17:57 SOB HPI - General Chief Complaint: ED Weakness Stated Complaint: sob Time Seen by Provider: 01/12/19 16:18 Source: patient, EMS Mode of arrival: EMS Limitations: no limitations Nursing Notes Reviewed: Yes Vital Signs Reviewed: Yes - History of Present Illness Pt Subjective Complaint: shortness of breath Onset (ago): day(s) (2 days) Severity: moderate Consistency/Duration: constant Improves with: nothing Worsens with: exertion Known history of: COPD, congestive heart failure, recurrent pneumonia Associated symptoms: Reports: abdominal pain Treatment prior to arrival: none Cough present: Yes - Related Data Home oxygen amount: 3 liters Home Medications Medication Instructions Recorded Confirmed Albuterol Neb [Proventil Neb] 2.5 mg IH Q4HR PRN 08/28/15 12/05/18 Lovastatin 40 mg PO DAILY 08/28/15 12/05/18 Omeprazole [PriLOSEC] 40 mg PO DAILY 08/28/15 12/05/18 Tiotropium [Spiriva] 18 mcg IH DAILY 08/28/15 12/05/18 Insulin Glargine [Lantus] 25 unit SQ HS 09/29/15 12/05/18 Sennosides [Senna] 17.2 mg PO HS 05/25/16 12/05/18 Bumetanide 1 mg PO DAILY 07/26/17 12/05/18 Polyvinyl Alcohol [Artificial 1 drop RIGHT EYE QID 07/14/18 12/05/18 Tears] Aspirin 81 mg PO DAILY 07/15/18 12/05/18 Docusate Sodium [Dulcolax Stool 100 mg PO BID PRN 07/15/18 12/05/18 Softener] Nystatin POWDER [Nystop] 1 appl TP BID 07/15/18 12/05/18 Previous Rx's Medication Instructions Recorded Albuterol Sulfate [Proventil 2 puff IH Q6HR PRN #1 hfa.aer.ad 06/27/16 Inhaler] Lactobacillus [Culturelle] 1 each PO BID #6 cap.sprink 07/17/18 Potassium Chloride 20 meq PO BIDWM #14 tab.er.prt 07/17/18 Azithromycin [Zithromax] 250 mg PO DAILY #3 tablet 08/16/18 Budesonide/Formoterol 160/4.5 2 puff IH BIDR #1 hfa.aer.ad 08/16/18 [Symbicort 160/4.5] Lactobacillus [Culturelle] 1 each PO BID #6 cap.sprink 08/16/18 Metoprolol XL (24 HR) Succ [Toprol 50 mg PO DAILY #30 tab.er.24h 08/16/18 Xl] Isosorbide MONOnitrate (24 HR) 60 mg PO DAILY #30 tab.er.24h 12/07/18 [Imdur] Allergies Allergy/AdvReac Type Severity Reaction Status Date / Time No Known Allergies Allergy Verified 12/10/17 17:19 All systems ED: reviewed and negative except as stated. Constitutional: Denies: fever, chills Eyes: Denies: eye pain, vision change ENT ED: Denies: ear pain, throat pain, congestion Cardiovascular: Reports: dyspnea on exertion. Denies: chest pain, palpitations Respiratory: Reports: cough, dyspnea, wheezes Gastrointestinal: Reports: abdominal pain. Denies: vomiting, diarrhea Neurological: Denies: headache Past Medical History - Past Medical History Attestation: Yes The following information was validated with the patient. Source: patient, old records reviewed, nursing notes reviewed Medical history: Reports: cancer, CHF, COPD, diabetes, GERD, hyperlipidemia, hypertension Surgical history: Reports: sinus surgery Psychiatric history: Reports: anxiety, depression - Social History Smoking Status: Former smoker Smokeless Tobacco Status: No Alcohol use: Reports: none Drug use: Reports: none Physical Exam - General Limitations: no limitations General appearance: alert, in no apparent distress - Head Head exam: atraumatic, normocephalic, normal inspection - Eye Eye exam: Present: normal appearance, PERRL, EOMI. Absent: scleral icterus, conjunctival injection - ENT ENT exam: normal exam, normal oropharynx, mucous membranes moist, normal external ear exam - Neck Neck exam: Present: normal inspection, full ROM, trachea midline. Absent: meningismus - Chest Chest inspection: Present: normal inspection, symmetric chest wall rise. Absent: tenderness - Respiratory Respiratory exam: Present: wheezes. Absent: respiratory distress, accessory muscle use - Cardiovascular Cardiovascular exam: Present: normal rhythm, tachycardia, normal heart sounds - Abdominal Exam Abdominal exam: Present: soft, Non-Tender, normal bowel sounds - Extremities Exam Extremities exam: Present: full ROM, pedal edema - Neurological Exam Neurological exam: Present: alert, oriented X3 - Psychiatric Psychiatric exam: Present: normal affect, normal mood - Skin Skin exam: Present: warm, dry. Absent: rash Course Course Narrative: Patient presents for shortness of breath for past 2 days. He is tachycardic here. He is a little bit tachypneic as well. His got wheezing in his lungs. He got some edema in his legs. He has risk factors for CHF and COPD and pneumonia. We will do a shortness of breath workup on him. I will add abdominal testing as well since is complaining about abdominal pain. Disposition will be based on diagnostic results and reevaluation. - Reevaluation(s) Reevaluation #1: Chest x-ray shows pulmonary edema. Labs look okay except for the elevated BNP of 600. CT the abdomen looks okay. I gave the patient 40 Lasix wheezing or needs more diuresis. I discussed the case with Cristino Bentley, the hospitalist here for the weekend. He accepted the patient for admission to the hospital with 40 of Lasix IV every 8. Time: 17:55 - Consultations Consultation #1: Cristino Bentley, hospitalist - I discussed the case with the hospitalist. He accepted the patient for admission. Time: 17:50 Vital Signs O2 Sat by Pulse Oximetry 93 01/12/19 16:09 Temperature 98.2 F 01/12/19 16:13 Pulse Rate 125 01/12/19 17:27 Respiratory Rate 14 01/12/19 17:27 Blood Pressure 129/84 01/12/19 17:27 O2 Sat by Pulse Oximetry 87 01/12/19 17:27 Oxygen Delivery Oxygen Delivery Nasal Cannula Shortness of Breath/Dyspnea - Medical Records Medical records reviewed: Yes I reviewed the patient's medical records. - Lab Data Lab results reviewed: Yes I reviewed the patient's lab results. Result diagrams: 01/12/19 16:53 01/12/19 16:53 Lab Results 01/12/19 01/12/19 01/12/19 Range/Units 16:53 16:53 16:53 WBC 9.0 (4.3-11.1) K/mcL RBC 4.67 (4.19-5.50) M/mcL Hgb 12.9 (12.9-16.9) g/dL Hct 43.9 (37.5-50.1) % MCV 94.0 (83.0-100.0) fL MCH 27.6 L (28.0-33.3) pg MCHC 29.4 L (31.6-35.5) g/dL RDW 14.4 (11.5-14.5) % Plt Count 160 (140-400) K/mcL MPV 10.8 (9.4-12.4) fL Immature Gran % 0.3 (0-4) % Seg Neutrophils % 78.9 % Lymphocytes % 9.2 % Monocytes % 10.3 % Eosinophils % 1.0 % Basophils % 0.3 % Neutrophils # 7.1 (1.6-8.9) K/mcL Lymphocytes # 0.8 (0.6-4.6) K/mcL Monocytes # 0.9 (0.0-1.3) K/mcL Eosinophils # 0.1 (0.0-0.6) K/mcL Basophils # 0.0 (0.0-0.2) K/mcL Sodium 143 (136-145) mEq/L Potassium 3.9 (3.5-5.1) mEq/L Chloride 91 L (98-107) mEq/L Carbon Dioxide > 45 H* (23-29) mEq/L BUN 17 (8-23) mg/dL Creatinine 0.76 (0.70-1.30) mg/dL Est GFR ( Amer) > 60 (> 60) Est GFR (Non-Af Amer) > 60 (> 60) BUN/Creatinine Ratio 22 (6-26) Glucose 171 H (70-105) mg/dL Calculated Osmolality 302 H (280-300) Lactic Acid 0.7 (0.5-2.2) mmol/L Calcium 9.6 (8.6-10.3) mg/dL Total Bilirubin 0.6 (0.3-1.0) mg/dL Direct Bilirubin 0.2 (0.0-0.2) mg/dL Indirect Bilirubin 0.4 (0.0-1.2) mg/dL AST 17 (13-39) Units/L ALT 15 (7-52) Units/L Alkaline Phosphatase 72 (34-104) Units/L Troponin I 0.03 (< 0.04) ng/mL B-Natriuretic Peptide (Less than 100) pg/mL Serum Total Protein 6.6 (6.4-8.9) g/dL Albumin 3.7 (3.5-5.7) g/dL Globulin 2.9 (2.4-3.5) g/dL Albumin/Globulin Ratio 1.3 (1.1-2.2) Lipase (11-82) Units/L Ethyl Alcohol < 10 (Less than 10) mg/dL 01/12/19 01/12/19 Range/Units 16:53 16:53 WBC (4.3-11.1) K/mcL RBC (4.19-5.50) M/mcL Hgb (12.9-16.9) g/dL Hct (37.5-50.1) % MCV (83.0-100.0) fL MCH (28.0-33.3) pg MCHC (31.6-35.5) g/dL RDW (11.5-14.5) % Plt Count (140-400) K/mcL MPV (9.4-12.4) fL Immature Gran % (0-4) % Seg Neutrophils % % Lymphocytes % % Monocytes % % Eosinophils % % Basophils % % Neutrophils # (1.6-8.9) K/mcL Lymphocytes # (0.6-4.6) K/mcL Monocytes # (0.0-1.3) K/mcL Eosinophils # (0.0-0.6) K/mcL Basophils # (0.0-0.2) K/mcL Sodium (136-145) mEq/L Potassium (3.5-5.1) mEq/L Chloride (98-107) mEq/L Carbon Dioxide (23-29) mEq/L BUN (8-23) mg/dL Creatinine (0.70-1.30) mg/dL Est GFR ( Amer) (> 60) Est GFR (Non-Af Amer) (> 60) BUN/Creatinine Ratio (6-26) Glucose (70-105) mg/dL Calculated Osmolality (280-300) Lactic Acid (0.5-2.2) mmol/L Calcium (8.6-10.3) mg/dL Total Bilirubin (0.3-1.0) mg/dL Direct Bilirubin (0.0-0.2) mg/dL Indirect Bilirubin (0.0-1.2) mg/dL AST (13-39) Units/L ALT (7-52) Units/L Alkaline Phosphatase (34-104) Units/L Troponin I (< 0.04) ng/mL B-Natriuretic Peptide 600 H (Less than 100) pg/mL Serum Total Protein (6.4-8.9) g/dL Albumin (3.5-5.7) g/dL Globulin (2.4-3.5) g/dL Albumin/Globulin Ratio (1.1-2.2) Lipase 6 L (11-82) Units/L Ethyl Alcohol (Less than 10) mg/dL - Radiology Data Radiology results reviewed: Yes I reviewed the patient's radiology results. - EKG Data EKG attestation: Yes I reviewed and interpreted this EKG. EKG results narrative: Twelve-lead EKG performed at 4:16 PM. Ordered, reviewed and interpreted by ED physician shows sinus tachycardia at a rate of 125. Right axis deviation.) Block. No acute ischemic changes.
[2019-01-12 17:02] LABS: Basophils % 0.3 %; Eosinophils # 0.1 K/mcL (0.0-0.6); Hematocrit 43.9 % (37.5-50.1); Hemoglobin 12.9 g/dL (12.9-16.9); Immature Granulocytes % 0.3 % (0-4); Lymphocytes # 0.8 K/mcL (0.6-4.6); Lymphocytes % 9.2 %; Mean Corpuscular HGB Conc 29.4 g/dL (31.6-35.5); Mean Corpuscular Hemoglobin 27.6 pg (28.0-33.3); Mean Platelet Volume 10.8 fL (9.4-12.4); Monocytes # 0.9 K/mcL (0.0-1.3); Monocytes % 10.3 %; Neutrophils # 7.1 K/mcL (1.6-8.9); Platelet Count 160 K/mcL (140-400); Red Blood Count 4.67 M/mcL (4.19-5.50); Red Cell Distribution Width 14.4 % (11.5-14.5); Segmented Neutrophils % 78.9 %
[2019-01-12 17:22] LABS: Troponin I 0.03 ng/mL (< 0.04)
[2019-01-12] MEDS ORDERED: Furosemide 40 MG/4 ML VIAL IVP ONE (17:30)
[2019-01-12 17:42] LABS: Alanine Aminotransferase 15 Units/L (7-52); Albumin 3.7 g/dL (3.5-5.7); Albumin/Globulin Ratio 1.3 (1.1-2.2); Alkaline Phosphatase 72 Units/L (34-104); Aspartate Amino Transferase 17 Units/L (13-39); BUN/Creatinine Ratio 22 (6-26); Bilirubin,Direct 0.2 mg/dL (0.0-0.2); Bilirubin,Indirect 0.4 mg/dL (0.0-1.2); Bilirubin,Total 0.6 mg/dL (0.3-1.0); Blood Urea Nitrogen 17 mg/dL (8-23); Calcium 9.6 mg/dL (8.6-10.3); Carbon Dioxide > 45 mEq/L (23-29); Chloride 91 mEq/L (98-107); Ethanol < 10 mg/dL (Less than 10); Globulin 2.9 g/dL (2.4-3.5); Glucose 171 mg/dL (70-105); Osmolality,Calculated 302 (280-300); Potassium 3.9 mEq/L (3.5-5.1); Sodium 143 mEq/L (136-145); Total Protein 6.6 g/dL (6.4-8.9); eGFR For African Americans > 60 (> 60); eGFR For Non-African Americans > 60 (> 60)
[2019-01-12] MEDS ORDERED: Naloxone 0.4 MG/ML INJ IVP PRN (18:46)
[2019-01-12] MEDS ORDERED: Insulin DETEMIR 100 UNIT/ML per UNIT SQ ONE (21:00)
[2019-01-12] MEDS ORDERED: NON-FORMULARY MEDICATION 1 EACH EACH (Insulin Glargine [Lantus] 25 UNIT) SQ SCH (21:00)
[2019-01-12] MEDS: Budesonide/Formoterol 160/4.5 1 PUFF INH IH SCH (21:26)
[2019-01-12] MEDS: Albuterol 2.5 MG/3 ML NEBULIZER IH PRN (21:27)
[2019-01-13] MEDS ORDERED: Dextrose Gel 15 GM/37.5 ML TUBE PO PRN ×2 (00:08)
[2019-01-13] MEDS ORDERED: *HR* Dextrose 50 % in Water (Syg) 50 ML SYRINGE IVP PRN (00:08)
[2019-01-13] MEDS ORDERED: D5% in Water 1,000 ML IVC PRN (00:08)
[2019-01-13 06:56] LABS: Basophils % 0.2 %; Eosinophils # 0.1 K/mcL (0.0-0.6); Eosinophils % 1.7 %; Hematocrit 42.6 % (37.5-50.1); Hemoglobin 12.5 g/dL (12.9-16.9); Immature Granulocytes % 0.4 % (0-4); Lymphocytes % 11.8 %; Mean Corpuscular HGB Conc 29.3 g/dL (31.6-35.5); Mean Corpuscular Hemoglobin 27.5 pg (28.0-33.3); Mean Corpuscular Volume 93.8 fL (83.0-100.0); Mean Platelet Volume 10.8 fL (9.4-12.4); Monocytes % 11.8 %; Neutrophils # 5.9 K/mcL (1.6-8.9); Platelet Count 155 K/mcL (140-400); Red Blood Count 4.54 M/mcL (4.19-5.50); Red Cell Distribution Width 14.3 % (11.5-14.5); Segmented Neutrophils % 74.1 %
[2019-01-13] MEDS: Aspirin 81 MG TAB.CHEW PO SCH (08:12)
[2019-01-13] MEDS: Isosorbide MONOnitrate (24 HR) 60 MG TAB.ER.24H PO SCH (08:13)
[2019-01-13] MEDS: Furosemide 40 MG/4 ML VIAL IVP SCH ×3 (08:13→16:39)
[2019-01-13] MEDS: Metoprolol XL (24 HR) Succ 50 MG TAB.ER.24H PO SCH (08:13)
[2019-01-13] MEDS: Insulin LISPRO 300 UNITS/3 ML VIAL SQ SCH ×4 (08:17→20:14)
[2019-01-13 08:19] LABS: BUN/Creatinine Ratio 21 (6-26); Blood Urea Nitrogen 16 mg/dL (8-23); Calcium 9.4 mg/dL (8.6-10.3); Carbon Dioxide > 45 mEq/L (23-29); Chloride 89 mEq/L (98-107); Glucose 132 mg/dL (70-105); Osmolality,Calculated 301 (280-300); Potassium 3.7 mEq/L (3.5-5.1); Sodium 144 mEq/L (136-145); eGFR For African Americans > 60 (> 60); eGFR For Non-African Americans > 60 (> 60)
[2019-01-13] MEDS: Budesonide/Formoterol 160/4.5 1 PUFF INH IH SCH ×2 (09:58→22:17)
[2019-01-13] MEDS: Tiotropium 18 MCG inhalation IH SCH (09:58)
[2019-01-13] MEDS: Albuterol 2.5 MG/3 ML NEBULIZER IH PRN ×2 (09:59→22:18)
--- NOTE | 2019-01-13 11:26 | Internal Med History&Physical ---
Date of Encounter: 01/13/19 Time of Encounter: 11:22 Assessment and Plan (1) Acute congestive heart failure Current visit: Yes Status: Acute Pt with acute on chronic CHF with underlying diastolic CHF by 2018 TTE. His underlying COPD is severe, but appears at baseline and without exacerbation at this time. There is worsening pulmonary edema on CXR and elevated BNP. He continues to have moderate hypervolemia on examination despite IV lasix. He is symptomatically improving. Will continue current IV furosemide at q8 hours and monitor with daily weights and fluids/sodium restriction. Labs ordered for AM. Qualifiers: Heart failure type: diastolic Qualified Code(s): I50.31 - Acute diastolic (congestive) heart failure (2) Pulmonary edema Current visit: No Status: Acute Appears secondary to diastolic dysfunction. Will monitor with diuresis. Qualifiers: Chronicity: acute Qualified Code(s): J81.0 - Acute pulmonary edema (3) Weakness generalized Current visit: No Status: Acute Likely secondary to COPD and CHF. Will monitor with diuresis. Recommend pt up out of bed to chair throughout the day. Consider d/c home tomorrow if at baseline. (4) HTN (hypertension) Current visit: No Status: Chronic Well-controlled. Will continue current regimen. Qualifiers: Hypertension type: essential hypertension Qualified Code(s): I10 - Essential (primary) hypertension (5) Type 2 diabetes mellitus Current visit: No Status: Chronic Will continue home regimen and monitor. Qualifiers: Diabetes mellitus lobsterman insulin use: with prison use Diabetes mellitus complication status: without complication Qualified Code(s): E11.9 - Type 2 diabetes mellitus without complications; Z79.4 - continuous churn buttermaker (current) use of insulin (6) COPD, severe Current visit: Yes Status: Acute Severe. Stable without evidence of exacerbation at this time. Will monitor on home regimen and home oxygen. Internal Medicine - H&P: HPI Chief complaint: shortness of breath Admitted From: Emergency Dept Plans for Post Hospital Care: Home History of present illness: Mr. Tamez is a 63 year old male with known severe COPD and diastolic CHF that presented to ED at direction of his home health nurse for increased shortness of breath and episodic confusion. Pt states that he breathing was much worse than baseline and limiting activity. No increase or change in baseline cough. No fevers, chills, increased wheezing or colored sputum. He does note that his leg edema was slightly worse and he had some orthopnea. He notes that 4 days prior to presentation his weight was near his baseline, but has not weighed himself since. No chest pain, palpitations, slurred speech or motor deficits. Upon evaluation in the ED, pt was found to have an elevated BNP similar to prior admission and worsening pulmonary edema on chest x-ray. Pt was administered 40mg of IV lasix and admitted to the med surg unit with a sodium and fluid restriction. Upon evaluation this morning, patient notes that his breathing is much better and approaching his baseline with the IV lasix. No cough or colored sputum. He has not been out of bed, so is uncertain of his dyspnea with mild exertion. He is eager for discharge. Past Med Surg Social Fam HX - Past Medical History Medical history: cancer, CHF, COPD, diabetes, GERD, hyperlipidemia, hypertension Additional medical history: Lung cancer Psychiatric history: anxiety, depression - Past Surgical History Surgical History: sinus surgery Additional surgical history: patrial lung removed, 20 years ago, family unsure of reason, maybe scar tissue - Social History Smoking Status: Former smoker Smokeless Tobacco Status: No Alcohol use: none Drug use: none - Family History Father Adopted: No Family Member Ethnicity: Non- Living Status: Hx Family Cardiac Disorders: No Hx Family Respiratory Disorders: Yes Hx Family Cancer: No Hx Family GI Disorders: No Hx Family Endocrine Disorder: No Hx Family Neuromuscular Disorders: No Hx Family Neurologic Disorders: No Hx Family HEENT Disorders: No Hx Family Autoimmune Disorders: No Internal Medicine - H&P: Meds Albuterol Neb [Proventil Neb] 2.5 mg IH Q4HR PRN 08/28/15 [History] Lovastatin 40 mg PO DAILY 08/28/15 [History] Omeprazole [PriLOSEC] 40 mg PO DAILY 08/28/15 [History] Tiotropium [Spiriva] 18 mcg IH DAILY 08/28/15 [History] Insulin Glargine [Lantus] 25 unit SQ HS 09/29/15 [History] Sennosides [Senna] 17.2 mg PO HS 05/25/16 [History] Albuterol Sulfate [Proventil Inhaler] 2 puff IH Q6HR PRN #1 hfa.aer.ad 06/27/16 [Rx] Bumetanide 1 mg PO DAILY 07/26/17 [History] Polyvinyl Alcohol [Artificial Tears] 1 drop RIGHT EYE QID 07/14/18 [History] Aspirin 81 mg PO DAILY 07/15/18 [History] Docusate Sodium [Dulcolax Stool Softener] 100 mg PO BID PRN 07/15/18 [History] Nystatin POWDER [Nystop] 1 appl TP BID 07/15/18 [History] Lactobacillus [Culturelle] 1 each PO BID #6 cap.sprink 07/17/18 [Rx] Potassium Chloride 20 meq PO BIDWM #14 tab.er.prt 07/17/18 [Rx] Azithromycin [Zithromax] 250 mg PO DAILY #3 tablet 08/16/18 [Rx] Budesonide/Formoterol 160/4.5 [Symbicort 160/4.5] 2 puff IH BIDR #1 hfa.aer.ad 08/16/18 [Rx] Lactobacillus [Culturelle] 1 each PO BID #6 cap.sprink 08/16/18 [Rx] Metoprolol XL (24 HR) Succ [Toprol Xl] 50 mg PO DAILY #30 tab.er.24h 08/16/18 [Rx] Isosorbide MONOnitrate (24 HR) [Imdur] 60 mg PO DAILY #30 tab.er.24h 12/07/18 [Rx] Allergy/AdvReac Type Severity Reaction Status Date / Time No Known Allergies Allergy Verified 12/10/17 17:19 All Systems PM: A 10-system review of systems was performed and is negative for pertinent findings except as documented above in the HPI. - Constitutional Vitals: Temp Pulse Resp BP Pulse Ox 97.3 F L 103 22 117/82 91 01/13/19 06:50 01/13/19 06:50 01/13/19 09:59 01/13/19 06:50 01/13/19 09:59 Exam: Gen: Sitting on side of bed, NAD HEENT: NC, AT Neck: Trachea midline, no mass Pulm: No respiratory distress, scattered exp wheeze throughout with fair air movement. + bibasilar crackles without egophony CV: Normal S1 and S2, RRR Abdomen: Soft, ND, NT Ext: No C/C; 1+ edema to knees bilaterally Neuro: No appreciable motor/sensor deficits Skin: Warm and dry, no rash Psych: A&Ox3 Internal Med - H&P Results - Labs CBC & Chem 7: 01/13/19 06:15 01/13/19 06:15 Labs: Short CBC 01/12/19 01/13/19 Range/Units 16:53 06:15 WBC 9.0 8.0 (4.3-11.1) K/mcL Hgb 12.9 12.5 L (12.9-16.9) g/dL Hct 43.9 42.6 (37.5-50.1) % Plt Count 160 155 (140-400) K/mcL Neutrophils # 7.1 5.9 (1.6-8.9) K/mcL BMP 01/12/19 01/13/19 16:53 06:15 Sodium 143 144 Potassium 3.9 3.7 Chloride 91 L 89 L Carbon Dioxide > 45 H* > 45 H* BUN 17 16 Creatinine 0.76 0.75 Glucose 171 H 132 H Calcium 9.6 9.4 Cardiac Enzymes 01/12/19 01/12/19 01/13/19 Range/Units 16:53 20:38 01:03 Troponin I 0.03 0.04 H* 0.04 H* (< 0.04) ng/mL Liver Function 01/12/19 Range/Units 16:53 Total Bilirubin 0.6 (0.3-1.0) mg/dL Direct Bilirubin 0.2 (0.0-0.2) mg/dL AST 17 (13-39) Units/L ALT 15 (7-52) Units/L Alkaline Phosphatase 72 (34-104) Units/L Albumin 3.7 (3.5-5.7) g/dL - Impressions ITS Impressions Chest X-Ray 01/12/19 16:38 IMPRESSION: Worsening of congestive heart failure. D/ / Patricia Giles MD / Patricia Giles MD Interpreting Provider: Patricia Giles MD Abdomen/Pelvis CT 01/12/19 16:40 IMPRESSION: 1. No acute intra-abdominal abnormality. 2. Moderate diverticulosis. 3. Partial visualization of consolidation in the right perihilar region with diffuse pleural thickening and trace right effusion. Findings are similar to the CT dated 10/03/2018. D/ / 01/12/2019 17:44:22 Emily Adams MD / federico Interpreting Provider: Emily Adams MD
[2019-01-13] MEDS: Benzonatate 100 MG CAPSULE PO PRN (15:15)
[2019-01-13] MEDS: Insulin DETEMIR 100 UNIT/ML X5UNITS SQ SCH (20:14)
[2019-01-14 06:44] LABS: Hematocrit 42.9 % (37.5-50.1); Hemoglobin 12.8 g/dL (12.9-16.9); Mean Corpuscular HGB Conc 29.8 g/dL (31.6-35.5); Mean Corpuscular Hemoglobin 27.6 pg (28.0-33.3); Mean Corpuscular Volume 92.5 fL (83.0-100.0); Mean Platelet Volume 10.6 fL (9.4-12.4); Platelet Count 163 K/mcL (140-400); Red Blood Count 4.64 M/mcL (4.19-5.50); Red Cell Distribution Width 14.4 % (11.5-14.5); White Blood Count 7.7 K/mcL (4.3-11.1)
[2019-01-14] MEDS: Insulin LISPRO 300 UNITS/3 ML VIAL SQ SCH ×4 (07:33→20:35)
[2019-01-14 07:46] LABS: Chloride 87 mEq/L (98-107); Sodium 143 mEq/L (136-145)
[2019-01-14 07:47] LABS: Albumin 3.7 g/dL (3.5-5.7); BUN/Creatinine Ratio 16 (6-26); Blood Urea Nitrogen 13 mg/dL (8-23); Calcium 9.6 mg/dL (8.6-10.3); Glucose 127 mg/dL (70-105); Osmolality,Calculated 298 (280-300); eGFR For African Americans > 60 (> 60); eGFR For Non-African Americans > 60 (> 60)
[2019-01-14 07:48] LABS: Carbon Dioxide > 45 mEq/L (23-29)
[2019-01-14] MEDS: Aspirin 81 MG TAB.CHEW PO SCH (07:50)
[2019-01-14] MEDS: Isosorbide MONOnitrate (24 HR) 60 MG TAB.ER.24H PO SCH (07:50)
[2019-01-14] MEDS: Benzonatate 100 MG CAPSULE PO PRN ×2 (07:50→17:38)
[2019-01-14] MEDS: Metoprolol XL (24 HR) Succ 50 MG TAB.ER.24H PO SCH (07:50)
[2019-01-14] MEDS: Furosemide 40 MG/4 ML VIAL IVP SCH ×3 (07:51→17:29)
[2019-01-14] MEDS: Budesonide/Formoterol 160/4.5 1 PUFF INH IH SCH ×2 (09:32→22:26)
[2019-01-14] MEDS: Tiotropium 18 MCG inhalation IH SCH (11:02)
--- NOTE | 2019-01-14 12:49 | Internal Med Progress Note ---
Date of Encounter: 01/14/19 Time of Encounter: 12:35 - Assessment and plan (1) Pulmonary edema Current Visit: No Status: Acute Assessment and plan: January 14. Continue IV Lasix and Imdur. Increase Toprol dose. Qualifiers: Chronicity: acute Qualified Code(s): J81.0 - Acute pulmonary edema (2) Acute congestive heart failure Current Visit: Yes Status: Acute Assessment and plan: January 14. Acute on chronic. Rx as above. Qualifiers: Heart failure type: diastolic Qualified Code(s): I50.31 - Acute diastolic (congestive) heart failure (3) HTN (hypertension) Current Visit: No Status: Chronic Assessment and plan: January 14. Continue Lasix and Imdur. Increase Toprol dose to 75 mg daily. Qualifiers: Hypertension type: essential hypertension Qualified Code(s): I10 - Essential (primary) hypertension (4) Type 2 diabetes mellitus Current Visit: No Status: Chronic Assessment and plan: Hemoglobin A1c was 7.4% on 10/09/2018. Recheck in a.m. Continue Levemir and Accu-Cheks with SSI. Qualifiers: Diabetes mellitus correction insulin use: with correction use Diabetes mellitus complication status: without complication Qualified Code(s): E11.9 - Type 2 diabetes mellitus without complications; Z79.4 - ferry terminal agent (current) use of insulin (5) Anemia Current Visit: No Status: Acute Assessment and plan: January 14. Anemia testing will be done in a.m. Qualifiers: Anemia type: unspecified type Qualified Code(s): D64.9 - Anemia, unspecified (6) COPD, severe Current Visit: Yes Status: Acute Assessment and plan: January 14. Continue Spiriva, Symbicort, and prn albuterol nebs. - Subjective Interval history: January 14. He has no new complaints and feels better. - Constitutional Vitals: Temp Pulse Resp BP Pulse Ox 98.1 F 106 18 125/80 97 01/14/19 10:06 01/14/19 10:01/14/19 10:56 01/14/19 10:01/14/19 10:56 Exam: Heart is regular with occasional ectopic. Rate is approximately 80/m. Lungs are clear. Extremities show trace to 1+ edema bilaterally of the lower anterior shins. I reviewed his medications and lab results. Internal Medicine: Result - Labs CBC & Chem 7: 01/14/19 06:36 01/14/19 06:36 Labs: Short CBC 01/14/19 Range/Units 06:36 WBC 7.7 (4.3-11.1) K/mcL Hgb 12.8 L (12.9-16.9) g/dL Hct 42.9 (37.5-50.1) % Plt Count 163 (140-400) K/mcL BMP 01/14/19 06:36 Sodium 143 Potassium 4.0 Chloride 87 L Carbon Dioxide > 45 H* BUN 13 Creatinine 0.82 Glucose 127 H Calcium 9.6 Liver Function 01/14/19 Range/Units 06:36 Albumin 3.7 (3.5-5.7) g/dL Consult Discharge Plan - Plan Referrals: Rowdy Tinajero DO [Primary Care Provider] - 1 week
[2019-01-14] MEDS ORDERED: Acetaminophen 325 MG TABLET PO PRN (19:44)
[2019-01-14] MEDS ORDERED: Mag Hydrox/Al Hydrox/Simeth 30 ML UDC PO PRN (19:45)
[2019-01-14] MEDS: Insulin DETEMIR 100 UNIT/ML X5UNITS SQ SCH (20:15)
[2019-01-15 06:58] VITALS: BP 110/75
[2019-01-15 07:12] LABS: Basophils % 0.5 %; Eosinophils # 0.2 K/mcL (0.0-0.6); Eosinophils % 3.2 %; Hematocrit 40.1 % (37.5-50.1); Hemoglobin 12.1 g/dL (12.9-16.9); Immature Granulocytes % 0.2 % (0-4); Lymphocytes # 0.9 K/mcL (0.6-4.6); Lymphocytes % 14.8 %; Mean Corpuscular HGB Conc 30.2 g/dL (31.6-35.5); Mean Corpuscular Hemoglobin 27.6 pg (28.0-33.3); Mean Corpuscular Volume 91.6 fL (83.0-100.0); Mean Platelet Volume 10.4 fL (9.4-12.4); Monocytes # 0.6 K/mcL (0.0-1.3); Monocytes % 9.6 %; Neutrophils # 4.5 K/mcL (1.6-8.9); Platelet Count 163 K/mcL (140-400); Red Blood Count 4.38 M/mcL (4.19-5.50); Red Cell Distribution Width 14.3 % (11.5-14.5); Segmented Neutrophils % 71.7 %; White Blood Count 6.2 K/mcL (4.3-11.1)
[2019-01-15] MEDS: Insulin LISPRO 300 UNITS/3 ML VIAL SQ SCH (07:36)
[2019-01-15] MEDS: Furosemide 40 MG/4 ML VIAL IVP SCH (07:50)
[2019-01-15] MEDS: Aspirin 81 MG TAB.CHEW PO SCH (07:51)
[2019-01-15] MEDS: Isosorbide MONOnitrate (24 HR) 60 MG TAB.ER.24H PO SCH (07:51)
[2019-01-15] MEDS: Albuterol 2.5 MG/3 ML NEBULIZER IH PRN (08:12)
[2019-01-15] MEDS: Budesonide/Formoterol 160/4.5 1 PUFF INH IH SCH (08:12)
[2019-01-15] MEDS: Tiotropium 18 MCG inhalation IH SCH (08:18)
[2019-01-15 08:34] LABS: BUN/Creatinine Ratio 26 (6-26); Blood Urea Nitrogen 19 mg/dL (8-23); Calcium 9.3 mg/dL (8.6-10.3); Carbon Dioxide > 45 mEq/L (23-29); Chloride 90 mEq/L (98-107); Glucose 157 mg/dL (70-105); Osmolality,Calculated 296 (280-300); Potassium 3.9 mEq/L (3.5-5.1); Sodium 140 mEq/L (136-145); eGFR For African Americans > 60 (> 60); eGFR For Non-African Americans > 60 (> 60)
[2019-01-15] MEDS ORDERED: Metoprolol XL (24 HR) Succ 50 MG TAB.ER.24H PO SCH (09:00)
--- NOTE | 2019-01-15 09:04 | Electrocardiograph Report ---
[place] [id number] Test Date: 2019-01-12 Pat Name: Dru Tamez Department: EDP-12 Room: [facility] Gender: M Group Marketing Vp: : 1955 Requested By: Willie Faustin Order Number: [id number] Reading MD: Royce Chung Measurements Intervals [place] Rate: 125 P: 64 NE: 124 QRS: 195 QRSD: 92 T: 37 QT: 322 QTc: 465 Interpretive Statements Sinus tachycardia Consider right atrial enlargement Right ventricular hypertrophy Electronically Signed On 01-15-2019 9:02:35 EDT by Royce Chung
[2019-01-15 09:06] LABS: Estimated Average Glucose 186 mg/dl
--- NOTE | 2019-01-15 10:11 | Discharge Summary ---
Orders not resulted at time of discharge: Pending orders 01/12/19 16:53 Culture,Blood [BC] Stat Date of Encounter: 01/15/19 Time of Encounter: 09:57 - Discharge Diagnosis (1) Pulmonary edema Priority: Primary Status: Acute Qualifiers: Chronicity: acute Qualified Code(s): J81.0 - Acute pulmonary edema (2) Acute congestive heart failure Priority: Secondary Status: Acute Qualifiers: Heart failure type: diastolic Qualified Code(s): I50.31 - Acute diastolic (congestive) heart failure (3) HTN (hypertension) Priority: Secondary Status: Chronic Qualifiers: Hypertension type: essential hypertension Qualified Code(s): I10 - Essential (primary) hypertension (4) Type 2 diabetes mellitus Priority: Secondary Status: Chronic Qualifiers: 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 Tamez is a 63 year old male who came to emergency room with increased dyspnea. Dr. Bentley saw him on January 13 and performed a history and physical. I assumed his care on January 14. He was started on IV Lasix and increased Toprol dose. Dyspnea lessened and he felt back to baseline by January 15 and stable for discharge home. He will continue higher dose Toprol at discharge. Bumex dose will be increased to 1.5 mg daily. Hemoglobin A1c returned elevated at 8.1%. His PCP can adjust diabetic medications as needed. He will follow with Dr. Tinajero within 1 week. - Time Spent with Patient Total time spent providing and/or coordinating discharge services: - Discharge Medications Prescriptions: New Bumetanide 1.5 mg PO DAILY #45 tablet Metoprolol XL (24 HR) Succ [Toprol Xl] 75 mg PO DAILY #45 tab.er.24h Continued Albuterol Neb [Proventil Neb] 2.5 mg IH Q4HR PRN PRN Reason: Shortness Of Breath/Wheezing Omeprazole [PriLOSEC] 40 mg PO DAILY Tiotropium [Spiriva] 18 mcg IH DAILY Lovastatin 40 mg PO DAILY Insulin Glargine [Lantus] 25 unit SQ HS Sennosides [Senna] 17.2 mg PO HS Albuterol Sulfate [Proventil Inhaler] 2 puff IH Q6HR PRN #1 hfa.aer.ad PRN Reason: Wheezing Polyvinyl Alcohol [Artificial Tears] 1 drop RIGHT EYE QID Docusate Sodium [Dulcolax Stool Softener] 100 mg PO BID PRN PRN Reason: Constipation Nystatin POWDER [Nystop] 1 appl TP BID Potassium Chloride 20 meq PO BIDWM #14 tab.er.prt Budesonide/Formoterol 160/4.5 [Symbicort 160/4.5] 2 puff IH BIDR #1 hfa.aer.ad Isosorbide MONOnitrate (24 HR) [Imdur] 60 mg PO DAILY #30 tab.er.24h Changed Aspirin 81 mg PO Q48H #0 Discontinued Bumetanide 1 mg PO DAILY Lactobacillus [Culturelle] 1 each PO BID #6 cap.sprink Azithromycin [Zithromax] 250 mg PO DAILY #3 tablet Lactobacillus [Culturelle] 1 each PO BID #6 cap.sprink Metoprolol XL (24 HR) Succ [Toprol Xl] 50 mg PO DAILY #30 tab.er.24h Home Medications: Albuterol Neb [Proventil Neb] 2.5 mg IH Q4HR PRN 08/28/15 [History] Lovastatin 40 mg PO DAILY 08/28/15 [History] Omeprazole [PriLOSEC] 40 mg PO DAILY 08/28/15 [History] Tiotropium [Spiriva] 18 mcg IH DAILY 08/28/15 [History] Insulin Glargine [Lantus] 25 unit SQ HS 09/29/15 [History] Sennosides [Senna] 17.2 mg PO HS 05/25/16 [History] Albuterol Sulfate [Proventil Inhaler] 2 puff IH Q6HR PRN #1 hfa.aer.ad 06/27/16 [Rx] Polyvinyl Alcohol [Artificial Tears] 1 drop RIGHT EYE QID 07/14/18 [History] Docusate Sodium [Dulcolax Stool Softener] 100 mg PO BID PRN 07/15/18 [History] Nystatin POWDER [Nystop] 1 appl TP BID 07/15/18 [History] Potassium Chloride 20 meq PO BIDWM #14 tab.er.prt 07/17/18 [Rx] Budesonide/Formoterol 160/4.5 [Symbicort 160/4.5] 2 puff IH BIDR #1 hfa.aer.ad 08/16/18 [Rx] Isosorbide MONOnitrate (24 HR) [Imdur] 60 mg PO DAILY #30 tab.er.24h 12/07/18 [Rx] Aspirin 81 mg PO Q48H #0 01/15/19 [Rx] Bumetanide 1.5 mg PO DAILY #45 tablet 01/15/19 [Rx] Metoprolol XL (24 HR) Succ [Toprol Xl] 75 mg PO DAILY #45 tab.er.24h 01/15/19 [Rx] Allergies/Adverse Reactions: Allergy/AdvReac Type Severity Reaction Status Date / Time No Known Allergies Allergy Verified 12/10/17 17:19 Date of admission: 01/12/19 18:23 Primary care physician: Rowdy Tinajero DO Consults: 01/12/19 22:27 Consult to Insulation Board Coater Operator [CONS] Routine Reason for SW Consult: May need SNF - Constitutional Vitals: Temp Pulse Resp BP Pulse Ox 97.6 F 86 18 110/75 91 01/15/19 06:57 01/15/19 06:57 01/15/19 08:12 01/15/19 06:57 01/15/19 08:12 - Patient Status Disposition: Home Health Service Condition: Fair - Discharge Instructions Follow Up With: Rowdy Tinajero DO [Primary Care Provider] - 1 week - Diet and Activity Activity: resume usual activities as tolerated, wear oxygen at all times Diet: advance to your usual diet - VTE Documentation of Mechanical Device: Graduated compression elastic hosiery
--- NOTE | 2019-01-15 10:17 | Physician Discharge Referral ---
Home Health/Hosp Referral Info Transfer to: Home Health Attending Provider: Armando Provider in Charge Post Discharge: PCP (Tanvi) - Diagnosis (1) Pulmonary edema Priority: Primary Status: Acute (2) Acute congestive heart failure Priority: Secondary Status: Acute (3) HTN (hypertension) Priority: Secondary Status: Chronic (4) Type 2 diabetes mellitus Priority: Secondary Status: Chronic (5) Anemia Priority: Secondary Status: Acute (6) COPD, severe Priority: Secondary Status: Chronic - Respiratory Orders Oxygen / L per min (2 L/m by nasal cannula 29/11) Smoking Cessation: Smoking cessation has been advised. For more information, call the [place] Tobacco Quit Line at 8-978-YIRJ-NOW. - Diet/Nutrition Diet/Nutrition Orders: Cardiac, No Concentrated Sweets - Activity Activity Orders: Ambulate - Services Needed Following services are medically necessary services: Nursing, Home Health Aide, Physical Therapy, Occupational Therapy - Transfer Medications Prescriptions: Bumetanide 1.5 mg PO DAILY #45 tablet Metoprolol XL (24 HR) Succ [Toprol Xl] 75 mg PO DAILY #45 tab.er.24h Home Medications: Albuterol Neb [Proventil Neb] 2.5 mg IH Q4HR PRN 08/28/15 [History] Lovastatin 40 mg PO DAILY 08/28/15 [History] Omeprazole [PriLOSEC] 40 mg PO DAILY 08/28/15 [History] Tiotropium [Spiriva] 18 mcg IH DAILY 08/28/15 [History] Insulin Glargine [Lantus] 25 unit SQ HS 09/29/15 [History] Sennosides [Senna] 17.2 mg PO HS 05/25/16 [History] Albuterol Sulfate [Proventil Inhaler] 2 puff IH Q6HR PRN #1 hfa.aer.ad 06/27/16 [Rx] Polyvinyl Alcohol [Artificial Tears] 1 drop RIGHT EYE QID 07/14/18 [History] Docusate Sodium [Dulcolax Stool Softener] 100 mg PO BID PRN 07/15/18 [History] Nystatin POWDER [Nystop] 1 appl TP BID 07/15/18 [History] Potassium Chloride 20 meq PO BIDWM #14 tab.er.prt 07/17/18 [Rx] Budesonide/Formoterol 160/4.5 [Symbicort 160/4.5] 2 puff IH BIDR #1 hfa.aer.ad 08/16/18 [Rx] Isosorbide MONOnitrate (24 HR) [Imdur] 60 mg PO DAILY #30 tab.er.24h 12/07/18 [Rx] Aspirin 81 mg PO Q48H #0 01/15/19 [Rx] Bumetanide 1.5 mg PO DAILY #45 tablet 01/15/19 [Rx] Metoprolol XL (24 HR) Succ [Toprol Xl] 75 mg PO DAILY #45 tab.er.24h 01/15/19 [Rx] Allergies/Adverse Reactions: Allergy/AdvReac Type Severity Reaction Status Date / Time No Known Allergies Allergy Verified 12/10/17 17:19 Certification: Further, I certify that my clinical findings support that this patient is homebound (i.e. absences from home require considerable and taxing effort and are for medical reasons or baptism services or infrequently or short duration when for other reasons) because: Homebound Reason: Leaving home requires considerable and taxing effort due to condition (Severe dyspnea on exertion with impaired walking ability.) Attestation: My signature below is to certify that this patient is under my care and that I, or nurse practitioner, or a physician's pharmaceutical assistant working with me, has a [id number] encounter with this patient.
== END 2019-01-15 11:40 | disposition home health service (06) ==
LOC: INPPIK 16:04 → EMEROOPIK 16:04 → INPPIK 20:11
PROVIDERS: ADMIT Internal Medicine; ATTEND Internal Medicine

== ENCOUNTER 2019-01-22 11:11 | Inpatient (IN) ==
[2019-01-22] MEDS ORDERED: Furosemide 40 MG/4 ML VIAL IVP ONE (11:20)
--- NOTE | 2019-01-22 11:20 | Emergency Department Note ---
Disposition Clinical Impression: Generalized weakness Congestive heart failure Qualifiers: Heart failure type: unspecified Heart failure chronicity: acute on chronic Qualified Code(s): I50.9 - Heart failure, unspecified Disposition: Admitted As Inpatient Condition: Fair Time of Disposition: 12:12 SOB HPI - General Chief Complaint: ED Shortness of Breath/Dyspnea Stated Complaint: shortness of breath Time Seen by Provider: 01/22/19 11:17 Source: patient, EMS Mode of arrival: EMS Limitations: no limitations Nursing Notes Reviewed: Yes Vital Signs Reviewed: Yes - History of Present Illness Patient has been transported from home by EMS with history of increasing dyspnea. He states he checked his pulse ox at home and it was reading 65%. He is on oxygen at 3 L "24 7". He does report a nonproductive cough and some wheezing. He has had increased lower external swelling. He has not noted a ch grant in weight. Denies fevers, chills or diaphoresis. Denies chest pain or palpitation. Denies a recent change in medicines. He states had similar couple weeks ago was admitted to the hospital. This was for acute pulmonary edema/CHF. Patient completed a breathing treatment at home prior to transport. Pt Subjective Complaint: shortness of breath Onset (ago): day(s) Severity: moderate Consistency/Duration: gradually worsening Improves with: oxygen, rest Worsens with: lying flat, movement Known history of: COPD, congestive heart failure Associated symptoms: Reports: cough, wheezing, orthopnea. Denies: chest pain, pain with inspiration, fever, sputum production, lower extremity pain, polyuria, polydipsia, parasthesias, palpitations, hemoptysis, diaphoresis, nausea/vomiting, syncope, abdominal pain, rash Treatment prior to arrival: oxygen Cough present: Yes Cough Description: Voluntary, Non-Productive - Related Data Home oxygen amount: 3 liters Home Medications Medication Instructions Recorded Confirmed Albuterol Neb [Proventil Neb] 2.5 mg IH Q4HR PRN 08/28/15 12/05/18 Lovastatin 40 mg PO DAILY 08/28/15 12/05/18 Omeprazole [PriLOSEC] 40 mg PO DAILY 08/28/15 12/05/18 Tiotropium [Spiriva] 18 mcg IH DAILY 08/28/15 12/05/18 Insulin Glargine [Lantus] 25 unit SQ HS 09/29/15 12/05/18 Sennosides [Senna] 17.2 mg PO HS 05/25/16 12/05/18 Polyvinyl Alcohol [Artificial 1 drop RIGHT EYE QID 07/14/18 12/05/18 Tears] Docusate Sodium [Dulcolax Stool 100 mg PO BID PRN 07/15/18 12/05/18 Softener] Nystatin POWDER [Nystop] 1 appl TP BID 07/15/18 12/05/18 Previous Rx's Medication Instructions Recorded Albuterol Sulfate [Proventil 2 puff IH Q6HR PRN #1 hfa.aer.ad 06/27/16 Inhaler] Potassium Chloride 20 meq PO BIDWM #14 tab.er.prt 07/17/18 Budesonide/Formoterol 160/4.5 2 puff IH BIDR #1 hfa.aer.ad 08/16/18 [Symbicort 160/4.5] Isosorbide MONOnitrate (24 HR) 60 mg PO DAILY #30 tab.er.24h 12/07/18 [Imdur] Aspirin 81 mg PO Q48H #0 01/15/19 Bumetanide 1.5 mg PO DAILY #45 tablet 01/15/19 Metoprolol XL (24 HR) Succ [Toprol 75 mg PO DAILY #45 tab.er.24h 01/15/19 Xl] Allergies Allergy/AdvReac Type Severity Reaction Status Date / Time No Known Allergies Allergy Verified 12/10/17 17:19 All systems ED: reviewed and negative except as stated. Past Medical History - Past Medical History Attestation: Yes The following information was validated with the patient. Source: patient, old records reviewed, obtained from family, nursing notes reviewed Medical history: Reports: cancer (lung), CHF, COPD, diabetes, GERD, hyperlipidemia, hypertension Surgical history: Reports: sinus surgery, other (Partial lung resection) Psychiatric history: Reports: anxiety, depression - Social History Smoking Status: Former smoker Smokeless Tobacco Status: No Alcohol use: Reports: none Drug use: Reports: none Physical Exam - General Limitations: physical limitation (Hard of hearing), other (Dyspneic and speaking in 2-4 word sentences.) General appearance: alert, in no apparent distress - Head Head exam: atraumatic, normocephalic, normal inspection - Eye Eye exam: Present: normal appearance, PERRL, EOMI. Absent: scleral icterus, conjunctival injection - ENT ENT exam: normal exam, normal oropharynx, mucous membranes moist - Neck Neck exam: Present: normal inspection, full ROM, trachea midline - Chest Chest inspection: Present: normal inspection, symmetric chest wall rise - Respiratory Respiratory exam: Present: normal lung sounds bilaterally, respiratory distress, other (Diminished breath sounds). Absent: wheezes, accessory muscle use, prolonged expiratory phase - Cardiovascular Cardiovascular exam: Present: regular rate, normal rhythm, normal heart sounds. Absent: tachycardia - Abdominal Exam Abdominal exam: Present: soft, Non-Tender, normal bowel sounds. Absent: tenderness, distention, guarding, rebound, rigidity - Extremities Exam Extremities exam: Present: normal inspection, full ROM, normal capillary refill, pedal edema (2+). Absent: tenderness, calf tenderness - Expanded Lower Extremity Exam Neurovascular/Tendon exam: Present: normal capillary refill. Absent: motor deficit, sensory deficit, tendon deficit Gait: not tested/not observed - Neurological Exam Neurological exam: Present: alert, oriented X3 - Psychiatric Psychiatric exam: Present: normal affect, normal mood - Skin Skin exam: Present: warm, dry, intact, normal color. Absent: diaphoresis, pallor Course Course Narrative: 1210: Care has been discussed with Dr. Roberts. Patient has had a stable troponin 0.04. He does have fluid overload for which she will need observation. Dr. Roberts indicates he knows the patient well. Verbal orders are obtained for the patient's observation. Vital Signs Temperature 97.6 F 01/22/19 11:14 Pulse Rate 83 01/22/19 11:14 Respiratory Rate 20 01/22/19 11:14 Blood Pressure 116/77 01/22/19 11:14 O2 Sat by Pulse Oximetry 91 01/22/19 11:14 Temperature 97.6 F 01/22/19 11:14 Pulse Rate 82 01/22/19 12:41 Respiratory Rate 19 01/22/19 12:41 Blood Pressure 112/60 01/22/19 12:41 O2 Sat by Pulse Oximetry 95 01/22/19 12:41 Oxygen Delivery Oxygen Delivery Nasal Cannula Shortness of Breath/Dyspnea - Differential Diagnosis Likely: acute exacerbation of chronic obstructive airways disease, congestive heart failure, asthma with exacerbation - Medical Records Medical records reviewed: Yes I reviewed the patient's medical records. - Lab Data Lab results reviewed: Yes I reviewed the patient's lab results. Result diagrams: 01/22/19 11:36 01/22/19 11:36 Lab Results 01/22/19 01/22/19 01/22/19 Range/Units 11:36 11:36 11:36 WBC 10.3 (4.3-11.1) K/mcL RBC 4.77 (4.19-5.50) M/mcL Hgb 13.0 (12.9-16.9) g/dL Hct 44.7 (37.5-50.1) % MCV 93.7 (83.0-100.0) fL MCH 27.3 L (28.0-33.3) pg MCHC 29.1 L (31.6-35.5) g/dL RDW 14.8 H (11.5-14.5) % Plt Count 215 (140-400) K/mcL MPV 10.9 (9.4-12.4) fL Immature Gran % 0.5 (0-4) % Seg Neutrophils % 77.0 % Lymphocytes % 8.1 % Monocytes % 12.4 % Eosinophils % 1.7 % Basophils % 0.3 % Neutrophils # 7.9 (1.6-8.9) K/mcL Lymphocytes # 0.8 (0.6-4.6) K/mcL Monocytes # 1.3 (0.0-1.3) K/mcL Eosinophils # 0.2 (0.0-0.6) K/mcL Basophils # 0.0 (0.0-0.2) K/mcL PT 15.4 H (9.4-12.1) Seconds INR 1.4 APTT 34.2 (26.0-36.0) Seconds Sodium 143 (136-145) mEq/L Potassium 3.9 (3.5-5.1) mEq/L Chloride 88 L (98-107) mEq/L Carbon Dioxide > 45 H* (23-29) mEq/L BUN 24 H (8-23) mg/dL Creatinine 1.00 (0.70-1.30) mg/dL Est GFR ( Amer) > 60 (> 60) Est GFR (Non-Af Amer) > 60 (> 60) BUN/Creatinine Ratio 24 (6-26) Glucose 138 H (70-105) mg/dL Calculated Osmolality 302 H (280-300) Calcium 9.2 (8.6-10.3) mg/dL Troponin I 0.04 H* (< 0.04) ng/mL B-Natriuretic Peptide (Less than 100) pg/mL 01/22/19 Range/Units 11:36 WBC (4.3-11.1) K/mcL RBC (4.19-5.50) M/mcL Hgb (12.9-16.9) g/dL Hct (37.5-50.1) % MCV (83.0-100.0) fL MCH (28.0-33.3) pg MCHC (31.6-35.5) g/dL RDW (11.5-14.5) % Plt Count (140-400) K/mcL MPV (9.4-12.4) fL Immature Gran % (0-4) % Seg Neutrophils % % Lymphocytes % % Monocytes % % Eosinophils % % Basophils % % Neutrophils # (1.6-8.9) K/mcL Lymphocytes # (0.6-4.6) K/mcL Monocytes # (0.0-1.3) K/mcL Eosinophils # (0.0-0.6) K/mcL Basophils # (0.0-0.2) K/mcL PT (9.4-12.1) Seconds INR APTT (26.0-36.0) Seconds Sodium (136-145) mEq/L Potassium (3.5-5.1) mEq/L Chloride (98-107) mEq/L Carbon Dioxide (23-29) mEq/L BUN (8-23) mg/dL Creatinine (0.70-1.30) mg/dL Est GFR ( Amer) (> 60) Est GFR (Non-Af Amer) (> 60) BUN/Creatinine Ratio (6-26) Glucose (70-105) mg/dL Calculated Osmolality (280-300) Calcium (8.6-10.3) mg/dL Troponin I (< 0.04) ng/mL B-Natriuretic Peptide 913 H (Less than 100) pg/mL - Radiology Data Radiology results reviewed: Yes I reviewed the patient's radiology results. Single view chest x-rays performed. This demonstrates interstitial edema consistent with some heart failure as well as some fluid in the right horizontal fissure. Patient has increased density around the right infrahilar region for which an infiltrate could be considered. I do not see evidence for pneumothorax. He does have scant right and left-sided pleural effusions. He has cardiomegaly which appear stable. Imaging does not appear changed from 01/12/2019. This is on my interpretation. Impressions Chest X-Ray 01/22/19 12:04 IMPRESSION: Slight pulmonary vascular congestion significantly improved from 01/12/2019. Very small bilateral pleural effusions. Slight to mild bibasilar atelectasis. Slight cardiomegaly. D/ / Santiago Montoya MD / Santiago Montoya MD Interpreting Provider: Santiago Montoya MD - EKG Data EKG attestation: Yes I reviewed and interpreted this EKG. EKG shows normal: Reports: sinus rhythm, axis, intervals, QRS complexes, ST-T waves Rate: Reports: normal P waves: Reports: GENNA Interpretation: Reports: no acute changes, nonspecific ST-T wave changes
[2019-01-22 11:44] LABS: Basophils % 0.3 %; Eosinophils # 0.2 K/mcL (0.0-0.6); Eosinophils % 1.7 %; Hematocrit 44.7 % (37.5-50.1); Immature Granulocytes % 0.5 % (0-4); Lymphocytes # 0.8 K/mcL (0.6-4.6); Lymphocytes % 8.1 %; Mean Corpuscular HGB Conc 29.1 g/dL (31.6-35.5); Mean Corpuscular Hemoglobin 27.3 pg (28.0-33.3); Mean Corpuscular Volume 93.7 fL (83.0-100.0); Mean Platelet Volume 10.9 fL (9.4-12.4); Monocytes # 1.3 K/mcL (0.0-1.3); Monocytes % 12.4 %; Neutrophils # 7.9 K/mcL (1.6-8.9); Platelet Count 215 K/mcL (140-400); Red Blood Count 4.77 M/mcL (4.19-5.50); Red Cell Distribution Width 14.8 % (11.5-14.5); White Blood Count 10.3 K/mcL (4.3-11.1)
[2019-01-22 11:51] LABS: INR 1.4; Prothrombin Time 15.4 Seconds (9.4-12.1)
[2019-01-22 11:54] LABS: Activated Partial Thrombo Time 34.2 Seconds (26.0-36.0)
[2019-01-22 12:04] LABS: BUN/Creatinine Ratio 24 (6-26); Blood Urea Nitrogen 24 mg/dL (8-23); Calcium 9.2 mg/dL (8.6-10.3); Carbon Dioxide > 45 mEq/L (23-29); Chloride 88 mEq/L (98-107); Glucose 138 mg/dL (70-105); Osmolality,Calculated 302 (280-300); Potassium 3.9 mEq/L (3.5-5.1); Sodium 143 mEq/L (136-145); Troponin I 0.04 ng/mL (< 0.04); eGFR For African Americans > 60 (> 60); eGFR For Non-African Americans > 60 (> 60)
[2019-01-22] MEDS ORDERED: MOM Conc 10 ML UD.LIQ PO PRN (12:37)
[2019-01-22] MEDS ORDERED: D5% in Water 1,000 ML IVC PRN (12:37)
[2019-01-22] MEDS ORDERED: *HR* Dextrose 50 % in Water (Syg) 50 ML SYRINGE IVP PRN (12:37)
[2019-01-22] MEDS ORDERED: Dextrose Gel 15 GM/37.5 ML TUBE PO PRN ×2 (12:37)
[2019-01-22] MEDS ORDERED: Naloxone 0.4 MG/ML INJ IVP PRN (12:37)
--- NOTE | 2019-01-22 14:04 | Electrocardiograph Report ---
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
--- NOTE | 2019-01-22 15:53 | Internal Med History&Physical ---
Date of Encounter: 01/22/19 Time of Encounter: 15:35 Assessment and Plan (1) Congestive heart failure Current visit: Yes Status: Acute Likely due in part to noncompliance with medication adjustment from discharge 01/16/2016. He will be given IV diuretics. Toprol-XL will be given and further workup as needed. Qualifiers: Heart failure type: diastolic Heart failure chronicity: acute on chronic Qualified Code(s): I50.33 - Acute on chronic diastolic (congestive) heart failure Internal Medicine - H&P: HPI Chief complaint: Dyspnea and cough Admitted From: Emergency Dept Plans for Post Hospital Care: Home History of present illness: Mr. Tamez is a 63 year old male came to emergency room stating he had progressive dyspnea with cough productive yellow and green sputum over the past few days. He had chronic ongoing abdominal discomfort. He states his oxygen level was approximately 75% saturation home. He came to emergency room and was evaluated and was felt to have exacerbation of heart failure. He was admitted to [facility] floor for ongoing care needs. He was discharged from [facility] 01/16/2016 after admission for pulmonary edema/CHF. Bumex and metoprolol XL doses were increased but he has not been taking the higher dose according to his mother who supplies some of the history. He denies ME hypertension heart failure angina DVT or pulmonary embolus. Echocardiogram 07/04/2017 showed LVEF of 55-60%. There was indeterminate diastolic function reported. E to A ratio was 1.2. There was severe pulmonary hypertension with estimated RVSP 68 mmHg. There was mild tricuspid and pulmonic regurgitation seen. The interventricular septum and posterior wall thickness measurements were 1.12 and 0.83 cm respectively. He ambulates very little at home and uses a motorized scooter. Past Med Surg Social Fam HX - Past Medical History Medical history: cancer, CHF, COPD, diabetes, GERD, hyperlipidemia, hypertension Additional medical history: Lung cancer Psychiatric history: anxiety, depression - Past Surgical History Surgical History: sinus surgery, other Additional surgical history: patrial lung removed, 20 years ago, family unsure of reason, maybe scar tissue - Social History Smoking Status: Former smoker Smokeless Tobacco Status: No Alcohol use: none Drug use: none - Family History Father Adopted: No Family Member Ethnicity: Non- Living Status: Hx Family Cardiac Disorders: No Hx Family Respiratory Disorders: Yes Hx Family Cancer: No Hx Family GI Disorders: No Hx Family Endocrine Disorder: No Hx Family Neuromuscular Disorders: No Hx Family Neurologic Disorders: No Hx Family HEENT Disorders: No Hx Family Autoimmune Disorders: No Internal Medicine - H&P: Meds Albuterol Neb [Proventil Neb] 2.5 mg IH Q4HR PRN 08/28/15 [History] Lovastatin 40 mg PO DAILY 08/28/15 [History] Omeprazole [PriLOSEC] 40 mg PO DAILY 08/28/15 [History] Tiotropium [Spiriva] 18 mcg IH DAILY 08/28/15 [History] Insulin Glargine [Lantus] 25 unit SQ HS 09/29/15 [History] Sennosides [Senna] 17.2 mg PO HS 05/25/16 [History] Albuterol Sulfate [Proventil Inhaler] 2 puff IH Q6HR PRN #1 hfa.aer.ad 06/27/16 [Rx] Polyvinyl Alcohol [Artificial Tears] 1 drop RIGHT EYE QID 07/14/18 [History] Docusate Sodium [Dulcolax Stool Softener] 100 mg PO BID PRN 07/15/18 [History] Nystatin POWDER [Nystop] 1 appl TP BID 07/15/18 [History] Potassium Chloride 20 meq PO BIDWM #14 tab.er.prt 07/17/18 [Rx] Budesonide/Formoterol 160/4.5 [Symbicort 160/4.5] 2 puff IH BIDR #1 hfa.aer.ad 08/16/18 [Rx] Isosorbide MONOnitrate (24 HR) [Imdur] 60 mg PO DAILY #30 tab.er.24h 12/07/18 [Rx] Aspirin 81 mg PO Q48H #0 01/15/19 [Rx] Bumetanide 1.5 mg PO DAILY #45 tablet 01/15/19 [Rx] Metoprolol XL (24 HR) Succ [Toprol Xl] 75 mg PO DAILY #45 tab.er.24h 01/15/19 [Rx] 3 Allergy/AdvReac Type Severity Reaction Status Date / Time No Known Allergies Allergy Verified 12/10/17 17:19 All Systems PM: A 10-system review of systems was performed and is negative for pertinent findings except as documented above in the HPI. Review of systems: Review of systems from his November 2018 [facility] hospitalization were reviewed and revised as below Gen.: His weight decreased from 99.972 kg at August 2018 hospitalization to 93.93 9 kg on admission November 2018 but has risen to 97.069 kg today. Cardiovascular: As per history of present illness Respiratory: He smoked from age [age] up to 4 packs per day. 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 He was not felt to be a surgical candidate. He received concurrent chemoradiation therapy with weekly carboplatin and Taxol with external beam XRT completed on 06/10/2015. He had chest and abdomen CT 05/24/2018 at [facility]. There was no evide nce of recurrent malignancy seen in the chest. Abdominal CT showed no evidence of metastatic disease in the abdomen. 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 Chest CTA 10/03/2018 at [facility] emergency room showed no additional abnormalities. He has a diagnosis of COPD and wears oxygen 29/11. He has had 2 thoracentesis procedures in the past but does not know definite results. GI: He has no known disorder of his liver gallbladder or exocrine pancreas : There is no known hematuria dysuria or kidney stones Neurologic: No history of large distribution strokes or seizures. He does have severe hearing loss. Endocrine: He has been diagnosed with DM 2 approximately 2014 with his most recent hemoglobin A1c 7.4% on 10/09/2018. He has hyperlipidemia. TSH was suppressed at 0.277 on 08/30/2015 but was normal at 1.947 on 07/14/2018. Hematology/oncology: There is no known blood disorders. He had lung cancer as per above. There are no other known malignancies. Psychiatric: He has major depressive disorder and panic attacks. Musk skeletal: He has DJD but no known gout or osteoporosis - Constitutional Vitals: Temp Pulse Resp BP Pulse Ox 98.4 F 87 14 100/70 93 01/22/19 13:51 01/22/19 13:51 01/22/19 13:51 01/22/19 13:51 01/22/19 13:51 Exam: Gen.: He is a well-developed overweight male sitting in bed who appears in no acute distress HEENT: Head is atraumatic and normocephalic. Eyes: EOMI. There is no scleral i cterus. Mouth: Mucosa is moist. Neck: Supple and nontender. There is no thyromegaly or adenopathy noted. Heart: Regular without murmurs gallops or ectopics Lungs: No wheezes or crackles are heard. Abdomen: He has a 2 cm umbilical hernia that is reducible. No masses or guarding are noted. Extremities: He has 1-2+ edema of the left lower leg and trace to 1+ of the right lower leg. His feet are warm to touch. He has ecchymosis of the left first MTP joint area. Neurologic: Mental status: He is talkative and a fair historian. He does not per some details of his history. Cranial nerves: Smile is symmetric. Forehead wrinkles bilaterally. Tongue protrudes midline. EOMI. He is hard of hearing. Motor: Grossly intact without further formal testing done. Skin: Warm and dry Internal Med - H&P Results - Labs CBC & Chem 7: 01/22/19 11:36 01/22/19 11:36 Labs: Short CBC 01/22/19 Range/Units 11:36 WBC 10.3 (4.3-11.1) K/mcL Hgb 13.0 (12.9-16.9) g/dL Hct 44.7 (37.5-50.1) % Plt Count 215 (140-400) K/mcL Neutrophils # 7.9 (1.6-8.9) K/mcL BMP 01/22/19 11:36 Sodium 143 Potassium 3.9 Chloride 88 L Carbon Dioxide > 45 H* BUN 24 H Creatinine 1.00 Glucose 138 H Calcium 9.2 Cardiac Enzymes 01/22/19 Range/Units 11:36 Troponin I 0.04 H* (< 0.04) ng/mL - Impressions ITS Impressions Chest X-Ray 01/22/19 12:04 IMPRESSION: Slight pulmonary vascular congestion significantly improved from 01/12/2019. Very small bilateral pleural effusions. Slight to mild bibasilar atelectasis. Slight cardiomegaly. D/ / Santiago Montoya MD / Santiago Montoya MD Interpreting Provider: Santiago Montoya MD
[2019-01-22] MEDS: Insulin LISPRO 300 UNITS/3 ML VIAL SQ SCH (16:29)
[2019-01-22] MEDS: Ipratropium/Albuterol Neb 3 ML IH SCH ×2 (16:39→21:03)
[2019-01-22] MEDS: Furosemide 40 MG/4 ML VIAL IVP SCH (16:47)
[2019-01-22] MEDS: Mag Hydrox/Al Hydrox/Simeth 30 ML UDC PO PRN (20:33)
[2019-01-23] MEDS: Ondansetron ODT 4 MG TAB.RAPDIS SL PRN (03:37)
[2019-01-23] MEDS: Ipratropium/Albuterol Neb 3 ML IH SCH (05:14)
[2019-01-23 07:28] LABS: Basophils % 0.4 %; Eosinophils # 0.2 K/mcL (0.0-0.6); Eosinophils % 1.6 %; Hematocrit 43.1 % (37.5-50.1); Hemoglobin 12.5 g/dL (12.9-16.9); Immature Granulocytes % 0.6 % (0-4); Lymphocytes # 0.8 K/mcL (0.6-4.6); Mean Corpuscular Hemoglobin 27.5 pg (28.0-33.3); Mean Corpuscular Volume 94.7 fL (83.0-100.0); Mean Platelet Volume 10.7 fL (9.4-12.4); Monocytes # 1.2 K/mcL (0.0-1.3); Monocytes % 12.2 %; Neutrophils # 7.7 K/mcL (1.6-8.9); Platelet Count 212 K/mcL (140-400); Red Blood Count 4.55 M/mcL (4.19-5.50); Red Cell Distribution Width 14.8 % (11.5-14.5); Segmented Neutrophils % 77.2 %; White Blood Count 9.9 K/mcL (4.3-11.1)
[2019-01-23] MEDS: Metoprolol XL (24 HR) Succ 50 MG TAB.ER.24H PO SCH (07:55)
[2019-01-23 07:56] LABS: BUN/Creatinine Ratio 26 (6-26); Blood Urea Nitrogen 22 mg/dL (8-23); Calcium 9.1 mg/dL (8.6-10.3); Carbon Dioxide > 45 mEq/L (23-29); Chloride 87 mEq/L (98-107); Glucose 151 mg/dL (70-105); Magnesium 1.9 mg/dL (1.6-2.6); Osmolality,Calculated 306 (280-300); Potassium 3.7 mEq/L (3.5-5.1); Sodium 145 mEq/L (136-145); eGFR For African Americans > 60 (> 60); eGFR For Non-African Americans > 60 (> 60)
[2019-01-23] MEDS ORDERED: *HR* Adenosine 6 MG/2 ML VIAL IVP ONE (08:12)
[2019-01-23] MEDS: Insulin LISPRO 300 UNITS/3 ML VIAL SQ SCH ×3 (09:28→17:42)
[2019-01-23] MEDS: Furosemide 40 MG/4 ML VIAL IVP SCH ×2 (09:40→17:43)
--- NOTE | 2019-01-23 09:44 | Internal Med Progress Note ---
Date of Encounter: 01/23/19 Time of Encounter: 09:20 - Assessment and plan (1) Congestive heart failure Current Visit: Yes Status: Acute Assessment and plan: January 23. BN peptide unimproved at 960. Continue IV Lasix and Toprol-XL. Lanoxin will be added. Qualifiers: Heart failure type: diastolic Heart failure chronicity: acute on chronic Qualified Code(s): I50.33 - Acute on chronic diastolic (congestive) heart failure (2) COPD, severe Current Visit: No Status: Chronic Assessment and plan: January 23. Scheduled DuoNebs will be discontinued to lessen tachycardia. Symbicort will be restarted. Albuterol nebs will be ordered - Subjective Interval history: January 23. He has no new complaints. Staff reported heart rate this morning was 130-140/m. - Constitutional Vitals: Temp Pulse Resp BP Pulse Ox 98.6 F 139 26 125/89 86 01/23/19 07:20 01/23/19 09:35 01/23/19 08:03 01/23/19 09:35 01/23/19 08:03 Exam: He is sitting in bed and appears in minimal respiratory distress. He is wearing BiPAP. Heart is tachycardic rate approximately 140/m. Lungs show diminished breath sounds diffusely. No wheezing is heard. Extremities show trace to 1+ edema bilaterally. I reviewed his medications and lab results. Internal Medicine: Result - Labs CBC & Chem 7: 01/23/19 07:10 01/23/19 07:10 Labs: Short CBC 01/22/19 01/23/19 Range/Units 11:36 07:10 WBC 10.3 9.9 (4.3-11.1) K/mcL Hgb 13.0 12.5 L (12.9-16.9) g/dL Hct 44.7 43.1 (37.5-50.1) % Plt Count 215 212 (140-400) K/mcL Neutrophils # 7.9 7.7 (1.6-8.9) K/mcL BMP 01/22/19 01/23/19 11:36 07:10 Sodium 143 145 Potassium 3.9 3.7 Chloride 88 L 87 L Carbon Dioxide > 45 H* > 45 H* BUN 24 H 22 Creatinine 1.00 0.85 Glucose 138 H 151 H Calcium 9.2 9.1 Cardiac Enzymes 01/22/19 Range/Units 11:36 Troponin I 0.04 H* (< 0.04) ng/mL - ABG Interpretation ABG results: PT/INR, D-dimer PT 15.4 Seconds (9.4-12.1) H 01/22/19 11:36 - Impressions Impressions Chest X-Ray 01/22/19 12:04 IMPRESSION: Slight pulmonary vascular congestion significantly improved from 01/12/2019. Very small bilateral pleural effusions. Slight to mild bibasilar atelectasis. Slight cardiomegaly. D/ / Santiago Montoya MD / Santiago Montoya MD Interpreting Provider: Santiago Montoya MD Consult Discharge Plan - Plan
[2019-01-23] MEDS: *HR* Digoxin 0.25 MG TABLET PO SCH (10:08)
[2019-01-23] MEDS: *HR* Enoxaparin 40 MG/0.4 ML SYRINGE SQ SCH (10:08)
[2019-01-23] MEDS: methylPREDNISolone 125 MG/2 ML VIAL IVP SCH ×3 (10:09→23:35)
[2019-01-23 10:27] LABS: ABG Base Excess 19 mEq/L (-2 to 3); ABG HCO3 54 mEq/L (21-27); ABG Oxygen Saturation 89 % (95-98); ABG PCO2 127 mmHg (35-45); ABG PH 7.24 pH Units (7.32-7.45); ABG PO2 75 mmHg (85-104); ABG TCO2 > 50 mEq/L (20-26); Blood Gas Modality BiLevel
[2019-01-23] MEDS: Budesonide/Formoterol 160/4.5 1 PUFF INH IH SCH ×2 (11:19→22:06)
[2019-01-23 11:51] LABS: ABG Base Excess 19 mEq/L (-2 to 3); ABG HCO3 55 mEq/L (21-27); ABG Oxygen Saturation 89 % (95-98); ABG PCO2 121 mmHg (35-45); ABG PH 7.26 pH Units (7.32-7.45); ABG PO2 72 mmHg (85-104); ABG TCO2 > 50 mEq/L (20-26)
--- NOTE | 2019-01-23 16:05 | Electrocardiograph Report ---
[place] [id number] Test Date: 2019-01-23 Pat Name: Dru Tamez Department: [id number] Room: [facility] Gender: M Microbiology Supervisor: [id number] : [id number] Requested By: Felipe Roberts Order Number: [id number] Reading MD: Johanna Dsouza Measurements Intervals [place] Rate: 140 P: 61 OK: 126 QRS: 169 QRSD: 94 T: 50 QT: 370 QTc: 451 Interpretive Statements SINUS TACHYCARDIA PATTERN CONSISTENT WITH PULMONARY DISEASE INCOMPLETE RIGHT BUNDLE BRANCH BLOCK [90+ ms QRS DURATION, TERMINAL R IN V1/V2, 40+ ms S IN I/aVL/V4/V5/V6] Electronically Signed On 01-23-2019 16:03:30 EDT by Johanna Dsouza
[2019-01-23 16:37] LABS: ABG Base Excess 19 mEq/L (-2 to 3); ABG HCO3 51 mEq/L (21-27); ABG Oxygen Saturation 87 % (95-98); ABG PCO2 105 mmHg (35-45); ABG PO2 65 mmHg (85-104); ABG TCO2 > 50 mEq/L (20-26); Blood Gas Modality BiLevel
[2019-01-24] MEDS: *HR* Enoxaparin 40 MG/0.4 ML SYRINGE SQ SCH (06:03)
[2019-01-24 07:31] LABS: Basophils % 0.1 %; Hematocrit 39.9 % (37.5-50.1); Hemoglobin 11.5 g/dL (12.9-16.9); Immature Granulocytes % 0.5 % (0-4); Lymphocytes # 0.4 K/mcL (0.6-4.6); Lymphocytes % 5.2 %; Mean Corpuscular HGB Conc 28.8 g/dL (31.6-35.5); Mean Corpuscular Hemoglobin 27.1 pg (28.0-33.3); Mean Corpuscular Volume 93.9 fL (83.0-100.0); Mean Platelet Volume 10.9 fL (9.4-12.4); Monocytes # 0.3 K/mcL (0.0-1.3); Neutrophils # 7.2 K/mcL (1.6-8.9); Platelet Count 208 K/mcL (140-400); Red Blood Count 4.25 M/mcL (4.19-5.50); Red Cell Distribution Width 14.4 % (11.5-14.5); Segmented Neutrophils % 90.2 %; White Blood Count 7.9 K/mcL (4.3-11.1)
[2019-01-24 07:54] LABS: ABG Base Excess 22 mEq/L (-2 to 3); ABG HCO3 54 mEq/L (21-27); ABG Oxygen Saturation 92 % (95-98); ABG PCO2 100 mmHg (35-45); ABG PH 7.34 pH Units (7.32-7.45); ABG PO2 75 mmHg (85-104); ABG TCO2 > 50 mEq/L (20-26)
[2019-01-24 08:11] LABS: Hypochromasia Present (Not Present)
[2019-01-24] MEDS: *HR* Digoxin 0.25 MG TABLET PO SCH (09:05)
[2019-01-24] MEDS: methylPREDNISolone 125 MG/2 ML VIAL IVP SCH (09:05)
[2019-01-24] MEDS: Furosemide 40 MG/4 ML VIAL IVP SCH (09:05)
[2019-01-24] MEDS: Metoprolol XL (24 HR) Succ 50 MG TAB.ER.24H PO SCH (09:05)
[2019-01-24] MEDS: Insulin LISPRO 300 UNITS/3 ML VIAL SQ SCH ×3 (09:06→17:25)
[2019-01-24 09:33] LABS: Alanine Aminotransferase 12 Units/L (7-52); Albumin 3.6 g/dL (3.5-5.7); Albumin/Globulin Ratio 1.3 (1.1-2.2); Alkaline Phosphatase 67 Units/L (34-104); Aspartate Amino Transferase 15 Units/L (13-39); BUN/Creatinine Ratio 39 (6-26); Bilirubin,Total 1.1 mg/dL (0.3-1.0); Blood Urea Nitrogen 37 mg/dL (8-23); Calcium 9.3 mg/dL (8.6-10.3); Carbon Dioxide > 45 mEq/L (23-29); Chloride 83 mEq/L (98-107); Globulin 2.8 g/dL (2.4-3.5); Glucose 210 mg/dL (70-105); Osmolality,Calculated 305 (280-300); Potassium 4.4 mEq/L (3.5-5.1); Sodium 140 mEq/L (136-145); Total Protein 6.4 g/dL (6.4-8.9); eGFR For African Americans > 60 (> 60); eGFR For Non-African Americans > 60 (> 60)
--- NOTE | 2019-01-24 10:03 | Internal Med Progress Note ---
Date of Encounter: 01/24/19 Time of Encounter: 09:55 - Assessment and plan (1) Congestive heart failure Current Visit: Yes Status: Acute Assessment and plan: January 23. BN peptide unimproved at 960. Continue IV Lasix and Toprol-XL. Lanoxin will be added. January 24. BN peptide has risen slightly to 1106. BUN and creatinine have risen to 37 and 0.96 respectively. Continue IV Lasix but reduce dose to 40 mg daily. Continue Toprol-XL and Lanoxin. Qualifiers: Heart failure type: diastolic Heart failure chronicity: acute on chronic Qualified Code(s): I50.33 - Acute on chronic diastolic (congestive) heart failure (2) COPD, severe Current Visit: No Status: Chronic Assessment and plan: January 23. Scheduled DuoNebs will be discontinued to lessen tachycardia. Symbicort will be restarted. Albuterol nebs will be ordered January 24. Continue Symbicort. Discontinue Solu-Medrol and start oral prednisone. (3) Urinary retention Current Visit: Yes Status: Acute Assessment and plan: January 24. Bladder scan showed more than 400 mL urine earlier today. Stack catheter was inserted. He will be started on Flomax and Proscar. (4) Type 2 diabetes mellitus Current Visit: No Status: Chronic Assessment and plan: January 24. Hemoglobin A1c was 8.1% on 01/15/2019. Levemir has been held. Continue Accu-Cheks with SSI. Qualifiers: Diabetes mellitus fdc insulin use: with fdc use Diabetes mellitus complication status: without complication Qualified Code(s): E11.9 - Type 2 diabetes mellitus without complications; Z79.4 - computer terminal operator (current) use of insulin - Subjective Interval history: January 23. He has no new complaints. Staff reported heart rate this morning was 130-140/m. January 24. He has no new complaints. - Constitutional Vitals: Temp Pulse Resp BP Pulse Ox 98.2 F 104 17 110/76 91 01/24/19 06:55 01/24/19 06:55 01/24/19 06:55 01/24/19 06:55 01/24/19 06:55 Exam: He is resting comfortably in bed wearing BiPAP. He is more awake and alert. Heart is regular with rate approximately 100 per minute. Lungs are clear anteriorly. Extremities show trace pitting edema of the lower anterior shins bilaterally. I reviewed his medications and lab results. Internal Medicine: Result - Labs CBC & Chem 7: 01/24/19 07:15 01/24/19 07:15 Labs: Short CBC 01/24/19 Range/Units 07:15 WBC 7.9 (4.3-11.1) K/mcL Hgb 11.5 L (12.9-16.9) g/dL Hct 39.9 (37.5-50.1) % Plt Count 208 (140-400) K/mcL Neutrophils # 7.2 (1.6-8.9) K/mcL BMP 01/24/19 07:15 Sodium 140 Potassium 4.4 Chloride 83 L Carbon Dioxide > 45 H* BUN 37 H Creatinine 0.96 Glucose 210 H Calcium 9.3 Liver Function 01/24/19 Range/Units 07:15 Total Bilirubin 1.1 H (0.3-1.0) mg/dL AST 15 (13-39) Units/L ALT 12 (7-52) Units/L Alkaline Phosphatase 67 (34-104) Units/L Albumin 3.6 (3.5-5.7) g/dL - ABG Interpretation ABG results: ABG ABG pH 7.34 pH Units (7.32-7.45) 01/24/19 07:49 ABG pCO2 100 mmHg (35-45) H* 01/24/19 07:49 ABG pO2 75 mmHg (85-104) L 01/24/19 07:49 ABG O2 Saturation 92 % (95-98) L 01/24/19 07:49 PT/INR, D-dimer PT 15.4 Seconds (9.4-12.1) H 01/22/19 11:36 Consult Discharge Plan - Plan Referrals: Rowdy Tinajero DO [Primary Care Provider] - 1 week
[2019-01-24] MEDS: Budesonide/Formoterol 160/4.5 1 PUFF INH IH SCH ×3 (10:11→22:42)
[2019-01-24] MEDS: Finasteride 5 MG TABLET PO SCH (12:40)
[2019-01-24] MEDS: Albuterol 2.5 MG/3 ML NEBULIZER IH PRN ×2 (14:34→22:41)
[2019-01-24] MEDS: predniSONE 10 MG TABLET PO SCH (17:25)
[2019-01-25] MEDS: Acetaminophen 325 MG TABLET PO PRN ×3 (01:48→14:28)
[2019-01-25] MEDS: *HR* Enoxaparin 40 MG/0.4 ML SYRINGE SQ SCH (06:02)
[2019-01-25 06:57] LABS: Eosinophils % 0.1 %; Hematocrit 37.3 % (37.5-50.1); Hemoglobin 11.1 g/dL (12.9-16.9); Immature Granulocytes % 0.4 % (0-4); Lymphocytes # 0.9 K/mcL (0.6-4.6); Lymphocytes % 7.9 %; Mean Corpuscular HGB Conc 29.8 g/dL (31.6-35.5); Mean Corpuscular Hemoglobin 27.3 pg (28.0-33.3); Mean Corpuscular Volume 91.9 fL (83.0-100.0); Mean Platelet Volume 11.3 fL (9.4-12.4); Monocytes # 1.1 K/mcL (0.0-1.3); Monocytes % 9.1 %; Neutrophils # 9.7 K/mcL (1.6-8.9); Platelet Count 207 K/mcL (140-400); Red Blood Count 4.06 M/mcL (4.19-5.50); Red Cell Distribution Width 14.1 % (11.5-14.5); Segmented Neutrophils % 82.5 %; White Blood Count 11.8 K/mcL (4.3-11.1)
[2019-01-25 07:30] LABS: BUN/Creatinine Ratio 37 (6-26); Blood Urea Nitrogen 30 mg/dL (8-23); Calcium 9.2 mg/dL (8.6-10.3); Carbon Dioxide > 45 mEq/L (23-29); Chloride 84 mEq/L (98-107); Glucose 220 mg/dL (70-105); Osmolality,Calculated 303 (280-300); Potassium 4.3 mEq/L (3.5-5.1); Sodium 140 mEq/L (136-145); eGFR For African Americans > 60 (> 60); eGFR For Non-African Americans > 60 (> 60)
[2019-01-25] MEDS: Furosemide 40 MG/4 ML VIAL IVP SCH (08:08)
[2019-01-25] MEDS: predniSONE 10 MG TABLET PO SCH (08:09)
[2019-01-25] MEDS: Metoprolol XL (24 HR) Succ 50 MG TAB.ER.24H PO SCH (08:09)
[2019-01-25] MEDS: Finasteride 5 MG TABLET PO SCH (08:09)
[2019-01-25] MEDS: *HR* Digoxin 0.25 MG TABLET PO SCH (08:10)
[2019-01-25] MEDS: Insulin LISPRO 300 UNITS/3 ML VIAL SQ SCH ×3 (08:14→17:52)
[2019-01-25] MEDS: Budesonide/Formoterol 160/4.5 1 PUFF INH IH SCH ×2 (09:21→21:25)
--- NOTE | 2019-01-25 15:57 | Internal Med Progress Note ---
Date of Encounter: 01/25/19 Time of Encounter: 11:15 - Assessment and plan (1) Congestive heart failure Current Visit: Yes Status: Acute Assessment and plan: January 23. BN peptide unimproved at 960. Continue IV Lasix and Toprol-XL. Lanoxin will be added. January 24. BN peptide has risen slightly to 1106. BUN and creatinine have risen to 37 and 0.96 respectively. Continue IV Lasix but reduce dose to 40 mg daily. Continue Toprol-XL and Lanoxin. January 25. BN peptide improved to 569. Continue present Rx. Qualifiers: Heart failure type: diastolic Heart failure chronicity: acute on chronic Qualified Code(s): I50.33 - Acute on chronic diastolic (congestive) heart failure (2) COPD, severe Current Visit: No Status: Chronic Assessment and plan: January 23. Scheduled DuoNebs will be discontinued to lessen tachycardia. Symbicort will be restarted. Albuterol nebs will be ordered January 24. Continue Symbicort. Discontinue Solu-Medrol and start oral prednisone. (3) Urinary retention Current Visit: Yes Status: Acute Assessment and plan: January 24. Bladder scan showed more than 400 mL urine earlier today. Stack catheter was inserted. He will be started on Flomax and Proscar. January 25. Stack catheter will be discontinued. Continue Flomax and Proscar. (4) Type 2 diabetes mellitus Current Visit: No Status: Chronic Assessment and plan: January 24. Hemoglobin A1c was 8.1% on 01/15/2019. Levemir has been held. Continue Accu-Cheks with SSI. January 25. Blood sugars acceptable overall. Continue to monitor. Qualifiers: Diabetes mellitus terminal supervisor insulin use: with [facility] use Diabetes mellitus complication status: without complication Qualified Code(s): E11.9 - Type 2 diabetes mellitus without complications; Z79.4 - intermediate (current) use of insulin - Subjective Interval history: January 23. He has no new complaints. Staff reported heart rate this morning was 130-140/m. January 24. He has no new complaints. January 25. He has no new complaints. - Constitutional Vitals: Temp Pulse Resp BP Pulse Ox 97.9 F 85 20 108/66 97 01/25/19 14:19 01/25/19 14:19 01/25/19 14:01/25/19 14:19 01/25/19 14:19 Exam: He is resting comfortably in bed and appears in no acute distress. He is wearing oxygen by nasal cannula. Lungs show few rhonchi more on the right than the left. Heart is regular without murmurs gallops or ectopics. Extremities show 0 to trace pitting edema. I reviewed his medications and lab results. Internal Medicine: Result - Labs CBC & Chem 7: 01/25/19 06:35 01/25/19 06:35 Labs: Short CBC 01/25/19 Range/Units 06:35 WBC 11.8 H (4.3-11.1) K/mcL Hgb 11.1 L (12.9-16.9) g/dL Hct 37.3 L (37.5-50.1) % Plt Count 207 (140-400) K/mcL Neutrophils # 9.7 H (1.6-8.9) K/mcL BMP 01/25/19 06:35 Sodium 140 Potassium 4.3 Chloride 84 L Carbon Dioxide > 45 H* BUN 30 H Creatinine 0.82 Glucose 220 H Calcium 9.2 - ABG Interpretation ABG results: ABG ABG pH 7.34 pH Units (7.32-7.45) 01/24/19 07:49 ABG pCO2 100 mmHg (35-45) H* 01/24/19 07:49 ABG pO2 75 mmHg (85-104) L 01/24/19 07:49 ABG O2 Saturation 92 % (95-98) L 01/24/19 07:49 PT/INR, D-dimer PT 15.4 Seconds (9.4-12.1) H 01/22/19 11:36 - Impressions Impressions Chest X-Ray 01/24/19 15:23 IMPRESSION: The appearance is similar to the prior exam with suspected pulmonary edema and bilateral pleural effusions. Underlying basilar pneumonia is difficult to exclude. D/ : / 01/24/2019 15:34:52 Matthew Jeffries MD / david Interpreting Provider: Matthew Jeffries MD Consult Discharge Plan - Plan Referrals: Stiltner,Rowdy D, DO [Primary Care Provider] - 1 week
[2019-01-25] MEDS: Mag Hydrox/Al Hydrox/Simeth 30 ML UDC PO PRN (20:04)
[2019-01-26] MEDS: Ondansetron ODT 4 MG TAB.RAPDIS SL PRN (01:07)
[2019-01-26] MEDS: *HR* Enoxaparin 40 MG/0.4 ML SYRINGE SQ SCH (05:27)
[2019-01-26 06:35] LABS: Basophils % 0.1 %; Eosinophils % 0.2 %; Hematocrit 38.9 % (37.5-50.1); Hemoglobin 11.5 g/dL (12.9-16.9); Immature Granulocytes % 0.3 % (0-4); Lymphocytes # 1.2 K/mcL (0.6-4.6); Lymphocytes % 12.3 %; Mean Corpuscular HGB Conc 29.6 g/dL (31.6-35.5); Mean Corpuscular Hemoglobin 27.4 pg (28.0-33.3); Mean Corpuscular Volume 92.6 fL (83.0-100.0); Mean Platelet Volume 11.5 fL (9.4-12.4); Monocytes % 10.7 %; Neutrophils # 7.3 K/mcL (1.6-8.9); Platelet Count 208 K/mcL (140-400); Red Cell Distribution Width 14.5 % (11.5-14.5); Segmented Neutrophils % 76.4 %; White Blood Count 9.5 K/mcL (4.3-11.1)
[2019-01-26 07:25] LABS: BUN/Creatinine Ratio 31 (6-26); Blood Urea Nitrogen 22 mg/dL (8-23); Calcium 9.4 mg/dL (8.6-10.3); Carbon Dioxide > 45 mEq/L (23-29); Chloride 86 mEq/L (98-107); Glucose 150 mg/dL (70-105); Osmolality,Calculated 300 (280-300); Potassium 3.6 mEq/L (3.5-5.1); Sodium 142 mEq/L (136-145); eGFR For African Americans > 60 (> 60); eGFR For Non-African Americans > 60 (> 60)
[2019-01-26] MEDS: Insulin LISPRO 300 UNITS/3 ML VIAL SQ SCH ×2 (08:29→12:29)
[2019-01-26] MEDS: Metoprolol XL (24 HR) Succ 50 MG TAB.ER.24H PO SCH (08:30)
[2019-01-26] MEDS: Finasteride 5 MG TABLET PO SCH (08:30)
[2019-01-26] MEDS: *HR* Digoxin 0.25 MG TABLET PO SCH (08:30)
[2019-01-26] MEDS: Furosemide 40 MG/4 ML VIAL IVP SCH (08:34)
[2019-01-26] MEDS ORDERED: predniSONE 10 MG TABLET PO SCH (09:00)
[2019-01-26] MEDS: Budesonide/Formoterol 160/4.5 1 PUFF INH IH SCH (10:42)
--- NOTE | 2019-01-26 12:44 | Internal Med Progress Note ---
Date of Encounter: 01/26/19 Time of Encounter: 12:37 - Assessment and plan (1) Congestive heart failure Current Visit: Yes Status: Acute Assessment and plan: January 23. BN peptide unimproved at 960. Continue IV Lasix and Toprol-XL. Lanoxin will be added. January 24. BN peptide has risen slightly to 1106. BUN and creatinine have risen to 37 and 0.96 respectively. Continue IV Lasix but reduce dose to 40 mg daily. Continue Toprol-XL and Lanoxin. January 25. BN peptide improved to 569. Continue present Rx. January 26. BN peptide improved to 501. Continue present Rx. Qualifiers: Heart failure type: diastolic Heart failure chronicity: acute on chronic Qualified Code(s): I50.33 - Acute on chronic diastolic (congestive) heart failure (2) COPD, severe Current Visit: No Status: Chronic Assessment and plan: January 23. Scheduled DuoNebs will be discontinued to lessen tachycardia. Symbicort will be restarted. Albuterol nebs will be ordered January 24. Continue Symbicort. Discontinue Solu-Medrol and start oral pr ednisone. January 26. Continue Symbicort and low-dose prednisone. (3) Urinary retention Current Visit: Yes Status: Acute Assessment and plan: January 24. Bladder scan showed more than 400 mL urine earlier today. Stack catheter was inserted. He will be started on Flomax and Proscar. January 25. Stack catheter will be discontinued. Continue Flomax and Proscar. (4) Type 2 diabetes mellitus Current Visit: No Status: Chronic Assessment and plan: January 24. Hemoglobin A1c was 8.1% on 01/15/2019. Levemir has been held. Continue Accu-Cheks with SSI. January 25. Blood sugars acceptable overall. Continue to monitor. Qualifiers: Diabetes mellitus prison insulin use: with oil heaterman use Diabetes mellitus complication status: without complication Qualified Code(s): E11.9 - Type 2 diabetes mellitus without complications; Z79.4 - senior living (current) use of insulin - Subjective Interval history: January 23. He has no new complaints. Staff reported heart rate this morning was 130-140/m. January 24. He has no new complaints. January 25. He has no new complaints. January 26. He has no new complaints and feels better. He wishes to go home. - Constitutional Vitals: Temp Pulse Resp BP Pulse Ox 97.9 F 89 16 96/65 94 01/26/19 10:23 01/26/19 10:23 01/26/19 10:43 01/26/19 10:23 01/26/19 10:43 Exam: He is resting comfortably on the side of the bed and appears in no acute distress. His affect is cheerful. Lungs are clear bilaterally. I reviewed his medications and lab results. Internal Medicine: Result - Labs CBC & Chem 7: 01/26/19 05:12 01/26/19 05:12 Labs: Short CBC 01/26/19 Range/Units 05:12 WBC 9.5 (4.3-11.1) K/mcL Hgb 11.5 L (12.9-16.9) g/dL Hct 38.9 (37.5-50.1) % Plt Count 208 (140-400) K/mcL Neutrophils # 7.3 (1.6-8.9) K/mcL BMP 01/26/19 05:12 Sodium 142 Potassium 3.6 Chloride 86 L Carbon Dioxide > 45 H* BUN 22 Creatinine 0.70 Glucose 150 H Calcium 9.4 - ABG Interpretation ABG results: ABG ABG pH 7.34 pH Units (7.32-7.45) 01/24/19 07:49 ABG pCO2 100 mmHg (35-45) H* 01/24/19 07:49 ABG pO2 75 mmHg (85-104) L 01/24/19 07:49 ABG O2 Saturation 92 % (95-98) L 01/24/19 07:49 PT/INR, D-dimer PT 15.4 Seconds (9.4-12.1) H 01/22/19 11:36 Consult Discharge Plan - Plan Referrals: Rowdy Tinajero DO [Primary Care Provider] - 1 week
--- NOTE | 2019-01-26 14:09 | Discharge Summary ---
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 Tamez is a 63 year old male who came to emergency room stating he had progressive dyspnea with cough productive of yellow and green sputum over the past few days. He had chronic ongoing abdominal discomfort. He states his oxygen level was approximately 75% saturation at home. He came to emergency room and was evaluated and was felt to have exacerbation of heart failure. He was admitted to [facility] for ongoing care needs. Initial orders were written by the emergency room physician. I saw him on January 22 and performed a history and physical. He was given IV Lasix. Lanoxin was added. BN peptide decreased to 501 by day of discharge. He appeared clinically be back to his baseline at time of discharge. He was given Symbicort and steroids. Pro calcitonin level returned WNL at 0.07 so antibiotics were not continued. He required intermittent BiPAP to maintain satisfactory oxygenation initially but gradually improved and appeared back to his baseline by day of discharge. He will continue with oxygen by nasal cannula. Bladder scan showed more than 400 mL urine on January 24. Stack catheter was inserted. He was started on Flomax and Proscar. The catheter was discontinued the following day and he was able to void spontaneously. He will continue on Flomax and Proscar at discharge. It was felt he would benefit from ongoing care in a SNF. Arrangements were complete the afternoon of January 26 for him to be discharged to [facility]. - Time Spent with Patient Total time spent providing and/or coordinating discharge services: - Discharge Medications Prescriptions: New Bumetanide [Bumex] 1 mg PO DAILY tablet Tamsulosin [Flomax] 0.4 mg PO DAILY capsule Digoxin [Lanoxin] 0.125 mg PO DAILY tablet predniSONE [PredniSONE] 10 mg PO DAILY 3 Days tablet Albuterol Neb [Proventil Neb] 2.5 mg IH Q2H PRN inhsol PRN Reason: Shortness Of Breath/Wheezing Acetaminophen [Tylenol] 650 mg PO Q6HR PRN tablet PRN Reason: Pain Potassium Chloride 10 meq PO BIDWM tab.er.prt MOM Conc [MILK OF MAGNESIA conc] 10 ml PO DAILY PRN ud.liq PRN Reason: Constipation Metoprolol XL (24 HR) Succ [Toprol Xl] 50 mg PO DAILY tab.er.24h GuaiFENesin/Dextromethorphan [Robitussin/Dm] 10 ml PO Q6HR PRN udc PRN Reason: Cough Finasteride [Proscar] 5 mg PO DAILY tablet Continued Albuterol Neb [Proventil Neb] 2.5 mg IH Q4HR PRN PRN Reason: Shortness Of Breath/Wheezing Tiotropium [Spiriva] 18 mcg IH DAILY Lovastatin 40 mg PO DAILY Insulin Glargine [Lantus] 25 unit SQ HS Sennosides [Senna] 17.2 mg PO HS Albuterol Sulfate [Proventil Inhaler] 2 puff IH Q6HR PRN #1 hfa.aer.ad PRN Reason: Wheezing Polyvinyl Alcohol [Artificial Tears] 1 drop RIGHT EYE QID Docusate Sodium [Dulcolax Stool Softener] 100 mg PO BID PRN PRN Reason: Constipation Nystatin POWDER [Nystop] 1 appl TP BID Budesonide/Formoterol 160/4.5 [Symbicort 160/4.5] 2 puff IH BIDR #1 hfa.aer.ad Isosorbide MONOnitrate (24 HR) [Imdur] 60 mg PO DAILY #30 tab.er.24h Aspirin 81 mg PO Q48H #0 Changed Omeprazole [PriLOSEC] 20 mg PO DAILY PRN 365 Days #0 PRN Reason: Dyspepsia Discontinued Potassium Chloride 20 meq PO BIDWM #14 tab.er.prt Bumetanide 1.5 mg PO DAILY #45 tablet Metoprolol XL (24 HR) Succ [Toprol Xl] 75 mg PO DAILY #45 tab.er.24h Home Medications: Albuterol Neb [Proventil Neb] 2.5 mg IH Q4HR PRN 08/28/15 [History] Lovastatin 40 mg PO DAILY 08/28/15 [History] Tiotropium [Spiriva] 18 mcg IH DAILY 08/28/15 [History] Insulin Glargine [Lantus] 25 unit SQ HS 09/29/15 [History] Sennosides [Senna] 17.2 mg PO HS 05/25/16 [History] Albuterol Sulfate [Proventil Inhaler] 2 puff IH Q6HR PRN #1 hfa.aer.ad 06/27/16 [Rx] Polyvinyl Alcohol [Artificial Tears] 1 drop RIGHT EYE QID 07/14/18 [History] Docusate Sodium [Dulcolax Stool Softener] 100 mg PO BID PRN 07/15/18 [History] Nystatin POWDER [Nystop] 1 appl TP BID 07/15/18 [History] Budesonide/Formoterol 160/4.5 [Symbicort 160/4.5] 2 puff IH BIDR #1 hfa.aer.ad 08/16/18 [Rx] Isosorbide MONOnitrate (24 HR) [Imdur] 60 mg PO DAILY #30 tab.er.24h 12/07/18 [Rx] Aspirin 81 mg PO Q48H #0 01/15/19 [Rx] Acetaminophen [Tylenol] 650 mg PO Q6HR PRN tablet 01/26/19 [Rx] Albuterol Neb [Proventil Neb] 2.5 mg IH Q2H PRN inhsol 01/26/19 [Rx] Bumetanide [Bumex] 1 mg PO DAILY tablet 01/26/19 [Rx] Digoxin [Lanoxin] 0.125 mg PO DAILY tablet 01/26/19 [Rx] Finasteride [Proscar] 5 mg PO DAILY tablet 01/26/19 [Rx] GuaiFENesin/Dextromethorphan [Robitussin/Dm] 10 ml PO Q6HR PRN udc 01/26/19 [Rx] MOM Conc [MILK OF MAGNESIA conc] 10 ml PO DAILY PRN ud.liq 01/26/19 [Rx] Metoprolol XL (24 HR) Succ [Toprol Xl] 50 mg PO DAILY tab.er.24h 01/26/19 [Rx] Omeprazole [PriLOSEC] 20 mg PO DAILY PRN 365 Days #0 01/26/19 [Rx] Potassium Chloride 10 meq PO BIDWM tab.er.prt 01/26/19 [Rx] Tamsulosin [Flomax] 0.4 mg PO DAILY capsule 01/26/19 [Rx] predniSONE [PredniSONE] 10 mg PO DAILY 3 Days tablet 01/26/19 [Rx] Allergies/Adverse Reactions: Allergy/AdvReac Type Severity Reaction Status Date / Time No Known Allergies Allergy Verified 12/10/17 17:19 Date of admission: 01/23/19 10:07 Primary care physician: Rowdy Tinajero DO Consults: 01/25/19 11:03 Consult to Occupational Therapy [CONS] Routine Comment: Evaluate, develop and implement POC Reason for Consult: Weakness Does patient have active BEDREST order?: No Is patient medically & hemodynamically stable?: Yes Patient assessed for mobility or mobilized this visit?: Yes Consult to Physical Therapy [CONS] Routine Comment: Evaluate, develop and implement POC Reason for Consult: Weakness Does patient have active BEDREST order?: No Is patient medically & hemodynamically stable?: Yes Patient assessed for mobility or mobilized this visit?: Yes - Constitutional Vitals: Temp Pulse Resp BP Pulse Ox 97.9 F 89 16 96/65 94 01/26/19 10:23 01/26/19 10:23 01/26/19 10:43 01/26/19 10:23 01/26/19 10:43 - Patient Status Disposition: Transfer SNF Condition: Fair - Discharge Instructions Forms: ED Satisfaction Letter - Diet and Activity Activity: wear oxygen at all times Diet: diabetic diet, low fat, low cholesterol, low salt diet
[2019-01-26 14:58] VITALS: BP 111/71
[2019-01-27] MEDS ORDERED: Bumetanide 1 MG TABLET PO SCH (09:00)
== END 2019-01-26 15:36 | DRG 194 ==
LOC: INPPIK 11:11 → EMEROOPIK 11:11 → INPPIK 12:53
PROVIDERS: ADMIT Internal Medicine; ATTEND Internal Medicine

== ENCOUNTER 2019-03-06 08:47 | Inpatient (IN) ==
[2019-03-06] MEDS ORDERED: Ipratropium/Albuterol Neb 3 ML IH ONE (08:51)
[2019-03-06 09:11] LABS: Basophils # 0.1 K/mcL (0.0-0.2); Basophils % 0.5 %; Eosinophils # 0.1 K/mcL (0.0-0.6); Hematocrit 45.4 % (37.5-50.1); Hemoglobin 12.9 g/dL (12.9-16.9); Immature Granulocytes % 0.5 % (0-4); Lymphocytes # 0.8 K/mcL (0.6-4.6); Lymphocytes % 9.2 %; Mean Corpuscular HGB Conc 28.4 g/dL (31.6-35.5); Mean Platelet Volume 11.1 fL (9.4-12.4); Monocytes # 0.8 K/mcL (0.0-1.3); Monocytes % 8.9 %; Neutrophils # 7.3 K/mcL (1.6-8.9); Platelet Count 214 K/mcL (140-400); Red Blood Count 4.78 M/mcL (4.19-5.50); Red Cell Distribution Width 14.4 % (11.5-14.5); Segmented Neutrophils % 79.9 %; White Blood Count 9.1 K/mcL (4.3-11.1)
[2019-03-06] MEDS ORDERED: Furosemide 40 MG/4 ML VIAL IVP ONE (09:12)
[2019-03-06 09:36] LABS: BUN/Creatinine Ratio 33 (6-26); Blood Urea Nitrogen 23 mg/dL (8-23); Calcium 9.6 mg/dL (8.6-10.3); Carbon Dioxide > 45 mEq/L (23-29); Chloride 90 mEq/L (98-107); Glucose 134 mg/dL (70-105); Osmolality,Calculated 308 (280-300); Potassium 4.4 mEq/L (3.5-5.1); Sodium 146 mEq/L (136-145); Troponin I 0.04 ng/mL (< 0.04); eGFR For African Americans > 60 (> 60); eGFR For Non-African Americans > 60 (> 60)
[2019-03-06 09:49] LABS: INR 1.4; Prothrombin Time 15.4 Seconds (9.4-12.1)
[2019-03-06 09:50] LABS: Hypochromasia Present (Not Present)
[2019-03-06] MEDS ORDERED: MOM Conc 10 ML UD.LIQ PO PRN (11:26)
[2019-03-06] MEDS ORDERED: Albuterol 2.5 MG/3 ML NEBULIZER IH PRN (11:26)
[2019-03-06] MEDS ORDERED: *HR* Dextrose 50 % in Water (Vial) 50 ML VIAL IVP PRN (11:26)
[2019-03-06] MEDS ORDERED: Dextrose Gel 15 GM/37.5 ML TUBE PO PRN ×2 (11:26)
[2019-03-06] MEDS ORDERED: D5% in Water 1,000 ML IVC PRN (11:26)
[2019-03-06] MEDS ORDERED: Acetaminophen 325 MG TABLET PO PRN (11:26)
[2019-03-06] MEDS ORDERED: Naloxone 0.4 MG/ML INJ IVP PRN (11:26)
[2019-03-06] MEDS ORDERED: Ondansetron ODT 4 MG TAB.RAPDIS SL PRN (11:26)
[2019-03-06] MEDS: Aspirin 81 MG TAB.CHEW PO SCH (13:27)
[2019-03-06] MEDS: Artificial Tears SOLN 15 ML BOTTLE RIGHT EYE SCH ×3 (13:27→21:17)
[2019-03-06] MEDS: Insulin LISPRO 300 UNITS/3 ML VIAL SQ SCH ×2 (13:33→16:07)
[2019-03-06] MEDS: ALPRAZolam 0.5 MG TABLET PO PRN ×2 (14:29→21:13)
[2019-03-06] MEDS ORDERED: Ipratropium/Albuterol Neb 3 ML IH SCH (16:00)
[2019-03-06] MEDS: Sennosides 8.6 MG TABLET PO SCH (21:13)
[2019-03-06] MEDS: Nystatin POWDER 30 GM BOTTLE TP SCH (21:13)
[2019-03-06] MEDS: Insulin DETEMIR 100 UNIT/ML X5UNITS SQ SCH (21:13)
[2019-03-07 06:30] LABS: Basophils # 0.1 K/mcL (0.0-0.2); Basophils % 0.6 %; Eosinophils # 0.1 K/mcL (0.0-0.6); Eosinophils % 1.4 %; Hematocrit 46.8 % (37.5-50.1); Hemoglobin 13.4 g/dL (12.9-16.9); Immature Granulocytes % 0.5 % (0-4); Lymphocytes # 1.3 K/mcL (0.6-4.6); Lymphocytes % 13.6 %; Mean Corpuscular HGB Conc 28.6 g/dL (31.6-35.5); Mean Corpuscular Volume 94.2 fL (83.0-100.0); Mean Platelet Volume 10.9 fL (9.4-12.4); Monocytes # 1.4 K/mcL (0.0-1.3); Monocytes % 14.1 %; Neutrophils # 6.9 K/mcL (1.6-8.9); Platelet Count 216 K/mcL (140-400); Red Blood Count 4.97 M/mcL (4.19-5.50); Red Cell Distribution Width 14.6 % (11.5-14.5); Segmented Neutrophils % 69.8 %; White Blood Count 9.9 K/mcL (4.3-11.1)
[2019-03-07 07:01] LABS: Hypochromasia Present (Not Present)
[2019-03-07 08:38] LABS: Alanine Aminotransferase 8 Units/L (7-52); Albumin 3.8 g/dL (3.5-5.7); Albumin/Globulin Ratio 1.2 (1.1-2.2); Alkaline Phosphatase 74 Units/L (34-104); Aspartate Amino Transferase 24 Units/L (13-39); BUN/Creatinine Ratio 33 (6-26); Bilirubin,Total 0.8 mg/dL (0.3-1.0); Blood Urea Nitrogen 27 mg/dL (8-23); Calcium 9.9 mg/dL (8.6-10.3); Carbon Dioxide > 45 mEq/L (23-29); Chloride 90 mEq/L (98-107); Globulin 3.3 g/dL (2.4-3.5); Glucose 143 mg/dL (70-105); Magnesium 2.1 mg/dL (1.6-2.6); Osmolality,Calculated 306 (280-300); Phosphorous 3.9 mg/dL (2.7-4.5); Sodium 144 mEq/L (136-145); Total Protein 7.1 g/dL (6.4-8.9); eGFR For African Americans > 60 (> 60); eGFR For Non-African Americans > 60 (> 60)
[2019-03-07] MEDS: Artificial Tears SOLN 15 ML BOTTLE RIGHT EYE SCH ×4 (08:39→21:19)
[2019-03-07] MEDS: *HR* Digoxin 0.25 MG TABLET PO SCH (08:40)
[2019-03-07] MEDS: Insulin LISPRO 300 UNITS/3 ML VIAL SQ SCH ×3 (08:40→17:19)
[2019-03-07] MEDS: Isosorbide MONOnitrate (24 HR) 60 MG TAB.ER.24H PO SCH (08:40)
[2019-03-07] MEDS: Finasteride 5 MG TABLET PO SCH (08:41)
[2019-03-07] MEDS: ALPRAZolam 0.5 MG TABLET PO PRN (08:41)
[2019-03-07] MEDS ORDERED: Bumetanide 1 MG TABLET PO SCH (09:00)
[2019-03-07] MEDS ORDERED: Metoprolol XL (24 HR) Succ 50 MG TAB.ER.24H PO SCH (09:00)
[2019-03-07] MEDS ORDERED: predniSONE 10 MG TABLET PO SCH (09:00)
[2019-03-07] MEDS ORDERED: Metoprolol XL (24 HR) Succ 25 MG TAB.ER.24H PO ONE (10:15)
[2019-03-07] MEDS: Nystatin POWDER 30 GM BOTTLE TP SCH ×2 (12:19→21:22)
[2019-03-07] MEDS: Bumetanide 1 MG TABLET PO SCH (17:19)
[2019-03-07] MEDS: Sennosides 8.6 MG TABLET PO SCH (21:19)
[2019-03-07] MEDS: Insulin DETEMIR 100 UNIT/ML X5UNITS SQ SCH (21:19)
[2019-03-08] MEDS: ALPRAZolam 0.5 MG TABLET PO PRN (01:46)
[2019-03-08] MEDS: Insulin LISPRO 300 UNITS/3 ML VIAL SQ SCH ×3 (08:03→16:34)
[2019-03-08] MEDS ORDERED: Metoprolol XL (24 HR) Succ 50 MG TAB.ER.24H PO SCH (09:00)
[2019-03-08] MEDS: Aspirin 81 MG TAB.CHEW PO SCH (09:57)
[2019-03-08] MEDS: *HR* Digoxin 0.25 MG TABLET PO SCH (10:00)
[2019-03-08] MEDS: Isosorbide MONOnitrate (24 HR) 60 MG TAB.ER.24H PO SCH (10:00)
[2019-03-08] MEDS: Finasteride 5 MG TABLET PO SCH (10:01)
[2019-03-08] MEDS: Bumetanide 1 MG TABLET PO SCH ×2 (10:01→18:12)
[2019-03-08] MEDS: Nystatin POWDER 30 GM BOTTLE TP SCH ×2 (10:03→19:48)
[2019-03-08] MEDS: Artificial Tears SOLN 15 ML BOTTLE RIGHT EYE SCH ×4 (10:05→19:47)
[2019-03-08 17:21] LABS: ABG Base Excess 19 mEq/L (-2 to 3); ABG HCO3 53 mEq/L (21-27); ABG Oxygen Saturation 95 % (95-98); ABG PCO2 115 mmHg (35-45); ABG PH 7.27 pH Units (7.32-7.45); ABG PO2 97 mmHg (85-104); ABG TCO2 > 50 mEq/L (20-26)
[2019-03-08 18:19] LABS: ABG Base Excess 20 mEq/L (-2 to 3); ABG HCO3 54 mEq/L (21-27); ABG Oxygen Saturation 95 % (95-98); ABG PCO2 118 mmHg (35-45); ABG PH 7.27 pH Units (7.32-7.45); ABG PO2 98 mmHg (85-104); ABG TCO2 > 50 mEq/L (20-26)
[2019-03-08 19:00] LABS: Basophils # 0.1 K/mcL (0.0-0.2); Basophils % 0.6 %; Eosinophils # 0.1 K/mcL (0.0-0.6); Eosinophils % 0.6 %; Hematocrit 44.3 % (37.5-50.1); Hemoglobin 12.5 g/dL (12.9-16.9); Immature Granulocytes % 1.5 % (0-4); Lymphocytes # 0.9 K/mcL (0.6-4.6); Lymphocytes % 11.3 %; Mean Corpuscular HGB Conc 28.2 g/dL (31.6-35.5); Mean Corpuscular Hemoglobin 26.8 pg (28.0-33.3); Mean Corpuscular Volume 94.9 fL (83.0-100.0); Mean Platelet Volume 10.5 fL (9.4-12.4); Monocytes # 0.8 K/mcL (0.0-1.3); Neutrophils # 6.1 K/mcL (1.6-8.9); Platelet Count 181 K/mcL (140-400); Red Blood Count 4.67 M/mcL (4.19-5.50); Red Cell Distribution Width 14.2 % (11.5-14.5); White Blood Count 8.1 K/mcL (4.3-11.1)
[2019-03-08] MEDS ORDERED: methylPREDNISolone 125 MG/2 ML VIAL IVP SCH (19:00)
[2019-03-08] MEDS ORDERED: Azithromycin 500 MG in 0.9 % Sodium Chloride 250 ML IVPB SCH (19:00)
[2019-03-08] MEDS ORDERED: cefTRIAXone 1,000 MG in Water for inj. (sterile) 10 ML IVP SCH (19:00)
[2019-03-08 19:12] LABS: Platelet Estimate Normal (Normal); Stomatocytes 2+ (Not Present)
[2019-03-08 19:18] VITALS: BP 115/70
[2019-03-08 19:28] LABS: BUN/Creatinine Ratio 32 (6-26); Blood Urea Nitrogen 22 mg/dL (8-23); Calcium 9.6 mg/dL (8.6-10.3); Carbon Dioxide > 45 mEq/L (23-29); Chloride 85 mEq/L (98-107); Glucose 115 mg/dL (70-105); Osmolality,Calculated 300 (280-300); Potassium 4.1 mEq/L (3.5-5.1); Sodium 143 mEq/L (136-145); eGFR For African Americans > 60 (> 60); eGFR For Non-African Americans > 60 (> 60)
[2019-03-08] MEDS: Insulin DETEMIR 100 UNIT/ML X5UNITS SQ SCH (19:47)
[2019-03-08] MEDS: Sennosides 8.6 MG TABLET PO SCH (19:48)
[2019-03-09] MEDS ORDERED: *HR* Enoxaparin 40 MG/0.4 ML SYRINGE SQ SCH (06:00)
== END 2019-03-08 21:08 | disposition other institution (70) | DRG 140 ==
LOC: INPPIK 08:47 → EMEROOPIK 08:47 → INPPIK 11:26
PROVIDERS: ADMIT Internal Medicine; ATTEND Internal Medicine